=== PATIENT | male | born 1945 ===

== ENCOUNTER 2016-07-23 17:32 | Observation (INO) | payer MEDICARE, OTHER ==
[2016-07-23] MEDS ORDERED: NS 0.9% 1000 ML* 1,000 ML IV ONE (20:47)
[2016-07-23] MEDS ORDERED: Ondansetron INJ* 2 MG/ML VIAL IV ONE (20:51)
[2016-07-23] MEDS ORDERED: Morphine INJ* 4 MG/ML 1 ML CARPUJECT IV ONE (20:51)
--- NOTE | 2016-07-23 21:32 | RAD ---
Indication: Atraumatic left-sided groin pain x2 weeks Comparison: None. Technique: 4 views left hip and femur. Report: Degenerative changes of the left hip includes narrowing of the joint space, sclerotic change of the acetabular roof and mild marginal osteophyte formation laterally. The visualized bones are adequately corticated and well aligned. There is no acute fracture, dislocation or other focal abnormality. The soft tissues appear grossly normal. IMPRESSION: Degenerative changes as described above without radiographically apparent fracture or dislocation. If the patient's symptoms persist, follow-up imaging is recommended.
[2016-07-23 22:02] LABS: Hematocrit 40 % (42-52); Hemoglobin 12.7 g/dl (14.0-18.0); Mean Corpuscular HGB Conc 32 g/dl (31-36); Mean Corpuscular Hemoglobin 26 pg (27-31); Mean Corpuscular Volume 81 fL (80-94); Mean Platelet Volume 9 um3 (7.4-10.4); Red Blood Count 4.97 10^6/ul (4.0-5.4); Red Cell Distribution Width 14 % (10.5-15)
[2016-07-23 22:05] LABS: Add Diff/Slide Review? Slide Review Added; Comments Flag Yes
[2016-07-23] MEDS ORDERED: Piperac/Tazob 3.375 gm in NS* 3.375 GM/100 ML BAG IVPB ONE (22:11)
[2016-07-23 22:17] LABS: BUN/Creatinine Ratio 15.3 (8-20); C Reactive Protein 103.69 mg/L (< 5.00); Calcium 9.7 mg/dL (8.6-10.3); EGFR African American 74.3 (>60); EGFR Non-African American 57.8 (>60); Globulin 4.5 g/dL (2-4); Magnesium 1.9 mg/dL (1.9-2.7); Potassium 4.1 mmol/L (3.5-5.0); Total Bilirubin 1.3 mg/dL (0.2-1.0); Total Protein 8.5 g/dL (6.4-8.9)
[2016-07-23 22:19] LABS: Troponin I 0.03 ng/mL (<0.04)
[2016-07-23] MEDS ORDERED: Iodixanol* (CONTRAST) 320 MG/ML 100 ML SDV IV ONE ×2 (22:33→22:41)
--- NOTE | 2016-07-23 22:57 | RAD ---
HISTORY: Left thigh pain TECHNIQUE: Multiple transverse and longitudinal ultrasound images were obtained of the veins of the left lower extremity using grayscale, color Doppler, and spectral Doppler imaging with and without compression and with augmentation. FINDINGS: VEINS: The common femoral vein, deep femoral vein, femoral vein and popliteal vein are compressible throughout their course, with normal flow on color Doppler imaging and normal response to augmentation on spectral Doppler imaging. SOFT TISSUES: Grossly normal. No large popliteal fossa cyst was identified. IMPRESSION: No sonographic evidence of deep vein thrombosis.
[2016-07-23] MEDS ORDERED: NS 0.9% 1000 ML* 1,300 ML IV ONE (23:17)
--- NOTE | 2016-07-24 00:21 | ED ---
Ian Lane Claudia, scribed for Christelle Farr MD on 07/23/16 at 2045 . Abdominal Pain/Male - HPI Summary HPI Summary: 71 year old male presents to the ED with abd pain. Pt states that he has had a persistent cough for about 2 weeks and went to PCP on 07/22/16 for Sx. The nurse called him today and told him to come to the ED due to possible Pneumonia from his CXR. Pt admits to to left anterior thigh pain aggravated with left leg extension (for about 2 days). Pt notes the LLQ abd pain has been persistent for the past few days. - History of Current Complaint Chief Complaint: EDAbdPain Stated Complaint: GROIN PAIN Time Seen by Provider: 07/23/16 20:24 Hx Obtained From: Patient Onset/Duration: Lasting Days, Still Present Timing: Constant Pain Intensity: 6 Pain Scale Used: 0-10 Numeric Location: Discrete At: LLQ, Other - left anterior thigh Radiates: No Character: Sharp Aggravating Factor(s): Movement - extension of the left leg Associated Signs And Symptoms: Positive: Vomiting. Negative: Fever, Chest Pain - Allergies/Home Medications Allergies/Adverse Reactions: Allergies Allergy/AdvReac Type Severity Reaction Status Date / Time No Known Allergies Allergy Verified 07/23/16 17:48 PMH/Surg Hx/FS Hx/Imm Hx Previously Healthy: Yes Cardiovascular History: Reports: Hx Hypertension, Hx Myocardial Infarction Infectious Disease History: No Infectious Disease History: Denies: Traveled Outside the [place] in Last 30 Days - Family History Known Family History: Positive: Hypertension - Social History Occupation: Unemployed Lives: With Family Alcohol Use: None Hx Substance Use: No Hx Tobacco Use: No Review of Systems Negative: Fever Eyes: Negative ENT: Negative Cardiovascular: Negative Negative: Chest Pain Respiratory: Negative Positive: Abdominal Pain - LLQ , Vomiting Genitourinary: Negative Positive: Other - left anterior thigh pain aggreavated with leg extension Skin: Negative Neurological: Negative Psychological: Normal All Other Systems Reviewed And Are Negative: Yes Physical Exam Triage Information Reviewed: Yes Vital Signs On Initial Exam: Initial Vitals Temp Pulse Resp BP Pulse Ox 98.5 F 67 18 90/58 100 07/23/16 17:35 07/23/16 17:35 07/23/16 17:35 07/23/16 17:35 07/23/16 17:35 Vital Signs Reviewed: Yes Appearance: Positive: Well-Appearing, No Pain Distress Skin: Positive: Warm, Skin Color Reflects Adequate Perfusion, Dry Eyes: Positive: EOMI, BETINA Neck: Positive: Supple, Nontender Respiratory/Lung Sounds: Positive: Clear to Auscultation, Breath Sounds Present. Negative: Rales, Rhonchi, Wheezes Cardiovascular: Positive: RRR. Negative: Murmur, Rub Abdomen Description: Positive: Soft, Other: - LLQ tenderness. Negative: Distended, Guarding Bowel Sounds: Positive: Present Musculoskeletal: Positive: Strength/ROM Intact, Other - left anterior thigh tenderness with good ROM except difficulty extending the left leg without pain. Pulses nml, no swelling and no erythema. Neurological: Positive: Sensory/Motor Intact, Alert, Oriented to Person Place, Time, CN Intact II-III Psychiatric: Positive: Affect/Mood Appropriate Diagnostics - Vital Signs Vital Signs Temp Pulse Resp BP Pulse Ox 07/23/16 17:35 98.5 F 67 18 90/58 100 - Laboratory Lab Results: Lab Results 07/23/16 07/23/16 07/23/16 Range/Units 21:57 21:57 21:57 WBC 19.0 H (3.5-10.8) 10^3/ul RBC 4.97 (4.0-5.4) 10^6/ul Hgb 12.7 L (14.0-18.0) g/dl Hct 40 L (42-52) % MCV 81 (80-94) fL MCH 26 L (27-31) pg MCHC 32 (31-36) g/dl RDW 14 (10.5-15) % Plt Count 272 (150-450) 10^3/ul MPV 9 (7.4-10.4) um3 Neut % (Auto) 78.1 (38-83) % Lymph % (Auto) 11.4 L (25-47) % [place] % (Auto) 9.8 H (1-9) % Eos % (Auto) 0.1 (0-6) % Baso % (Auto) 0.6 (0-2) % Absolute Neuts (auto) 14.8 H (1.5-7.7) 10^3/ul Absolute Lymphs (auto) 2.2 (1.0-4.8) 10^3/ul Absolute Monos (auto) 1.9 H (0-0.8) 10^3/ul Absolute Eos (auto) 0 (0-0.6) 10^3/ul Absolute Basos (auto) 0.1 (0-0.2) 10^3/ul Absolute Nucleated RBC 0.01 10^3/ul Nucleated RBC % 0 INR (Anticoag Therapy) 1.40 H (0.89-1.11) Sodium 133 (133-145) mmol/L Potassium 4.1 (3.5-5.0) mmol/L Chloride 95 L (101-111) mmol/L Carbon Dioxide 30 (22-32) mmol/L Anion Gap 8 (2-11) mmol/L BUN 19 (6-24) mg/dL Creatinine 1.24 H (0.67-1.17) mg/dL Est GFR ( Amer) 74.3 (>60) Est GFR (Non-Af Amer) 57.8 (>60) BUN/Creatinine Ratio 15.3 (8-20) Glucose 202 H (70-100) mg/dL Lactic Acid (0.5-2.0) mmol/L Calcium 9.7 (8.6-10.3) mg/dL Magnesium 1.9 (1.9-2.7) mg/dL Total Bilirubin 1.30 H (0.2-1.0) mg/dL AST 23 (13-39) U/L ALT 15 (7-52) U/L Alkaline Phosphatase 60 (34-104) U/L Troponin I 0.03 (<0.04) ng/mL C-Reactive Protein 103.69 H (< 5.00) mg/L Total Protein 8.5 (6.4-8.9) g/dL Albumin 4.0 (3.2-5.2) g/dL Globulin 4.5 H (2-4) g/dL Albumin/Globulin Ratio 0.9 L (1-3) Lipase 13 (11.0-82.0) U/L 07/23/16 Range/Units 21:57 WBC (3.5-10.8) 10^3/ul RBC (4.0-5.4) 10^6/ul Hgb (14.0-18.0) g/dl Hct (42-52) % MCV (80-94) fL MCH (27-31) pg MCHC (31-36) g/dl RDW (10.5-15) % Plt Count (150-450) 10^3/ul MPV (7.4-10.4) um3 Neut % (Auto) (38-83) % Lymph % (Auto) (25-47) % [place] % (Auto) (1-9) % Eos % (Auto) (0-6) % Baso % (Auto) (0-2) % Absolute Neuts (auto) (1.5-7.7) 10^3/ul Absolute Lymphs (auto) (1.0-4.8) 10^3/ul Absolute Monos (auto) (0-0.8) 10^3/ul Absolute Eos (auto) (0-0.6) 10^3/ul Absolute Basos (auto) (0-0.2) 10^3/ul Absolute Nucleated RBC 10^3/ul Nucleated RBC % INR (Anticoag Therapy) (0.89-1.11) Sodium (133-145) mmol/L Potassium (3.5-5.0) mmol/L Chloride (101-111) mmol/L Carbon Dioxide (22-32) mmol/L Anion Gap (2-11) mmol/L BUN (6-24) mg/dL Creatinine (0.67-1.17) mg/dL Est GFR ( Amer) (>60) Est GFR (Non-Af Amer) (>60) BUN/Creatinine Ratio (8-20) Glucose (70-100) mg/dL Lactic Acid 2.1 H* (0.5-2.0) mmol/L Calcium (8.6-10.3) mg/dL Magnesium (1.9-2.7) mg/dL Total Bilirubin (0.2-1.0) mg/dL AST (13-39) U/L ALT (7-52) U/L Alkaline Phosphatase (34-104) U/L Troponin I (<0.04) ng/mL C-Reactive Protein (< 5.00) mg/L Total Protein (6.4-8.9) g/dL Albumin (3.2-5.2) g/dL Globulin (2-4) g/dL Albumin/Globulin Ratio (1-3) Lipase (11.0-82.0) U/L Result Diagrams: 07/23/16 21:57 07/23/16 21:57 Lab Statement: Any lab studies that have been ordered have been reviewed, and results considered in the medical decision making process. - Radiology FEMUR XRAY Xray Interpretation: No Acute Changes - DEGENERATIVE CHNAGES DESCRIBED ABOVE WITHOUT RADIOGRAPHICALLY APPARENT FRACTURE FOR DSLOCATION. IF THE PATIENTS SYMPTOMS PERSIST, FOLLOW-UP IMAGING IS RECOMMENDED. Radiology Interpretation Completed By: Radiologist - CT CHEST/ABD CT CT Interpretation: Positive (See Comments) - POSITIVE FOR AN ACUTE HEMATOMA INVOLVING THE LEFT ILIOPSOAS MUSCLE EXTENDNG FROM THE LEVEL OF THE LEFT RENAL MIDPOLE DOWN THE GROIN. THICKNESS OF THE LEFT PSOAS IS APPROXIMATELY 8.5CM OPPOSED TO THE LEFT PSOAS WHICH IS APPROXIMATELY 4.2CM. CT Interpretation Completed By: Radiologist - EKG 23:41 Cardiac Rate: Tachycardia - 111 beats/min EKG Rhythm: Atrial Fibrillation ST Segment: Non-Specific - non-specific T- wave changes - Additional Comments Diagnostic Additional Comments: Venous Doppler Study: No sonographic evidence of deep vein thrombosis Abdominal Pain Fem Course/Dx - Course Course Of Treatment: 71 yo male who last took eliquis at 7am on 07/23 for his afib comes in with a few days of llq and left groin pain (pain with hip extension) after having a cough x [address] abd shows a large psoas muscle hematoma. Labs are concerning for leukocytosis and sl elevated lactic with soft bp's and elevated hr. Before I had the CT back I did give the pt the sepsis protocol of 30cc/kg of NS and zosyn for presumed abd etiology for his sepsis. His hg is 12. I have contacted the pharmacy and if needed we would give this pt 25u/kg of kcentra to a max of 5000 units if he starts actively bleeding. Dr. Chang will be admitting the pt - Diagnoses Provider Diagnoses: Psoas hematoma, left, secondary to anticoagulant therapy, Leukocytosis - Provider Notifications Discussed Care Of Patient With: Dr. Chang is notified of the patient. Discharge - Discharge Plan Condition: Guarded Disposition: ADMITTED TO [facility] The documentation as recorded by the Ian alvarado Claudia accurately reflects the service I personally performed and the decisions made by me, Christelle Farr MD.
[2016-07-24] MEDS ORDERED: Ondansetron INJ* 2 MG/ML VIAL IV PRN (01:01)
[2016-07-24] MEDS ORDERED: Docusate CAP* 100 MG PO PRN (01:01)
[2016-07-24] MEDS ORDERED: Acetaminophen TAB* 325 MG PO PRN (01:01)
[2016-07-24] MEDS ORDERED: Senna TAB PO PRN (01:01)
[2016-07-24] MEDS ORDERED: Al Hydrox/Mg Hydrox/Simet LIQ* 30 ML UDC PO PRN (01:01)
[2016-07-24] MEDS ORDERED: GuaiFENesin DM* 5 ML UDC PO PRN (01:04)
[2016-07-24] MEDS ORDERED: oxyCODONE/Acetamin 5/325 MG* TAB ONE (01:27)
[2016-07-24] MEDS: oxyCODONE/Acetamin 5/325 MG* TAB PO PRN ×4 (01:29→21:11)
[2016-07-24 01:51] LABS: Hematocrit 31 % (42-52); Hemoglobin 9.8 g/dl (14.0-18.0); Mean Corpuscular HGB Conc 32 g/dl (31-36); Mean Corpuscular Hemoglobin 26 pg (27-31); Mean Corpuscular Volume 81 fL (80-94); Mean Platelet Volume 9 um3 (7.4-10.4); Red Blood Count 3.84 10^6/ul (4.0-5.4); Red Cell Distribution Width 14 % (10.5-15); White Blood Count 16.1 10^3/ul (3.5-10.8)
[2016-07-24 01:56] LABS: Comments Flag Yes
[2016-07-24 02:36] LABS: Add Diff/Slide Review? Slide Review Added
[2016-07-24] MEDS: Metoprolol Succinate XL TAB* 25 MG PO SCH ×2 (03:44→08:15)
--- NOTE | 2016-07-24 05:10 | PN ---
Progress Note - Progress Note Note: Repeat H&H showed significant drop in short time period. Patient asymptomatic. Will order 2 units of PRBCs with lasix 20 IV in between. May need more Lasix after second unit of blood.
[2016-07-24] MEDS ORDERED: Furosemide IV* 10 MG/ML 2 ML VIAL (20 MG) IV ONE (06:00)
[2016-07-24] MEDS ORDERED: Furosemide IV* 10 MG/ML 10 ML VIAL (100 MG) IV ONE (06:00)
[2016-07-24 08:35] LABS: Urine Bilirubin Negative (Negative); Urine Glucose 1+(50 mg/dL) (Negative); Urine Nitrite Negative (Negative)
--- NOTE | 2016-07-24 10:05 | RAD ---
INDICATION: Cough, thigh pain and left lower quadrant pain COMPARISON: None. TECHNIQUE: Multidetector CT images were obtained from the lung apices to the ischial tuberosities with 95 mL Visipaque 320IV and oral contrast. CHEST: There are bibasilar dependent hypoventilatory changes. Mild to moderate groundglass opacifications are seen. There is a small left lung base pleural effusion. There is no suspicious nodules, masses or other focal abnormality. There is moderate cardiomegaly. Coarse calcification is noted the aortic arch. There is no mediastinal or hilar lymphadenopathy. ABDOMEN \T\ PELVIS: There is a small hiatal hernia with reflux of oral contrast into the esophagus. The liver, spleen, pancreas and adrenal glands are grossly normal in appearance. The gallbladder is normal. The kidneys are normal in appearance without focal mass, calcification or signs of hydronephrosis. The oral contrast has progressed as far as the splenic flexure. The small and large bowel are not distended. There is no gross retroperitoneal or mesenteric lymphadenopathy. The left iliopsoas muscle is enlarged up to 6.9 x 7.4 cm in the axial plane. There is stranding and infiltration of the neighboring peritoneal fat. The pelvic viscera is normal in appearance. The moderately calcified abdominal aorta and iliac arteries are normal in course and diameter. There are no sinister bone lesions. IMPRESSION: 1. Left perimuscular iliopsoas retroperitoneal hematoma. 2. Groundglass opacification and cardiomegaly is consistent with congestive heart failure. 3. There are additional chronic and degenerative findings as described in the body of the report.
--- NOTE | 2016-07-24 12:54 | HP ---
HISTORY AND PHYSICAL: DATE OF ADMISSION: 07/24/16 TIME OF EVALUATION: 0100. CHIEF COMPLAINT: Left-sided abdominal and left groin pain. HISTORY OF PRESENT ILLNESS: This is a 71-year-old male with a past medical history of atrial fibrillation, on anticoagulation, who presents to the emergency room after having been found to have abnormal blood work from [place] , with left-sided pain. The patient states he has been coughing for about 3 weeks. No fever, no shortness of breath, no chest pain, and for the past 2 weeks he has had left-sided pain. Today he had 2 episodes of nausea and vomiting. The pain got significantly worse. Initially, he went to his primary where they prescribed him hydrocodone and a cough suppressant. On arrival here , the patient was found to have an iliopsoas hematoma on CAT scan imaging and recommendation by Hematology was observation. He has had no episodes of diarrhea. No falls, no trauma. Otherwise, as mentioned, remaining review of systems is negative. In the emergency room, the patient was given Zosyn, 2 L of normal saline, and morphine. PAST MEDICAL HISTORY: Atrial fibrillation, on anticoagulation; hypertension; hyperlipidemia, congestive heart failure. 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 At that point, the patient was referred to transplant center for further evaluation for cardiac transplant. It is unclear what has transpired since, but he is followed by Dr. Barr. MEDICATIONS: 1. Eliquis 5 mg p.o. daily. 2. Hydrocodone/Tylenol 1 tab 3 times a day as needed for pain. 3. Metoprolol 25 mg daily. 4. Atorvastatin 40 mg daily. 5. Lisinopril 5 mg daily. 6. Benzonatate 100 mg as needed for cough. 7. Lasix 20 mg in the morning. ALLERGIES: No known drug allergies. SOCIAL HISTORY: The patient lives at home with his , son, and daughter. No tobacco, alcohol, or illicit drug use. His healthcare proxy is his . FAMILY HISTORY: No history of bleeding or clotting disorder. REVIEW OF SYSTEMS: As mentioned in the HPI. PHYSICAL EXAMINATION GENERAL: No acute distress, resting comfortably. VITAL SIGNS: Temp 98.5, pulse rate is 106, respiratory rate is 27, oxygen saturation is 93%, blood pressure is 108/80. HEENT: Pupils are equal and reactive, anicteric. Head normocephalic. NECK: Supple. No lymphadenopathy. RESPIRATORY: Diminished breath sounds. No wheezing, rhonchi, or rales. CARDIAC: Irregularly irregular rate and rhythm, tachycardic, soft systolic murmur heard throughout. ABDOMEN: Soft. Some left lower quadrant tenderness. No rebound or guarding. He has tenderness in his left groin region and upper thigh. Normal bowel sounds. EXTREMITIES: No clubbing, cyanosis, or edema. +1 DPs. NEUROLOGICAL: Alert and oriented x3. No focal neurologic deficits. LABORATORY DATA: White count 19, hemoglobin 12.7, hematocrit 40, platelets 272. INR is 1.40. Sodium 133, potassium 4.1, chloride 95, bicarb 30, BUN 19, creatinine 1.24, glucose 202. Lactic acid 2.1. Mag 1.9. CRP 103. RADIOGRAPHIC DATA: Femur x-ray: Degenerative changes described, without radiographic appearing fracture or dislocation. Doppler study of the left lower extremity, no sonographic evidence of DVT. Chest, abdomen, and pelvis CT: Positive for acute hematoma involving the left iliopsoas muscle, extending from the level of the left renal midpole down to the groin; thickness of the left psoas is proximal 8.5 cm, as to the right psoas , which is approximately 4.2. No bowel obstruction, free air or free fluid. Negative for diverticulitis or colitis. Normal appendix. Normal kidneys, urinary tract, and urinary bladder. ASSESSMENT AND PLAN: This is a 71-year-old male with a past medical history of nonischemic cardiomyopathy, atrial fibrillation, on anticoagulation, who presents to the emergency room with left-sided abdominal pain and left groin pain, found to have a iliopsoas hematoma. I. Iliopsoas hematoma. Assessment: I suspect this is most likely from his persistent coughing and being on anticoagulation. His hemoglobin and hematocrit is low. I do not have an old one to compare it to. His vitals are stable and this has been going on for about 2 weeks. ER spoke with Hematology and pharmacy regarding Kcentra, it is not indicated as he is hemodynamically stable. Plan: I am going to admit him to telemetry, watch his hemoglobin and hematocrit closely. Darin was last taken on 07/23/16 at 7 a.m., so it should be out of the system in about 6 hours, and hold his Eliquis, as mentioned. CHRONIC MEDICAL PROBLEMS: 1. Nonischemic cardiomyopathy. It is unclear what has transpired since his transfer to [place] for cardiac transplantation evaluation. I suspect his ejection fraction may have improved as he has not undergone transplant, but it is unclear based on our records here. Plan: I am going to continue his metoprolol. We will hold his lisinopril in the setting of his bump in creatinine and repeat his labs in the morning. We will also hold his Lasix as well for tonight. We will monitor his fluid status closely. 2. Atrial fibrillation. Assessment and Plan: May consider getting Cardiology, involved now that he is off Eliquis, with his cardiac history. He will need to be followed closely. 3. Acute kidney injury. The patient with a bump in his creatinine from 2012. It is unclear if he has had creatinine in between there. We will hold lisinopril for now as mentioned and follow up his labs in the morning. We will also hold his Lasix. 4. FEN: Place him on heart healthy diet. 5. DVT prophylaxis. The patient is moderate risk. Place him on SCDs. 6. Code status. Full code. PATIENT TIME: Greater than 40 minutes were spent doing the history and physical , more than half the time was in direct patient contact. CC: [facility]* [id number]/CPS #: [id number] EAN
[2016-07-24 15:47] LABS: Hematocrit 38 % (42-52); Hemoglobin 12.2 g/dl (14.0-18.0); Mean Corpuscular HGB Conc 32 g/dl (31-36); Mean Corpuscular Hemoglobin 26 pg (27-31); Mean Corpuscular Volume 82 fL (80-94); Mean Platelet Volume 9 um3 (7.4-10.4); Red Blood Count 4.64 10^6/ul (4.0-5.4); Red Cell Distribution Width 14 % (10.5-15); White Blood Count 13.9 10^3/ul (3.5-10.8)
[2016-07-24 15:51] LABS: Comments Flag Yes
[2016-07-24 15:59] LABS: BUN/Creatinine Ratio 19.3 (8-20); Calcium 8.9 mg/dL (8.6-10.3); EGFR African American 118.1 (>60); EGFR Non-African American 91.9 (>60); Potassium 3.7 mmol/L (3.5-5.0)
[2016-07-24] MEDS ORDERED: Furosemide IV* 10 MG/ML VIAL (40 MG) IV ONE (17:00)
[2016-07-24] MEDS ORDERED: Atorvastatin* 40 MG TAB PO SCH (21:00)
[2016-07-25] MEDS: oxyCODONE/Acetamin 5/325 MG* TAB PO PRN ×3 (02:40→12:43)
[2016-07-25] MEDS: Metoprolol Succinate XL TAB* 25 MG PO SCH (08:00)
[2016-07-25 08:29] LABS: Hematocrit 40 % (42-52); Hemoglobin 12.8 g/dl (14.0-18.0); Mean Corpuscular HGB Conc 32 g/dl (31-36); Mean Corpuscular Hemoglobin 26 pg (27-31); Mean Corpuscular Volume 82 fL (80-94); Mean Platelet Volume 9 um3 (7.4-10.4); Red Blood Count 4.89 10^6/ul (4.0-5.4); Red Cell Distribution Width 14 % (10.5-15); White Blood Count 15.4 10^3/ul (3.5-10.8)
[2016-07-25 08:48] LABS: BUN/Creatinine Ratio 19.5 (8-20); Calcium 9.1 mg/dL (8.6-10.3); EGFR African American 128.8 (>60); EGFR Non-African American 100.2 (>60); Potassium 3.7 mmol/L (3.5-5.0)
[2016-07-25 11:09] VITALS: BP 123/77
--- NOTE | 2016-07-25 11:31 | PN ---
Hospitalist Progress Note . HOSPITALIST DISCHARGE NOTE: See dc instructions and summary by me. Patient stable for dc dc instructions reviewed with the patient at the bedside. DC patient home today.
--- NOTE | 2016-07-26 07:53 | DS ---
CC: Dr. Ethel Barr DISCHARGE SUMMARY: DATE OF ADMISSION: 07/24/16 DATE OF DISCHARGE: 07/25/16 STATUS DURING HOSPITALIZATION: Inpatient. OUTPATIENT ACADEMIC COMPUTING DIRECTOR: Dr. Ethel Barr, [facility] Cardiology. PRINCIPAL DISCHARGE DIAGNOSIS: Left psoas muscle hematoma suffered while coughing in the setting of anticoagulation with Eliquis. SECONDARY DIAGNOSES: 1. History of atrial fibrillation on anticoagulation. 2. Hypertension. 3. Hyperlipidemia. 4. Congestive heart failure with echocardiograph in 2007 showing biventricular failure and ejection fraction reportedly between 7-10% with history of referral to transplant center for cardiac transplant evaluation. DISCHARGE MEDICATIONS: 1. Hold Eliquis until otherwise instructed. 2. Hydrocodone/Tylenol ([place]) one tablet up to every four hours p.r.n. pain ( prescribed) 3. Metoprolol 25 mg by mouth daily. 4. Atorvastatin 40 mg by mouth daily. 5. Lisinopril 5 mg by mouth daily. 6. Benzonatate 100 mg as needed for cough. 7. Lasix 20 mg in the morning. HISTORY OF PRESENT ILLNESS/HOSPITAL COURSE: Please see the H and P by Dr. Tri Chang on 07/24/16. In brief, Mr. Leonard is a 71-year-old gentleman with the medical history listed above who has been coughing for about three weeks. The patient denies any fever, no shortness of breath, but was having some left- sided chest pain. The patient had two episodes of nausea and vomiting, andsought medical evaluation and was prescribed a "pain killer" and a cough suppressant. The patient had an iliopsoas hematoma on CT scan, and was recommended for observation. No falls, no trauma reported. The only factor was his coughing. The patient was resuscitated in the emergency room; and, based on his hemoglobin declining from 12 down to 9, received two units of red blood cells and his hemoglobin appropriately bumped back up to 12. The patient' s pain is being treated with oral opiates, and he is doing well with this. He can ambulate independently and he is being discharged home in stable condition. The patient was considered for Kcentra, but this was not indicated as the patient was hemodynamically stable at presentation. The patient remained hemodynamically stable throughout the hosptialization; and , given his decreasing pain over time and his being off anticoagulation and the appropriate bump in his hemoglobin following transfusion, the patient is being discharged home in stable condition. Again, the patient last took Eliquis on at 7 a.m., and so the patient should be free of the effect of Eliquis by July 25, the day of discharge. In terms of his other chronic medical problems, these seem stable. The patient got Lasix in between his packed red blood cell transfusions and he seems to be tolerating the extra volume appropriately. Presumably, the blood loss caused some degree of hypovolemia which was presumably corrected given his hemoglobin is now back to where his baseline usually stands. He should follow up with Dr. Barr as well as [facility] in the next week. [facility] is currently closed and I will ask the hospitalist coordinator to make followup appointments for the patient tomorrow, 07/26/16. This could be communicated back to the patient directly. Regarding his Eliquis , he does have a high risk for stroke with his atrial fibrillation and re- anticoagulation should be considered when the patient is stable, and this will be a question for the outpatient cardiology and primary care team. For now, the risk of rebleeding is too high to initiate anticoagulation and they will be withheld until further instruction. TIME SPENT: Total time taken to discharge Ms. Leonard was 45 minutes, greater than half that time spent going over discharge instructions. He was told to come back to the hospital if he has any worsening symptoms most notably worsening pain or lightheadedness to signify worsening blood loss, and he said he will comply with this instruction. [id number]/[facility] #: [id number] [facility]ric
== END 2016-07-25 13:00 | disposition home or self-care (01) ==
LOC: ED 17:32 → MEDTELE 07-24 01:01
PROVIDERS: ADMIT Pediatrics; ATTEND Internal Medicine
DX: S30.1XXA Contusion of abdominal wall, initial encounter (principal); X58.XXXA Exposure to other specified factors, initial encounter; Y92.9 Unspecified place or not applicable; R05 Cough; D64.9 Anemia, unspecified; D72.829 Elevated white blood cell count, unspecified; I48.91 Unspecified atrial fibrillation; Z79.01 Long term (current) use of anticoagulants; I11.0 Hypertensive heart disease with heart failure; I50.9 Heart failure, unspecified; Z79.899 Other long term (current) drug therapy; E78.5 Hyperlipidemia, unspecified; I25.5 Ischemic cardiomyopathy; I25.2 Old myocardial infarction; M79.652 Pain in left thigh
CPT/HCPCS: 36415; 71260; 74177; 80048; 80053; 81003; 83605; 83690; 83735; 83880; 84484; 85025; 85027; 85610; 86140; 86850; 86900; 86901; 86922; 87040; 93005; 96361; 96365; 96375; 96376; 99285; A9270-GY; G0378; J1940; J2270; J2405; J2543; P9016; P9040; Q9967

== ENCOUNTER 2016-08-20 23:03 | Emergency (ER) | payer MEDICARE, OTHER ==
--- NOTE | 2016-08-21 00:18 | ED ---
Pop Lane Janilya, scribed for Weston Trimble MD on 08/21/16 at 0012 . Abdominal Pain/Male - HPI Summary HPI Summary: A 71 y/o male came in to [facility] presenting w/ a gradual onset of constant diffuse abd pain starting tonight at 2000. He states he had vomited one time at 2100. In addition, pt has mild diarrhea, no fever. Pt did not take medication for his condition. 2 weeks ago, pt had similar Sx. Pt did not see any medical professional for this issue. - History of Current Complaint Chief Complaint: EDAbdPain Stated Complaint: ABD PAIN/VOMITING Time Seen by Provider: 08/21/16 00:05 Hx Obtained From: Patient Onset/Duration: Gradual Onset Timing: Constant Severity Initially: Moderate Severity Currently: Moderate Pain Intensity: 7 Pain Scale Used: 0-10 Numeric Location: Diffuse Radiates: No Character: Dull Aggravating Factor(s): Nothing Alleviating Factor(s): Nothing - Allergies/Home Medications Allergies/Adverse Reactions: Allergies Allergy/AdvReac Type Severity Reaction Status Date / Time No Known Allergies Allergy Verified 07/23/16 17:48 PMH/Surg Hx/FS Hx/Imm Hx Endocrine/Hematology History: Denies: Hx Diabetes Cardiovascular History: Reports: Hx Congestive Heart Failure, Hx Hypercholesterolemia, Hx Hypertension, Hx Myocardial Infarction History: Denies: Hx Dialysis, Hx Renal Disease - Surgical History Surgery Procedure, Year, and Place: RT GROIN CATHETERIZATION/CARDIAC WORKUP Infectious Disease History: No Infectious Disease History: Denies: Traveled Outside the [place] in Last 30 Days - Family History Known Family History: Positive: Hypertension Negative: Cardiac Disease, Diabetes - Social History Lives: With Family Alcohol Use: None Hx Substance Use: No Substance Use Type: Reports: None Hx Tobacco Use: No Smoking Status (MU): Never Smoked Tobacco Review of Systems Negative: Fever Positive: Abdominal Pain, Vomiting, Diarrhea, Nausea All Other Systems Reviewed And Are Negative: Yes Physical Exam Triage Information Reviewed: Yes Vital Signs On Initial Exam: Initial Vitals Temp Pulse Resp BP Pulse Ox 97.3 F 104 16 164/92 99 08/20/16 23:19 08/20/16 23:19 08/20/16 23:19 08/20/16 23:19 08/20/16 23:19 Vital Signs Reviewed: Yes Appearance: Positive: Well-Appearing, No Pain Distress Skin: Positive: Warm Head/Face: Positive: Normal Head/Face Inspection Eyes: Positive: BETINA ENT: Positive: Hearing grossly normal Neck: Positive: Supple Respiratory/Lung Sounds: Positive: Clear to Auscultation, Breath Sounds Present Cardiovascular: Positive: Normal Abdomen Description: Positive: Nontender, No Organomegaly, Soft Bowel Sounds: Positive: Present Neurological: Positive: Sensory/Motor Intact, Normal Gait Psychiatric: Positive: Affect/Mood Appropriate Diagnostics - Vital Signs Vital Signs Temp Pulse Resp BP Pulse Ox 08/20/16 23:19 97.3 F 104 16 164/92 99 - Laboratory Result Diagrams: 08/21/16 00:30 08/21/16 00:30 Lab Statement: Any lab studies that have been ordered have been reviewed, and results considered in the medical decision making process. Re-Evaluation - Re-Evaluation First Eval Change: Improved Abdominal Pain Fem Course/Dx - Diagnoses Provider Diagnoses: Gastroenteritis Discharge - Discharge Plan Condition: Improved Disposition: HOME Patient Education Materials: Gastroenteritis (ED) Referrals: [facility] [Outside] Additional Instructions: Follow up with a primary care provider. The documentation as recorded by the Pop alvarado Janilya accurately reflects the service I personally performed and the decisions made by , Weston Trimble MD.
[2016-08-21 00:48] LABS: Hematocrit 43 % (42-52); Hemoglobin 13.6 g/dl (14.0-18.0); Mean Corpuscular HGB Conc 32 g/dl (31-36); Mean Corpuscular Hemoglobin 26 pg (27-31); Mean Corpuscular Volume 82 fL (80-94); Mean Platelet Volume 10 um3 (7.4-10.4); Red Blood Count 5.18 10^6/ul (4.0-5.4); Red Cell Distribution Width 15 % (10.5-15)
[2016-08-21 00:59] LABS: Albumin 3.9 g/dL (3.2-5.2); BUN/Creatinine Ratio 15.6 (8-20); C Reactive Protein 4.5 mg/L (< 5.00); Calcium 9.7 mg/dL (8.6-10.3); EGFR African American 128.8 (>60); EGFR Non-African American 100.2 (>60); Globulin 3.8 g/dL (2-4); Magnesium 1.9 mg/dL (1.9-2.7); Potassium 3.5 mmol/L (3.5-5.0); Total Bilirubin 2.1 mg/dL (0.2-1.0); Total Protein 7.7 g/dL (6.4-8.9)
[2016-08-21] MEDS: Ondansetron INJ* 2 MG/ML VIAL IV ONE ×2 (01:46→02:12)
[2016-08-21] MEDS: NS 0.9% 1000 ML* 1,000 ML IV ONE ×2 (01:46→02:13)
[2016-08-21] MEDS ORDERED: Ondansetron ODT TAB* 4 MG PO ONE (01:49)
[2016-08-21] MEDS ORDERED: Ondansetron ODT TAB* 4 MG ONE (01:49)
[2016-08-21 03:07] VITALS: BP 147/100
== END 2016-08-21 02:58 | disposition home or self-care (01) ==
LOC: ED 23:03
DX: K52.9 Noninfective gastroenteritis and colitis, unspecified (principal); R10.9 Unspecified abdominal pain; R11.2 Nausea with vomiting, unspecified; R19.7 Diarrhea, unspecified
CPT/HCPCS: 36415; 80053; 83605; 83690; 83735; 85025; 86140; 96374; 99282; A9270-GY; J2405

== ENCOUNTER 2016-08-22 09:10 | Emergency (ER) | payer MEDICARE, OTHER ==
[2016-08-22 09:58] VITALS: BP 198/122
[2016-08-22] MEDS ORDERED: Aspirin Low Dose CHEW TAB* 81 MG PO ONE (10:48)
[2016-08-22] MEDS ORDERED: Morphine INJ* 2 MG/ML 1 ML CARPUJECT IV ONE (10:50)
--- NOTE | 2016-08-22 12:05 | UC ---
kevin Lane Timothy, scribed for Peyton Wills DO on 08/22/16 at 1037 . 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 His pain and vomiting began on 08/20, and he appeared to the ED, where he was diagnosed with gastroenteritis. Upon returning home he continued to vomit and feel his pain increase. He denies any diarrhea or blood in the vomit. He denies any other Sx. His Hx includes NJ, HTN, hypercholesterolemia. - History of Current Complaint Stated Complaint: ABD PAIN VOMITING Time Seen by Provider: 08/22/16 10:31 Hx Obtained From: Patient Onset/Duration: Gradual Onset, Lasting Days, Still Present Timing: Constant Onset Severity: Moderate Current Severity: Moderate Pain Intensity: 10 - /10 Pain Location at: diffuse abdomen Associated Signs & Symptoms: Positive: Abdominal Pain, Diaphoresis, Nausea, Vomiting. Negative: Cough, Chest Pain, Diarrhea, Fever, SOB - Allergy/Home Medications Allergies/Adverse Reactions: Allergies Allergy/AdvReac Type Severity Reaction Status Date / Time No Known Allergies Allergy Verified 07/23/16 17:48 PMH/Surg Hx/FS Hx/Imm Hx Endocrine History Of: Denies: Diabetes Cardiovascular History Of: Reports: Cardiac Disorders - NJ, Hypertension, Myocardial Infarction, Congestive Heart Failure GI/ History Of: Denies: Renal Disease - Surgical History Surgical History: Yes Surgery Procedure, Year, and Place: RT GROIN CATHETERIZATION/CARDIAC WORKUP - Family History Known Family History: Positive: Hypertension Negative: Cardiac Disease, Diabetes - Social History Lives: With Family Alcohol Use: None Substance Use Type: None Smoking Status (MU): Never Smoked Tobacco Review of Systems Constitutional: Other - diaphoresis Skin: Negative Eyes: Negative ENT: Negative Respiratory: Negative Cardiovascular: Negative Gastrointestinal: Abdominal Pain, Vomiting Genitourinary: Negative Motor: Negative Neurovascular: Negative Musculoskeletal: Negative Neurological: Negative Psychological: Negative All Other Systems Reviewed And Are Negative: Yes Physical Exam Triage Information Reviewed: Yes Appearance: Well-Appearing, Well-Nourished, Pain Distress - severe Vital Signs: Initial Vital Signs Temp 96.0 F 08/22/16 09:53 Pulse 95 08/22/16 09:53 Resp 28 08/22/16 09:53 BP 198/122 08/22/16 09:53 Pulse Ox 100 08/22/16 09:53 Vital Signs Reviewed: Yes Eyes: Positive: Other: - possible icterous ENT: Positive: Hearing grossly normal. Negative: Muffled/hoarse voice Neck: Positive: Supple, Nontender Respiratory: Positive: Lungs clear, Normal breath sounds, No respiratory distress, No accessory muscle use Cardiovascular: Positive: No Murmur, Tachycardia. Negative: RRR - irregular heartbeat Abdomen Description: Positive: Soft, Guarding. Negative: Nontender - diffuse Bowel Sounds: Positive: Present Musculoskeletal Exam: Normal Neurological: Positive: Alert, Muscle Tone Normal Psychological Exam: Normal Psychological: Positive: Age Appropriate Behavior Skin Exam: Normal Diagnostics - EKG Cardiac Rate: Tachycardia - 104 BPM, Afib Re-Evaluation - Re-Evaluation First Eval Re-Evaluation Time: 10:43 Change: Unchanged Comment: Discussed possible Tx options Second Eval Re-Evaluation Time: 10:51 Change: Unchanged Comment: Pt was informed of decision to transfer care to [facility] Third Eval Re-Evaluation Time: 11:01 Change: Unchanged Comment: After further examination, Pt has slightly icteric sclera, although Pt' s daughter says that is his normal color. 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 After examination and review of his EKG, which showed Afib, he will be transferred by ambulance for further care to [facility]. - Differential Dx - Multi-Symptom Differential Diagnoses: Other - htn crisis, NJ, pancreatitis, ischemic bowel, afib, dehydration, hepatitis Provider Diagnoses: afib, abd pain unknown rojelio Discharge - Discharge Plan Condition: Stable Disposition: TRANS HIGHER LVL OF CARE FAC Discharge Disposition Comment: [facility] by ambulance Referrals: No Primary Care Phys,NOPCP [Medical Doctor] - The documentation as recorded by the kevin alvarado Timothy accurately reflects the service I personally performed and the decisions made by me, Peyton Wills DO.
== END 2016-08-22 11:22 | disposition short-term general hospital (02) ==
LOC: UCEAST 09:10
DX: R10.84 Generalized abdominal pain (principal); I48.91 Unspecified atrial fibrillation; R11.2 Nausea with vomiting, unspecified
CPT/HCPCS: 93005; 99213; G0463

== ENCOUNTER 2016-08-22 11:46 | Inpatient (IN) | payer MEDICARE, OTHER ==
[2016-08-22] MEDS ORDERED: Pantoprazole IV* 40 MG IV ONE (13:08)
[2016-08-22] MEDS ORDERED: Ondansetron INJ* 2 MG/ML VIAL IV ONE (13:08)
[2016-08-22] MEDS ORDERED: NS 0.9% 1000 ML* 1,000 ML IV ONE ×2 (13:08→15:42)
[2016-08-22 13:22] LABS: Hematocrit 49 % (42-52); Hemoglobin 15.8 g/dl (14.0-18.0); Mean Corpuscular HGB Conc 32 g/dl (31-36); Mean Corpuscular Hemoglobin 27 pg (27-31); Mean Corpuscular Volume 82 fL (80-94); Mean Platelet Volume 10 um3 (7.4-10.4); Red Blood Count 5.96 10^6/ul (4.0-5.4); Red Cell Distribution Width 15 % (10.5-15); White Blood Count 14.2 10^3/ul (3.5-10.8)
[2016-08-22 13:34] LABS: ALT 394 U/L (7-52); Albumin 4.2 g/dL (3.2-5.2); Alkaline Phosphatase 155 U/L (34-104); BUN/Creatinine Ratio 13.4 (8-20); Blood Urea Nitrogen 13 mg/dL (6-24); C Reactive Protein 13.11 mg/L (< 5.00); CO2 Carbon Dioxide 26 mmol/L (22-32); Calcium 10.4 mg/dL (8.6-10.3); Chloride 100 mmol/L (101-111); EGFR African American 98.7 (>60); EGFR Non-African American 76.7 (>60); Globulin 4.2 g/dL (2-4); Glucose 177 mg/dL (70-100); Lipase 14 U/L (11.0-82.0); Sodium 136 mmol/L (133-145); Total Protein 8.4 g/dL (6.4-8.9)
--- NOTE | 2016-08-22 14:56 | RAD ---
INDICATION: Right upper quadrant pain COMPARISON: CT July 23, 2016 TECHNIQUE: Longitudinal and transverse scans of the right upper quadrant were obtained. Doppler interrogation of the hepatic and portal venous system was performed. FINDINGS: Liver: The liver is normal in size and echogenicity. There are no focal masses. The liver measures 11.5 cm in cephalocaudal dimension. Vessels: There is normal hepatic and portal venous flow. Bile ducts: There is no evidence of intrahepatic or extrahepatic ductal dilatation. The common duct measures 0.5 cm. Gallbladder: There is gallbladder sludge.. There is no evidence of cholelithiasis, thickening of the gallbladder wall, or pericholecystic fluid. Pancreas: The visualized pancreas appears normal Right kidney: The right kidney is normal in size and echogenicity. There are no masses or calculi. There is no evidence of hydronephrosis. The right kidney measures 10.0 x 5.2 x 4.3 cm. IVC and aorta: The aorta and superior vena cava appear normal. Fluid: There is no ascites. Other: None. IMPRESSION: GALLBLADDER SLUDGE, OTHERWISE NEGATIVE.
[2016-08-22] MEDS ORDERED: Piperac/Tazob 3.375 gm in NS* 3.375 GM/100 ML BAG IVPB ONE (16:08)
[2016-08-22] MEDS ORDERED: Morphine INJ* 2 MG/ML 1 ML CARPUJECT IV PRN (17:02)
[2016-08-22] MEDS ORDERED: Labetalol IV* 5 MG/ML 20 ML VIAL IV PUSH ONE (17:02)
[2016-08-22] MEDS ORDERED: Iohexol 300* (CONTRAST) 10 ML SDV IV ONE (17:23)
[2016-08-22 18:14] LABS: Troponin I 0.04 ng/mL (<0.04)
--- NOTE | 2016-08-22 18:16 | RAD ---
INDICATION: Epigastric abdominal pain. COMPARISON: Comparison is made with a prior CT of the abdomen and pelvis from July 23, 2016. Correlation is also made with a prior right upper quadrant ultrasound from August 22, 2016. TECHNIQUE: A CT scan of the abdomen and pelvis was performed with intravenous and oral contrast following intravenous injection of 100 ml of Omnipaque 300 nonionic contrast. Contiguous axial sections were obtained from the lung bases through the symphysis pubis. Images were reconstructed in the coronal and sagittal planes. FINDINGS: There is mild dependent bilateral lower lobe subsegmental atelectasis. No pleural effusion is present. The heart appears enlarged and unchanged and is only partially visualized on this study. The liver and spleen are within normal limits in size without significant focal abnormality. The gallbladder is distended. No calcified gallstones are seen. The pancreas appears to be within normal limits in size. The kidneys and adrenal glands are normal in size. No hydronephrosis is seen. No significant focal renal abnormality is seen. The aorta is normal in caliber with mild calcific plaque present. No significant enlarged retroperitoneal lymph nodes are seen. There is enlargement of the left psoas muscle with a heterogeneous mass with mixed increased and decreased density present within the muscle. This measures 7.5 x 3.8 x 4.9 cm and previously measured 13.0 x 6.2 x 7.2 cm. This is most consistent with a resolving hematoma as previously noted. The stomach, small and large bowel appear nondistended. The appendix is within normal limits. There is no evidence for diverticulitis or colitis. No free intraperitoneal air or fluid is seen. No significant focal osseous abnormality is seen. IMPRESSION: 1. DISTENDED GALLBLADDER WITHOUT WALL THICKENING OR INFLAMMATORY CHANGE. 2. HEMATOMA IN THE LEFT PSOAS MUSCLE DECREASED IN SIZE FROM THE PRIOR EXAM.
[2016-08-22] MEDS ORDERED: Labetalol IV* 5 MG/ML 20 ML VIAL IV PUSH PRN (18:17)
--- NOTE | 2016-08-22 19:19 | ED ---
Ministerio Lane Adam, scribed for Ruy Mahmood MD on 08/22/16 at 1256 . Abdominal Pain/Male - HPI Summary HPI Summary: Pt is a 71 year old male presenting with abdominal pain and vomiting. He began having symptoms 2 nights ago and was diagnosed with gastroenteritis. He was feeling better yesterday so he began eating solid food again. He had no symptoms at all yesterday. This morning the pt woke up with the same abdominal pain again and he has vomited 3x today. He denies any diarrhea. No Hx of abdominal surgeries. Hx of heart surgery. - History of Current Complaint Chief Complaint: EDAbdPain Stated Complaint: ABD PAIN Time Seen by Provider: 08/22/16 12:48 Hx Obtained From: Patient Onset/Duration: Gradual Onset, Lasting Days, Still Present Timing: Intermittent Severity Initially: Moderate Severity Currently: Moderate Pain Intensity: 10 Pain Scale Used: 0-10 Numeric Location: Epigastric Radiates: No Aggravating Factor(s): Food - Possibly Alleviating Factor(s): Nothing Associated Signs And Symptoms: Positive: Vomiting. Negative: Diarrhea - Allergies/Home Medications Allergies/Adverse Reactions: Allergies Allergy/AdvReac Type Severity Reaction Status Date / Time No Known Allergies Allergy Verified 07/23/16 17:48 Home Medications: Home Medications Apixaban* [Eliquis*] 5 mg PO BID 08/22/16 [History Confirmed 08/22/16] Furosemide TAB* [Lasix TAB*] 20 mg PO DAILY 08/22/16 [History Confirmed 08/22/16 ] Lisinopril TAB* [Prinivil TAB*] 5 mg PO DAILY 08/22/16 [History Confirmed ] PMH/Surg Hx/FS Hx/Imm Hx Endocrine/Hematology History: Denies: Hx Diabetes Cardiovascular History: Reports: Hx Congestive Heart Failure, Hx Hypercholesterolemia, Hx Hypertension, Hx Myocardial Infarction History: Denies: Hx Dialysis, Hx Renal Disease - Surgical History Surgery Procedure, Year, and Place: RT GROIN CATHETERIZATION/CARDIAC WORKUP - Immunization History Date of Tetanus Vaccine: unk Date of Influenza Vaccine: fall 2015 Infectious Disease History: Denies: Traveled Outside the [place] in Last 30 Days - Family History Known Family History: Positive: Hypertension Negative: Cardiac Disease, Diabetes - Social History Occupation: Retired Lives: With Family - Son Alcohol Use: None Hx Substance Use: No Substance Use Type: Reports: None Hx Tobacco Use: No Smoking Status (MU): Never Smoked Tobacco Review of Systems Constitutional: Negative Negative: Fever Positive: Abdominal Pain, Vomiting. Negative: Diarrhea Positive: Other - Ecchymosis on the left forearm All Other Systems Reviewed And Are Negative: Yes Physical Exam Triage Information Reviewed: Yes Vital Signs On Initial Exam: Initial Vitals Temp Pulse Resp BP Pulse Ox 97.2 F 103 15 189/134 99 08/22/16 12:16 08/22/16 12:16 08/22/16 12:16 08/22/16 12:16 08/22/16 12:16 Vital Signs Reviewed: Yes Appearance: Positive: Well-Appearing, No Pain Distress Skin: Positive: Warm, Skin Color Reflects Adequate Perfusion, Dry, Other - Ecchymosis in the anterior left forearm proximally. Head/Face: Positive: Normal Head/Face Inspection Eyes: Positive: Normal ENT: Positive: Normal ENT inspection Neck: Positive: Supple, Nontender Respiratory/Lung Sounds: Positive: Clear to Auscultation, Breath Sounds Present Cardiovascular: Positive: RRR, Pulses are Symmetrical in both Upper and Lower Extremities Abdomen Description: Positive: Soft, Other: - Tenderness in the epigastrium Bowel Sounds: Positive: Present Musculoskeletal: Positive: Normal Neurological: Positive: Normal Psychiatric: Positive: Normal, Affect/Mood Appropriate Diagnostics - Vital Signs Vital Signs Temp Pulse Resp BP Pulse Ox 08/22/16 12:16 97.2 F 103 15 189/134 99 - Laboratory Lab Results: Lab Results 08/22/16 08/22/16 08/22/16 Range/Units 12:11 12:11 12:11 WBC 14.2 H (3.5-10.8) 10^3/ul RBC 5.96 H (4.0-5.4) 10^6/ul Hgb 15.8 (14.0-18.0) g/dl Hct 49 (42-52) % MCV 82 (80-94) fL MCH 27 (27-31) pg MCHC 32 (31-36) g/dl RDW 15 (10.5-15) % Plt Count 193 (150-450) 10^3/ul MPV 10 (7.4-10.4) um3 Neut % (Auto) 87.2 H (38-83) % Lymph % (Auto) 6.8 L (25-47) % [place] % (Auto) 5.1 (1-9) % Eos % (Auto) 0.4 (0-6) % Baso % (Auto) 0.5 (0-2) % Absolute Neuts (auto) 12.4 H (1.5-7.7) 10^3/ul Absolute Lymphs (auto) 1.0 (1.0-4.8) 10^3/ul Absolute Monos (auto) 0.7 (0-0.8) 10^3/ul Absolute Eos (auto) 0 (0-0.6) 10^3/ul Absolute Basos (auto) 0.1 (0-0.2) 10^3/ul Absolute Nucleated RBC 0.01 10^3/ul Nucleated RBC % 0.1 INR (Anticoag Therapy) 1.18 H (0.89-1.11) Sodium 136 (133-145) mmol/L Potassium TNP Chloride 100 L (101-111) mmol/L Carbon Dioxide 26 (22-32) mmol/L Anion Gap TNP BUN 13 (6-24) mg/dL Creatinine 0.97 (0.67-1.17) mg/dL Est GFR ( Amer) 98.7 (>60) Est GFR (Non-Af Amer) 76.7 (>60) BUN/Creatinine Ratio 13.4 (8-20) Glucose 177 H (70-100) mg/dL Lactic Acid (0.5-2.0) mmol/L Calcium 10.4 H (8.6-10.3) mg/dL Total Bilirubin 8.40 H D (0.2-1.0) mg/dL AST TNP ALT 394 H (7-52) U/L Alkaline Phosphatase 155 H (34-104) U/L Troponin I (<0.04) ng/mL C-Reactive Protein 13.11 H (< 5.00) mg/L Total Protein 8.4 (6.4-8.9) g/dL Albumin 4.2 (3.2-5.2) g/dL Globulin 4.2 H (2-4) g/dL Albumin/Globulin Ratio 1.0 (1-3) Lipase 14 (11.0-82.0) U/L 08/22/16 08/22/16 Range/Units 12:11 15:37 WBC (3.5-10.8) 10^3/ul RBC (4.0-5.4) 10^6/ul Hgb (14.0-18.0) g/dl Hct (42-52) % MCV (80-94) fL MCH (27-31) pg MCHC (31-36) g/dl RDW (10.5-15) % Plt Count (150-450) 10^3/ul MPV (7.4-10.4) um3 Neut % (Auto) (38-83) % Lymph % (Auto) (25-47) % [place] % (Auto) (1-9) % Eos % (Auto) (0-6) % Baso % (Auto) (0-2) % Absolute Neuts (auto) (1.5-7.7) 10^3/ul Absolute Lymphs (auto) (1.0-4.8) 10^3/ul Absolute Monos (auto) (0-0.8) 10^3/ul Absolute Eos (auto) (0-0.6) 10^3/ul Absolute Basos (auto) (0-0.2) 10^3/ul Absolute Nucleated RBC 10^3/ul Nucleated RBC % INR (Anticoag Therapy) (0.89-1.11) Sodium (133-145) mmol/L Potassium 4.6 Chloride (101-111) mmol/L Carbon Dioxide (22-32) mmol/L Anion Gap BUN (6-24) mg/dL Creatinine (0.67-1.17) mg/dL Est GFR ( Amer) (>60) Est GFR (Non-Af Amer) (>60) BUN/Creatinine Ratio (8-20) Glucose (70-100) mg/dL Lactic Acid 2.8 H* (0.5-2.0) mmol/L Calcium (8.6-10.3) mg/dL Total Bilirubin (0.2-1.0) mg/dL AST 214 H ALT (7-52) U/L Alkaline Phosphatase (34-104) U/L Troponin I 0.04 H* (<0.04) ng/mL C-Reactive Protein (< 5.00) mg/L Total Protein (6.4-8.9) g/dL Albumin (3.2-5.2) g/dL Globulin (2-4) g/dL Albumin/Globulin Ratio (1-3) Lipase (11.0-82.0) U/L Result Diagrams: 08/22/16 12:11 08/22/16 15:37 Lab Statement: Any lab studies that have been ordered have been reviewed, and results considered in the medical decision making process. - Additional Comments Diagnostic Additional Comments: Gallbladder Ultrasound - IMPRESSION: GALLBLADDER SLUDGE, OTHERWISE NEGATIVE. LACTIC ACID - 2.8 Abdominal Pain Fem Course/Dx - Course Course Of Treatment: Mr. Leonard presented C/O epigastric pain and vomiting. He had presented Monday night with the same symptoms which resolved. He remained symptom free on Monday and then it recurred this AM. He has only had a little soup last evening. His labs indicated a cholangitis although his U/S is negative. He has been treated symptomatically as well as receiving fluids and antibiotics. - Diagnoses Provider Diagnoses: Cholangitis Discharge - Discharge Plan Condition: Stable Disposition: ADMITTED TO [facility] The documentation as recorded by the Ministerio alvarado Adam accurately reflects the service I personally performed and the decisions made by me, Ruy Mahmood MD.
[2016-08-22 20:26] LABS: Urine Bacteria 1+ (Absent); Urine Bilirubin Negative (Negative); Urine Glucose Negative (Negative); Urine Nitrite Negative (Negative)
[2016-08-22 20:51] LABS: Iron 53 ug/dL (50-212); Total Iron Binding Capacity 326 mcg/dL (250-450); Transferrin 233 mg/dL (203-362)
[2016-08-22] MEDS ORDERED: Apixaban* 5 MG TAB PO SCH (21:00)
[2016-08-22] MEDS: Heparin VIAL(*) 5000 UNITS/ML VIAL (FIVE THOUSAND) SUBCUT SCH (22:01)
[2016-08-22] MEDS: Piperac/Tazob 3.375 gm in NS* 3.375 GM/100 ML BAG IVPB SCH (22:06)
[2016-08-22] MEDS: NS 0.9% 1000 ML* 1,000 ML IV SCH (22:06)
--- NOTE | 2016-08-23 00:36 | HP ---
HISTORY AND PHYSICAL: DATE OF ADMISSION: 08/22/16 PRIMARY CARE PHYSICIAN: Dr. Rudolph at [facility]. CHIEF COMPLAINT: Abdominal pain. HISTORY OF PRESENT ILLNESS: Mr. Leonard is a 71-year-old male with past medical history of hypertension, hyperlipidemia, CAD, status post SC, systolic congestive heart failure, with last reported ejection fraction of 7% to 10%, AFib on Eliquis, who was hospitalized recently for a left psoas hematoma, presents to the hospital with abdominal pain. The patient states that symptoms began 2 nights ago with a burning pain and he also experienced some nausea and vomiting x2. He presented to the emergency department, labs were notable at that time for a mild leukocytosis, which has been chronic and some mild LFT abnormalities. The patient was diagnosed with gastroenteritis and discharged home. He states initially he felt better; however, early this morning, he tried some rice soup when he developed this burning pain again. He states that it is present in the epigastric area and left lower quadrant. He went to [facility] where he had nausea and vomiting 3 times there, which he reports was mostly some food including the rice soup and was otherwise clear. No blood was noted. He also felt diaphoretic during the episodes of emesis. Due to his persistent symptoms, [facility] transferred the patient to the emergency department. He reports he has felt well otherwise over the past week since his discharge from the hospital on 07/25/16. He has been moving his bowels. Denies any constipation or diarrhea, has not been having any fever or chills. No shortness of breath or cough. He states he has never had a pain like this before. In the emergency department, he was noted to have worsening LFT abnormalities and hospitalist service was consulted for possible admission. PAST MEDICAL HISTORY: 1. AFib, on Eliquis. 2. Hypertension. 3. Hyperlipidemia. 4. CAD, status post SC. 5. CHF with last reported ejection fraction of 7% to 10% on a 2014 ROSA M. PAST SURGICAL HISTORY: Cardiac catheterization. MEDICATIONS: 1. Lisinopril 5 mg by mouth daily. 2. Eliquis 5 mg by mouth 2 times daily, which the patient was instructed to hold after his last hospitalization; however, he did not understand this. 3. Atorvastatin 40 mg by mouth daily, which the patient states he has not been taking. 4. Metoprolol succinate 25 mg by mouth daily. 5. Lasix 20 mg by mouth daily. 6. Senna one tablet by mouth daily. 7. Tessalon 100 mg by mouth 3 times daily as needed for cough. FAMILY HISTORY: Noncontributory. SOCIAL HISTORY: The patient denies any cigarette, alcohol, tobacco. No illicit drug use. The patient reports no known drug allergies. REVIEW OF SYSTEMS: A 12-point review of systems is negative except as noted above in HPI. PHYSICAL EXAMINATION GENERAL: The patient is a middle-aged man, lying in bed, in no apparent distress. VITAL SIGNS: On admission, temperature 97.2, heart rate of 103, respiratory rate of 15, O2 saturation 99% on room air, blood pressure 189/134. HEENT: Possibly some mild scleral icterus, moist mucous membranes. No cervical adenopathy. CARDIOVASCULAR: Tachycardic, irregularly irregular. No murmurs appreciated. ABDOMEN: Soft, nondistended. Bowel sounds positive, tender to palpation in the epigastric area and left lower quadrant. No right upper quadrant tenderness. No rebound or guarding. EXTREMITIES: No cyanosis, clubbing, or edema. LUNGS: Possibly some trace rales at the bases, otherwise clear. NEUROLOGIC: The patient is alert and oriented x3. No focal neurological deficits. No pain with left hip flexion. LABS AND DIAGNOSTICS: White blood cell count of 14.2, hematocrit of 49, platelets of 193, INR of 1.18. Sodium 136, potassium 4.6, chloride of 100, carbon dioxide 26, BUN of 13, creatinine of 0.97, glucose of 177, lactic acid of 2.8, calcium of 10.4, total bilirubin of 8.4, AST of 214, ALT of 394, alk phos of 155, CRP of 13, lipase of 14. Gallbladder ultrasound showed some gallbladder sludge. No ductal dilatation. No stones. CT of the abdomen and pelvis is pending. EKG personally reviewed shows AFib with rapid heart rate. ASSESSMENT AND PLAN: Hyperbilirubinemia and transaminitis in the setting of epigastric and left lower quadrant abdominal pain in a 71-year-old man with a past medical history of hypertension, hyperlipidemia, CAD, status post SC, AFib on Eliquis, and systolic CHF with a reported ejection fraction of 7% to 10% on last echo. 1. Abdominal pain, transaminitis, hyperbilirubinemia. The patient's ultrasound is relatively unremarkable aside from some sludge. As noted above, CT of the abdomen and pelvis is pending. The patient does have a mild leukocytosis; however, this has been present for the past month and has been relatively unchanged. Not convinced this is cholangitis as the patient has been afebrile; however, will continue the Zosyn for now that he received in the emergency department to cover in case this is the case. We will follow up with the patient's CT scan and likely contact GI to consult to see if they feel any intervention is needed. The patient's pain is not in an area that would indicate a right upper quadrant pathology. We will also check a hepatitis panel and iron, a TIBC, and a transferrin saturation, recheck the patient's lactic acid. She has received 1 L bolus in the emergency department. We will continue on the low maintenance fluids for now, so I am unsure how much p.o. intake the patient will have. 2. Atrial fibrillation. The patient is tachycardic currently and hypertensive. We will give him a dose of IV labetalol and continue his home metoprolol. The patient did not stop taking his Eliquis after the previous hospitalization as instructed; however, his hematocrit has remained stable. We will continue his home Eliquis for now. 3. Hypertension. As noted above, the patient is currently hypertensive. Ordered a one-time dose of labetalol. Continue his home lisinopril and metoprolol. 4. Hyperlipidemia. The patient reports he has not been taking his statin at home in the setting of his transaminitis. We will continue to hold this for now. 5. Chronic systolic CHF. Apparently, his ejection fraction is 7% to 10%, which was lasted noted on a 2014 ROSA M. We will try to obtain more recent records from the patient's almond blancher, Dr. Gerardo. For now, we will continue metoprolol, lisinopril. We will hold the patient's Lasix for now. Can reevaluate his fluid status in the morning. 6. DVT prophylaxis. Eliquis. 7. Code status. The patient is a full code. TIME SPENT: Total time spent on this admission 50 minutes, with over half the time spent with the patient in counseling and coordinating care. CC: Dr. Rudolph at [facility]* [id number]/[facility] #: [id number] EAN
[2016-08-23 04:51] LABS: Hematocrit 38 % (42-52); Hemoglobin 12.6 g/dl (14.0-18.0); Mean Corpuscular HGB Conc 33 g/dl (31-36); Mean Corpuscular Hemoglobin 27 pg (27-31); Mean Corpuscular Volume 82 fL (80-94); Mean Platelet Volume 9 um3 (7.4-10.4); Red Blood Count 4.68 10^6/ul (4.0-5.4); Red Cell Distribution Width 15 % (10.5-15)
[2016-08-23 05:02] LABS: BUN/Creatinine Ratio 11.2 (8-20); Calcium 8.9 mg/dL (8.6-10.3); EGFR Non-African American 84.8 (>60); Globulin 3.1 g/dL (2-4); Potassium 3.3 mmol/L (3.5-5.0); Total Bilirubin 7.6 mg/dL (0.2-1.0); Total Protein 6.1 g/dL (6.4-8.9)
[2016-08-23] MEDS: Heparin VIAL(*) 5000 UNITS/ML VIAL (FIVE THOUSAND) SUBCUT SCH (06:18)
[2016-08-23] MEDS: Piperac/Tazob 3.375 gm in NS* 3.375 GM/100 ML BAG IVPB SCH ×3 (06:18→21:45)
[2016-08-23] MEDS: Metoprolol Succinate XL TAB* 25 MG PO SCH (08:41)
[2016-08-23] MEDS: Senna TAB PO SCH (08:42)
[2016-08-23] MEDS: Lisinopril TAB* 5 MG PO SCH (08:42)
[2016-08-23] MEDS ORDERED: Furosemide TAB* 40 MG PO SCH (09:00)
--- NOTE | 2016-08-23 11:28 | RAD ---
Indication: Elevated liver enzymes, abdominal pain. Axial T2, coronal T2, MRCP and multiple maximum intensity projection images of the common duct was performed. The gallbladder is elongated and somewhat tortuous. There are multiple filling defects present consistent with cholelithiasis. There is suggestion of a filling defect in the most distal common bile duct measuring approximately 5 mm. The common duct measures up to 9 mm. No intrahepatic ductal dilatation is noted. Pancreatic duct is not dilated. IMPRESSION: Filling defect in the common duct may represent a common duct stone measuring 5 mm. A tortuous gallbladder is noted. There is likely sludge within the gallbladder.
--- NOTE | 2016-08-23 12:03 | PN ---
Hospitalist Progress Note Recent echocardiagram (01/2016) and recent cardiology [place] [facility] [place] now in the patient's chart. EF was 50-55%.
[2016-08-23] MEDS ORDERED: Indomethacin SUPP(NF) 50 MG SUP PR ONE (14:55)
[2016-08-23] MEDS ORDERED: Succinylcholine* 20 MG/ML 10 ML VIAL ONE (15:07)
[2016-08-23] MEDS ORDERED: fentaNYL* 50 MCG/ML 2 ML VIAL (100 MCG VIAL) ONE ×2 (15:07→15:44)
[2016-08-23] MEDS ORDERED: Midazolam* 1 MG/ML 2 ML VIAL (2 MG) ONE (15:07)
[2016-08-23] MEDS ORDERED: Lidocaine 2% MPF* 2 ML VIAL ONE (15:07)
[2016-08-23] MEDS ORDERED: Propofol* 10 MG/ML 20 ML BTL IV PUSH ONE (15:07)
--- NOTE | 2016-08-23 15:13 | PN ---
Subjective Date of Service: 08/23/16 Interval History: Patient seen this morning and again in the afternoon. He states that his pain has not returned since last night. Explained results of MRCP to the patient and he understands he will be going for procedure this afternoon. Family History: Unchanged from Admission Social History: Unchanged from Admission Past Medical History: Unchanged from Admission Objective Active Medications: Piperacillin Sod/Tazobactam Sod (Zosyn 3.375 Gm In Ns Premix*) 3.375 gm in 100 mls @ 25 mls/hr IVPB Q8H [facility] Last Admin: 08/23/16 13:37 Dose: 25 mls/hr Sodium Chloride (Ns 0.9% 1000 Ml*) 1,000 mls @ 75 mls/hr IV PER RATE [facility] Last Admin: 08/22/16 22:06 Dose: 75 mls/hr Labetalol HCl (Trandate Iv*) 10 mg IV PUSH Q6H PRN PRN Reason: BLOOD PRESSURE Lisinopril (Prinivil Tab*) 5 mg PO DAILY [facility] Last Admin: 08/23/16 08:42 Dose: 5 mg Metoprolol Succinate (Toprol Xl Tab*) 25 mg PO DAILY [facility] Last Admin: 08/23/16 08:41 Dose: 25 mg Morphine Sulfate (Morphine Inj (Syringe)*) 2 mg IV Q4H PRN PRN Reason: PAIN Last Admin: 08/22/16 22:01 Dose: 2 mg Pneumococcal Polyvalent Vaccine (Pneumococcal Vac Polyvalent*) 0.5 ml IM .ONCE ONE Stop: 08/24/16 09:01 Senna (Senokot Tab*) 1 tab PO DAILY [facility] Last Admin: 08/23/16 08:42 Dose: 1 tab Vital Signs 08/22/16 08/22/16 08/22/16 17:00 18:03 19:00 Temperature Pulse Rate 102 106 102 Respiratory 25 18 Rate Blood Pressure (mmHg) O2 Sat by Pulse 98 95 95 Oximetry 08/22/16 08/22/16 08/22/16 19:30 20:00 20:22 Temperature 98.4 F Pulse Rate 104 104 Respiratory 17 18 16 Rate Blood Pressure 153/107 152/92 (mmHg) O2 Sat by Pulse 97 97 Oximetry 08/23/16 08/23/16 08/23/16 00:20 04:03 07:35 Temperature 97.7 F 98.3 F 99.0 F Pulse Rate 92 80 87 Respiratory 20 20 16 Rate Blood Pressure 96/58 98/61 109/61 (mmHg) O2 Sat by Pulse 97 98 96 Oximetry 08/23/16 08/23/16 08:00 11:01 Temperature 99.1 F Pulse Rate 82 Respiratory 18 16 Rate Blood Pressure 121/68 (mmHg) O2 Sat by Pulse 97 Oximetry Oxygen Devices in Use Now: None Appearance: Elderly, belarusian M, laying in bed in NAD Eyes: - - Mild scleral icterus Ears/Nose/Mouth/Throat: Mucous Membranes Moist Neck: NL Appearance and Movements; NL JVP Respiratory: Symmetrical Chest Expansion and Respiratory Effort, Clear to Auscultation Cardiovascular: - - IRIR, no m/g/r Abdominal: - - Soft, mild distension, non-tender, BS+ Lymphatic: No Cervical Adenopathy Extremities: No Edema Skin: No Rash or Ulcers Neurological: Alert and Oriented x 3 Result Diagrams: 08/23/16 04:23 08/23/16 04:23 Microbiology and Other Data: Microbiology 08/22/16 19:59 Urine Culture - Final Urine No Growth (<1,000 CFU/mL) Assess/Plan/Problems-Billing Assessment: Choledocholithiasis, obstructive jaundice in a 71 yo M with hx of chronic systolic CHF (last EF 50-55%), Afib on eliquis, HTN, CAD - Patient Problems (1) Choledocholithiasis Current Visit: Yes Comment: obstructive jaundice. No evidence of cholecystitis. MRCP shows stone in CBD. Dr. Beltran to take patient for ERCP today. LFTs trending down (2) Atrial fibrillation Current Visit: Yes Comment: Rates better controlled. Continue metoprolol. Eliquis on hold for procedure (3) HTN (hypertension) Current Visit: Yes Comment: Continue home Lisinopril and Metoprolol (4) Chronic systolic (congestive) heart failure Current Visit: Yes Comment: Last EF 50-55% on January 2016 echo. Continue metoprolol and lisinopril. Holding Lasix for now. (5) DVT prophylaxis Current Visit: Yes Comment: Recevied heparin this AM, will continue tonight vs restarting Eliquis Status and Disposition: Potential d/c 08/24
[2016-08-23] MEDS ORDERED: Dexamethasone IV* 4 MG/ML 1 ML (4 MG) ONE (15:42)
[2016-08-23] MEDS ORDERED: EPHEDrine (Pressors)* 50 MG/ML VIAL ONE (16:02)
[2016-08-23] MEDS ORDERED: diPHENhydraMINE IV* 50 MG/ML 1 ml VIAL (BENADRYL) IV PRN (16:51)
[2016-08-23] MEDS ORDERED: fentaNYL* 50 MCG/ML 2 ML VIAL (100 MCG VIAL) IV PRN (16:51)
[2016-08-23] MEDS ORDERED: oxyCODONE TAB* 5 MG TAB PO PRN (16:51)
--- NOTE | 2016-08-23 18:14 | RAD ---
INDICATION: Common bile duct stone. COMPARISON: There are no prior studies available for comparison. TECHNIQUE: An ERCP exam was performed by Dr. Beltran. Multiple spot films of the right upper quadrant were obtained. Approximately 30 minutes of intermittent fluoroscopic guidance was provided during the exam. FINDINGS: There is opacification of the common bile and hepatic ducts as well as the cystic duct, gallbladder and multiple intrahepatic radicles. Subsequently there is passage of a balloon catheter over guidewire. There appears to be normal drainage of contrast on the last set of images. There appears to be a filling defect within the gallbladder suggestive of calculi. During the exam there is also faint visualization of the pancreatic duct which appear nondistended. IMPRESSION: ERCP CONTROL FILMS. CPT II Codes: 6045F
[2016-08-23] MEDS: NS 0.9% 1000 ML* 1,000 ML IV SCH (18:58)
--- NOTE | 2016-08-23 19:10 | CONS ---
GASTROENTEROLOGY CONSULT: DATE: CONSULTING PHYSICIANS: Kevin Morales, hospitalist; Monique Rudolph, primary. REASON FOR CONSULT: Rising liver function tests in a man with upper abdominal pain. HISTORY OF PRESENT ILLNESS: This 71-year-old man originally from [facility] developed abdominal pain on Monday. He was seen and his labs showed a mild abnormality in LFTs and he was felt to most likely have gastroenteritis and was sent home. Pain fluctuated and worsened, he came back to the emergency room and his bilirubin was found to be 8.4 and ALT 394. He was afebrile though his white count was 14 on admission, 08/22/16. He is therefore covered for cholangitis with Zosyn. Right upper quadrant ultrasound did not show any definite stones. CT scan likewise did not show any stones or pancreatitis though the gallbladder is felt to be somewhat distended. Since admission, his pain has resolved. He has remained afebrile. MRCP shows filling defect in the common duct. PAST MEDICAL HISTORY: 1. Cardiomyopathy - felt to be nonischemic and followed by Dr. Gerardo. He had a normal echocardiogram this past summer. 2. Atrial fibrillation - Eliquis. 3. Chronic anticoagulation - recent psoas hematoma, Eliquis will be on hold for unknown duration. 4. Hypertension. 5. History of hepatitis - the chronic hepatitis profile, 0/, is all negative though this was listed on his problem list as an outpatient. SOCIAL HISTORY: He is . He came from [facility] and adopted the name Pastor legally sometime while after arriving here. He has a daughter and [id number]. REVIEW OF SYSTEMS: No history of fever, syncope, hemoptysis, productive cough, weight loss, bowel changes. Colonoscopy status is unknown at this time. In the room assisting with the history was his , daughter, and [id number] , the daughter's spouse. He has never had any abdominal surgery. PHYSICAL EXAM: He is a comfortable male, lying flat, in no distress, smiling. Pulse 90, blood pressure 96/58, temp normal by palpation. HEENT exam shows icterus. He has no adenopathy. His lungs are clear. Heart sounds are __ ___. The abdomen is rounded, symmetric, quite soft, nontender, and he tolerates probing very well. There is no edema. DIAGNOSTIC STUDIES: Radiology review - MRCP shows a small 4- to 5-mm filling defect. CT from yesterday does not show that. There are no calcified stones in the biliary system. Pancreatic contours are regular with no stranding. Pancreatic duct is small. IMPRESSION: This 71-year-old man presents with abdominal pain, a rise in LFTs consistent with obstruction of common duct and with the pain being present and the abruptness of the symptoms, stone disease is most likely. While not detected on the ultrasound or CT, it appears to be confirmed by the MRCP and single small stone certainly could have evaded the earlier studies. Since his cardiac status seems to have been good in recent months and there is no sign of problems during this admission, ERCP will be planned. He is off Eliquis for the moment, will certainly need to be off anticoagulation for 3 days if he has a sphincterotomy. All of the above referenced with family members who were in the room as a detailed diagram about ERCP was reviewed and all questions answered. [id number]/[facility] #: [id number] EAN
[2016-08-23] MEDS ORDERED: Heparin VIAL(*) 5000 UNITS/ML VIAL (FIVE THOUSAND) SUBCUT SCH (22:00)
[2016-08-24] MEDS: Piperac/Tazob 3.375 gm in NS* 3.375 GM/100 ML BAG IVPB SCH ×2 (05:21→14:41)
[2016-08-24 06:30] LABS: Hematocrit 38 % (42-52); Hemoglobin 12.5 g/dl (14.0-18.0); Mean Corpuscular HGB Conc 33 g/dl (31-36); Mean Corpuscular Hemoglobin 27 pg (27-31); Mean Corpuscular Volume 82 fL (80-94); Mean Platelet Volume 10 um3 (7.4-10.4); Red Blood Count 4.69 10^6/ul (4.0-5.4); Red Cell Distribution Width 16 % (10.5-15); White Blood Count 10.9 10^3/ul (3.5-10.8)
[2016-08-24 06:41] LABS: Albumin 3.2 g/dL (3.2-5.2); BUN/Creatinine Ratio 15.1 (8-20); EGFR African American 103.6 (>60); EGFR Non-African American 80.6 (>60); Globulin 3.3 g/dL (2-4); Potassium 3.7 mmol/L (3.5-5.0); Total Bilirubin 6.8 mg/dL (0.2-1.0); Total Protein 6.5 g/dL (6.4-8.9)
--- NOTE | 2016-08-24 08:21 | PRO ---
DATE: 08/23/16 - ROOM #[id number] REFERRING PHYSICIANS: Monique Rudolph; Malcom Gerardo * PROCEDURE: ERCP with sphincterotomy and removal of common bile duct stone. INDICATIONS: This 71-year-old man presented with abdominal pain and a bilirubin of 2. Two days later, the bilirubin had gone to 8. He had not been febrile. Nonetheless, he showed some clinical signs of infection and was placed on Zosyn. Eliquis was stopped. Ultrasound had not shown definitive stones and CT scan had not either. MRCP, however, suggested a 5-mm distal common duct stone. There was some indistinctness to all the images of the lower one-third of the common duct. Informed consent was obtained from the patient and his and two daughters-in - law and his daughter. ENDOSCOPIST: Dr. Beltrna. ANESTHESIOLOGIST : Dr. Berg. FINDINGS: He is a short male, in no distress. He is now intubated and ventilated. ERCP: Esophagus - easily entered and traversed, and normal to 38 cm. Stomach - 70% views are normal, though, during the exit phase, there was some abrasion and bruising to the high gastric fundus from difficulty traversing the pylorus. Initial attempts to traverse the pylorus were unsuccessful in the traditional 20 % to 30% elevation position. The patient was then raised to 60% to 70% (of the vertical) and, in this position, the pylorus was traversed and the scope easily entered the descending duodenum. Duodenum - the bulb and second through fourth portions appeared normal. There were duodenal diverticula around the papilla of moderate size on the left and very small and shallow on the right, about one-fourth the size of the one on the left. Papilla - average size, disgorging bile and some granular debris upon entry. It then closed up. Initial cannulation attempts sweeping up to an 11 and noon position did not get a free cannulation. About the third attempt, entered a ductal structure and the guidewire went up and initially it was difficult to discern where it was going. A small flash of dye outlined a normal pancreatic duct. The cannula was withdrawn. Two to four further attempts to get a cannulation did not enter a duct. The guidewire was then extruded so low and, taking a deep and then bowed shallow approach to the papilla, the guidewire went straight up towards the liver and was clear it had cannulated the common duct. The sphincterotome followed. Injection showed filling material in the lower half of the bile duct. It was not clearly a stone, but there was a large amount. It was unclear whether this was sludge or potentially old clot. Sphincterotomy was done at a noon orientation, 12 to 13 mm; and, at about 5 mm, there was discharge of a copious flood of very dark bile and then granular debris that had somewhat of an army-green color. Sphincterotome cut was extended somewhat and there was more material that came through. No ehnri bleeding occurred. A 12-mm balloon was inserted in the common hepatic duct area and then swept down and did come through the sphincterotomy at 12 mm. A stone was then seen. It was mildly oval and black, and seemed a good fit to the MRCP finding. One more balloon sweep was made and the common duct had clearly drained. The procedure was terminated. IMPRESSION: 1. Duodenal diverticula. 2. Otherwise normal upper GI tract anatomy. 3. Status post sphincterotomy and balloon extraction of common bile duct black stone and sludge - the patient should remain on antibiotics one more day, and clearly n.p.o. until morning given the pancreatic duct opacification. [id number]/[facility] #: [id number] MTDD
[2016-08-24] MEDS ORDERED: Pneumococcal *Vac Polyvalent 0.5 ML VIAL IM ONE (09:00)
[2016-08-24] MEDS: Metoprolol Succinate XL TAB* 25 MG PO SCH (10:46)
[2016-08-24] MEDS: Senna TAB PO SCH (10:46)
[2016-08-24] MEDS: Lisinopril TAB* 5 MG PO SCH (10:46)
--- NOTE | 2016-08-24 14:19 | DCNOTE ---
Patient seen this afternoon. Reports feeling well. No pain. Tolerated diet. On exam, IRIR, no m/g/r, abd soft, NTND, BS+ S/P ERCP. Plan to discharge home as patient tolerating diet. LFTs improving. F/ U with GI as outpatient.
[2016-08-24 15:24] VITALS: BP 92/58
--- NOTE | 2016-08-25 09:02 | DS ---
CC: Dr. Rudolph; Dr. Beltran, GI. DISCHARGE SUMMARY: DATE OF ADMISSION: 08/22/16. DATE OF DISCHARGE: 08/24/16. PCP: Dr. Rudolph. PRINCIPAL DISCHARGE DIAGNOSES: 1. Choledocholithiasis. 2. Obstructive jaundice. 3. Transaminitis. 4. Abdominal pain. SECONDARY DIAGNOSES: 1. Atrial fibrillation on Eliquis. 2. Hypertension. 3. Hyperlipidemia. 4. Coronary artery disease. 5. Status post myocardial infarction. 6. Congestive heart failure with last reported ejection fraction of 50-55% on the January 2016 echocar diogram. DISCHARGE MEDICATION REGIMEN: 1. Lisinopril 5 mg by mouth daily. 2. Eliquis 5 mg by mouth 2 times daily, to start again on 08/27/16. 3. Atorvastatin 40 mg by mouth daily. 4. Toprol XL 25 mg by mouth daily. 5. Lasix 20 mg by mouth daily. 6. Tessalon Perles 100 mg by mouth 3 times daily as needed for cough. 7. Senna one tablet by mouth daily. STUDIES DURING HOSPITALIZATION: 1. Gallbladder ultrasound. Impression: Gallbladder sludge otherwi se negative. 2. CT abdomen and pelvis with contrast. Impression: Distended gallbladder without wall thickening or inflammatory change. Hematoma in the left psoas muscle, decreased in size from the prior exam. 3. MRCP. Impression: Filling defect in the common duct may represent a common duct stone measurin g 5 mm of tortuous gallbladder as noted. There is likely sludge within the gallbladder. 4. ERCP. Impression: Status post sphincterotomy and balloon extraction of common bile duct stone and sludge. HISTORY OF PRESENT ILLNESS AND HOSPITAL SUMMARY: Please see the full history and physical done by ag arora on 08/22/16 for full details. Briefly, Mr. Leonard is a 71-year- old male with the past medical histo ry as above who was recently hospitalized for the left psoas hematoma who presented to the hospital with abdominal pain, nausea and vomiting. The patient initially presented to the ED, was discharged home with a diagnosis of possible gastroenteritis. He came back to the hospital after vomiting mul tiple times at [facility]. His labs showed an obstructive pattern with elevated bilirubin, reji vated AST, ALT and alk phos. Gallbladder ultrasound and CT were relatively unremarkable. Dr. Marisela garcia of Gastroenterology was consulted and recommended an MRCP which was done, which showed a 5 mm sto ne in the common bile duct. The patient was taken for an ERCP with sphincterotomy and successful re trieval of the stone with a significant amount of bile and sludge that was able to be drained. The patient remained pain free after the procedure, and his labs were improving daily. The patient was instructed to hold his Eliquis which can be restarted on 08/27/16. He will have a re peat CMP ordered as an outpatient. He will follow up as an outpatient with Dr. Rudolph and with Dr. Beltran. He will be discharged home on a low-fat diet. The remainder of his home medications w ere unchanged. TIME SPENT: Total time spent on this discharge is 45 minutes This is just a summary of hospitalization. Please see the full medical record for further details. [id number]/[facility] #: [id number]
== END 2016-08-24 16:30 | disposition home or self-care (01) | DRG 445 ==
LOC: ED 11:46 → MEDTELE 16:47
PROVIDERS: ADMIT Hospitalist; ATTEND Hospitalist
PROC: 0FC98ZZ Extirpation of Matter from Common Bile Duct, Via Natural or Artificial Opening Endoscopic (ICD-10-PCS; principal; 2016-08-23 15:00)
PROC: 3E0234Z Introduction of Serum, Toxoid and Vaccine into Muscle, Percutaneous Approach (ICD-10-PCS; 2016-08-24)
DX: K80.51 Calculus of bile duct without cholangitis or cholecystitis with obstruction (principal); I50.22 Chronic systolic (congestive) heart failure; I11.0 Hypertensive heart disease with heart failure; I48.91 Unspecified atrial fibrillation; I25.10 Atherosclerotic heart disease of native coronary artery without angina pectoris; E78.5 Hyperlipidemia, unspecified; I25.5 Ischemic cardiomyopathy; K57.10 Diverticulosis of small intestine without perforation or abscess without bleeding; R74.0 Nonspecific elevation of levels of transaminase and lactic acid dehydrogenase [LDH]; E78.00 Pure hypercholesterolemia, unspecified; I25.2 Old myocardial infarction; Z82.49 Family history of ischemic heart disease and other diseases of the circulatory system; Z23 Encounter for immunization; Z79.01 Long term (current) use of anticoagulants
CPT/HCPCS: 36415; 74177; 74181; 74328; 76376; 76705; 80053; 80074; 81003; 81015; 83540; 83550; 83605; 83690; 83735; 84466; 84484; 85025; 85610; 86140; 87086; 90732; 93005; A9270-GY; C1769; J0330; J1100; J1644; J2250; J2270; J2405; J2543; J2704; J3010; Q9967

== ENCOUNTER 2018-11-19 04:36 | Inpatient (IN) | payer MEDICARE, OTHER ==
[2018-11-19] MEDS ORDERED: NS 0.9% 1000 ML** 2,000 ML IV ONE (04:43)
[2018-11-19] MEDS ORDERED: fentaNYL* 50 MCG/ML 2 ML VIAL (100 MCG VIAL) IV ONE (04:43)
--- NOTE | 2018-11-19 04:44 | ED ---
Abdominal Pain/Male - HPI Summary HPI Summary: This patient is a 73 year old M brought in by ambulance to [facility] with a chief complaint of LLQ abd pain that began at 0100. The patient rates the pain 9/10 in severity. Symptoms aggravated by nothing. Symptoms alleviated by nothing. Patient denies vomiting and diarrhea. Review of the old record includes CT abdomen done in 2018, and at that time the aorta is normal in caliber. - History of Current Complaint Stated Complaint: ABD PAIN PER EMS Time Seen by Provider: 11/19/18 04:37 Hx Obtained From: Patient Onset/Duration: Sudden Onset, Lasting Hours, Still Present Timing: Constant Location: Discrete At: LLQ Aggravating Factor(s): Nothing Alleviating Factor(s): Nothing Associated Signs And Symptoms: Negative: Vomiting, Diarrhea - Allergies/Home Medications Allergies/Adverse Reactions: Allergies Allergy/AdvReac Type Severity Reaction Status Date / Time No Known Allergies Allergy Verified 11/19/18 04:44 Home Medications: Home Medications Omeprazole 1 tab PO DAILY 11/19/18 [History Confirmed 11/19/18] PMH/Surg Hx/FS Hx/Imm Hx Previously Healthy: No Endocrine/Hematology History: Denies: Hx Diabetes Cardiovascular History: Reports: Hx Congestive Heart Failure, Hx Hypercholesterolemia, Hx Hypertension, Hx Myocardial Infarction Denies: Hx Pacemaker/ICD History: Denies: Hx Dialysis, Hx Renal Disease Sensory History: Denies: Hx Hearing Aid Psychiatric History: Denies: Hx Panic Disorder - Surgical History Surgery Procedure, Year, and Place: RT GROIN CATHETERIZATION/CARDIAC WORKUP - Immunization History Date of Tetanus Vaccine: unk Date of Influenza Vaccine: fall 2015 - Family History Known Family History: Positive: Hypertension Negative: Cardiac Disease, Diabetes - Social History Occupation: Retired Lives: With Family Alcohol Use: None Hx Substance Use: No Substance Use Type: Reports: None Hx Tobacco Use: No Smoking Status (MU): Never Smoked Tobacco Review of Systems Negative: Blurred Vision Positive: Abdominal Pain. Negative: Vomiting, Diarrhea All Other Systems Reviewed And Are Negative: Yes Physical Exam - Summary Physical Exam Summary: Appearance: Well-appearing, Well-nourished, appears to be in pain Skin: Warm, dry, no obvious rash Eyes: sclera anicteric, no conjunctival pallor ENT: mucous membranes moist, pharynx appears normal Neck: Supple, nontender Respiratory: Clear to auscultation, no signs of respiratory distress Cardiovascular: Normal S1, S2. No murmurs. Normal distal pulses in tibial and radial bilaterally. Abdomen: Soft, Somewhat diffuse tenderness with some guarding, worse on the left. Normal active bowel sounds present Musculoskeletal: Normal, Strength/ROM Intact Neurological: A&Ox3, awake and alert, mentation is normal, speech is fluent and appropriate Psychiatric: affect is normal, does not appear anxious or depressed Triage Information Reviewed: Yes Vital Signs Reviewed: Yes Diagnostics - Laboratory Result Diagrams: 11/19/18 05:02 11/19/18 05:02 Lab Statement: Any lab studies that have been ordered have been reviewed, and results considered in the medical decision making process. - EKG 0446 Cardiac Rate: Tachycardia EKG Rhythm: Atrial Fibrillation - 103 BPM Summary of EKG Findings: An EKG taken at 0446 reveals Afib at 103 BPM with RVR otherwise unremarkable. Abdominal Pain Male Course/Dx - Course Course Of Treatment: This patient is a 73 year old M brought in by ambulance to [facility] with a chief complaint of LLQ abd pain that began at 0100. Physical Exam Findings: Appears to be in pain. Somewhat diffuse tenderness with some guarding , worse on the left. An EKG taken at 0446 reveals Afib at 103 BPM with RVR otherwise unremarkable. Bloodwork obtained. In the ED course the patient was given diltiazem, fentanyl, contrast, and fluids. Patient will be signed out to Dr. Christopher upon shift change pending CT results and disposition. The patient is agreeable with this plan. - Diagnoses Provider Diagnoses: Sepsis, Acute respiratory failure, Fluid overload, Cholangitis Discharge - Sign-Out/Discharge Documenting (check all that apply): Sign-Out Patient Signing out patient TO: Ifeanyi Christopher - Upon shift change pending CT results and disposition Patient Received Moderate/Deep Sedation with Procedure: No - Discharge Plan Condition: Guarded Disposition: ADMITTED TO [facility] - Billing Disposition and Condition Condition: GUARDED Disposition: Admitted to [facility] - Attestation Statements Document Initiated by Scribe: Yes Documenting Scribe: Ronda Ruth Provider For Whom Scribe is Documenting (Include Credential): Dr. Ruy Pimentel MD Scribe Attestation: IRonda, scribed for Dr. Ruy Pimentel MD on 11/20/18 at 0058. Scribe Documentation Reviewed: Yes Provider Attestation: The documentation as recorded by the scribe, Ronda Ruth accurately reflects the service I personally performed and the decisions made by me, Dr. Ruy Pimentel MD Status of Scribe Document: Viewed
[2018-11-19 05:25] LABS: ABS Basophils 0 10^3/ul (0-0.2); ABS Eosinophils 0.2 10^3/ul (0-0.6); ABS Lymphocytes 1.4 10^3/ul (1.0-4.8); ABS Neutrophils 14.8 10^3/ul (1.5-7.7); ABS Nucleated RBC 0 10^3/ul; Eosinophil % 0.9 %; Hematocrit 45 % (36-46); Mean Corpuscular HGB Conc 31 g/dL (31-36); Mean Corpuscular Hemoglobin 25 pg (27-31); Mean Corpuscular Volume 81 fL (80-94); Mean Platelet Volume 9.6 fL (7.4-10.4); Nucleated Red Blood Cells % 0.1; Platelet Count 213 10^3/uL (150-450); Red Blood Count 5.54 10^6 /uL (4.18-5.48); Red Cell Distribution Width 15 % (10.5-15); White Blood Count 17.4 10^3/uL (3.5-10.8)
[2018-11-19 05:30] LABS: Albumin 4.4 g/dL (3.2-5.2); Calcium 10.1 mg/dL (8.6-10.3); Potassium 4.6 mmol/L (3.5-5.0); Total Bilirubin 2.1 mg/dL (0.2-1.0)
[2018-11-19 05:37] LABS: Albumin/Globulin Ratio 1.1 (1-3); C Reactive Protein 7.96 mg/L (<8.01); EGFR African American 89.1 (>60); EGFR Non-African American 73.7 (>60); Total Protein 8.4 g/dL (6.4-8.9)
[2018-11-19] MEDS ORDERED: Iohexol 350* (CONTRAST) 500 ML MDV IV ONE (05:43)
[2018-11-19] MEDS ORDERED: Diltiazem IV push/loading dose 5 MG/ML 5 ML vial (25 mg) IV SLOW PU ONE ×2 (06:39→08:36)
[2018-11-19] MEDS ORDERED: Acetaminophen TAB* 325 MG ONE (07:24)
--- NOTE | 2018-11-19 07:26 | ED ---
Progress - Progress Note Progress Note: The pt is a signout from Dr. Pimentel pending CTA abdomen results. - Results/Orders Results/Orders: Abd/pelv CTA No evidence of arterial stenosis or occlusion. No evidence of bowel wall thickening or pneumatosis. ED physician has reviewed this report. Gallbladder US 1. FATTY INFILTRATION OF THE LIVER. 2. POSITIVE SONOGRAPHIC MAYS SIGN WITH GALLBLADDER WALL THICKENING, WITHOUT PERICHOLECYSTIC FLUID OR APPRECIABLE STONE. THOUGH THE IMAGING FEATURES ARE INDETERMINATE FOR ACUTE CHOLECYSTITIS, THE PRESENCE OF A SONOGRAPHIC MAYS SIGN IS CONCERNING FOR ACALCULOUS CHOLECYSTITIS. 3. THE COMMON DUCT IS DILATED UP TO 1 CM. THERE IS NO APPRECIABLE INTRAHEPATIC BILIARY DILATATION. ED physician has reviewed this report. CXR Cardiomegaly with pulmonary interstitial edema. ED physician has reviewed this report. Re-Evaluation - Re-Evaluation 1st re-eval Re-Evaluation Time: 07:20 Change: Unchanged Comment: Pt's temperature was up and the pt had an SaO2 in the 80s on room air. CXR and Tylenol ordered. 2nd re-eval Re-Evaluation Time: 07:45 Change: Unchanged Comment: Pt's pain is presently exacerbated. 3rd re-eval Re-Evaluation Time: 08:30 Change: Unchanged Comment: Pt is back in rapid AFib and he is wheezing. CXR appears nml. 4th re-eval Re-Evaluation Time: 08:51 Change: Unchanged Comment: Pt now has rales and wheezes upon exam. Respiratory at bedside. Course/Dx - Course Course Of Treatment: Pt is a signout from Dr. Pimentel pending CTA results. As of 07, the pt states his discomfort is back. It was noted that his temperature was up and his SaO2 was low on room air, so Tylenol, US of the gallbladder, and a CXR was ordered. On exam, the pt's abd was distended and it was mildly tender in the upper abd. Abd/pelv CTA shows: No evidence of arterial stenosis or occlusion. No evidence of bowel wall thickening or pneumatosis. As of 0830, the pt is wheezing and back in rapid AFib. Upon exam, there are no rales in his lungs. I spoke with hospitalist Dr. Castillo at 0845 about the pt's current condition, and we discussed hospitalist vs. rn family practice management for the pt. As of 0850, the pt has wheezes and rales on exam. He states he uses a nebulizer and Albuterol at home, however medical records cannot confirm this. The pt has no hx of COPD. There is a language barrier with the pt, so there may be some limit to hx provided. I suspect the present illness is most likely fluid overload from sepsis treatment. CXR shows cardiomegaly with pulmonary interstitial edema. Gallbladder US shows: 1. FATTY INFILTRATION OF THE LIVER. 2. POSITIVE SONOGRAPHIC MAYS SIGN WITH GALLBLADDER WALL THICKENING, WITHOUT PERICHOLECYSTIC FLUID OR APPRECIABLE STONE. THOUGH THE IMAGING FEATURES ARE INDETERMINATE FOR ACUTE CHOLECYSTITIS, THE PRESENCE OF A SONOGRAPHIC MAYS SIGN IS CONCERNING FOR ACALCULOUS CHOLECYSTITIS. 3. THE COMMON DUCT IS DILATED UP TO 1 CM. THERE IS NO APPRECIABLE INTRAHEPATIC BILIARY DILATATION. I paged surgery at [address] Castillo speak with Dr. Leon as I was in a room with a patient. They will be accepting the pt to [facility]. - Diagnoses Provider Diagnoses: Sepsis, Acute respiratory failure, Fluid overload, Cholangitis - Critical Care Time Critical Care Time: 30-74 min - 60min Discharge - Sign-Out/Discharge Documenting (check all that apply): Patient Departure, Receiving Sign-Out Receiving patient FROM: Ruy Pimentel - Discharge Plan Disposition: ADMITTED TO [facility] - Attestation Statements Document Initiated by Scribe: Yes Documenting Scribe: Tri Flaherty Provider For Whom Scribe is Documenting (Include Credential): Ifeanyi Christopher MD. Scribe Attestation: Tri Lane, scribed for Ifeanyi Christopher MD. on 11/19/18 at 1013. Status of Scribe Document: Ready Consult Consult: [id number] - I spoke with Dr. Castillo to discuss hospitalist vs. rn family practice management for the pt.
[2018-11-19] MEDS ORDERED: Piperacillin/Tazobac ADVAN(*) 3.375 GM in NS 0.9% 100 ML* 100 ML IVPB ONE ×2 (07:27→09:33)
[2018-11-19] MEDS ORDERED: NS 0.9% 500 ML* 500 ML IV ONE (07:27)
[2018-11-19] MEDS ORDERED: Morphine 4 MG/ML VIAL (1 ml) 4 MG/ML VIAL IV ONE (07:28)
[2018-11-19] MEDS ORDERED: Acetaminophen TAB* 325 MG PO ONE (07:28)
[2018-11-19] MEDS ORDERED: Ondansetron INJ* 2 MG/ML VIAL IV ONE (07:28)
[2018-11-19 08:03] LABS: Urine Appearance Clear; Urine Bacteria Absent (Absent); Urine Bilirubin Negative (Negative); Urine Blood Negative (Negative); Urine Color Yellow; Urine Glucose 2+(150 mg/dL) (Negative); Urine Ketones Trace (Negative); Urine Nitrite Negative (Negative); Urine Protein 2+(100 mg/dL) (Negative); Urine Red Blood Cell Trace(0-2/hpf) (Absent); Urine Specific Gravity 1.039 (1.010-1.030); Urine Squamous Epithelial Cell Present (Absent); Urine Urobilinogen Negative (Negative); Urine White Blood Cell Trace(0-5/hpf) (Absent)
[2018-11-19] MEDS ORDERED: methylPREDNISolone 125 MG* 2 ML VIAL IV ONE (08:36)
[2018-11-19] MEDS ORDERED: Diltiazem IV VIAL* 125 MG in NS 0.9% 100 ML* 100 ML IVPB ONE (08:37)
[2018-11-19] MEDS ORDERED: Furosemide IV* 10 MG/ML VIAL (40 MG) IV SLOW PU ONE (08:51)
[2018-11-19] MEDS ORDERED: Nitroglycerin TAB 0.4 MG* 0.4 MG TAB SL ONE (08:51)
[2018-11-19] MEDS ORDERED: Nitro 2% OINT* (Nitroglycerin) 1 INCH/PAK PAK TOPICAL ONE (08:56)
[2018-11-19] MEDS ORDERED: Ketorolac INJ* 30 MG/ML 1 ML VIAL IV PUSH ONE (09:11)
[2018-11-19] MEDS ORDERED: Ondansetron INJ* 2 MG/ML VIAL IV PRN (09:33)
[2018-11-19] MEDS ORDERED: Dextrose 50% Syringe 50 ML* 25 GM/50 ML SYRINGE IV PUSH PRN (09:39)
[2018-11-19] MEDS ORDERED: Zosyn per Pharmacy* NOTE FOLLOW UP SCH (10:00)
[2018-11-19] MEDS ORDERED: Diltiazem IV VIAL* 125 MG in NS 0.9% 100 ML* 100 ML IV SCH (10:00)
[2018-11-19] MEDS ORDERED: Norepinephrine 16MCG/ML IVPRE* 4,000 MCG/250 ML BAG IV SCH (11:00)
[2018-11-19 11:10] LABS: Troponin I 0.03 ng/mL (<0.04)
[2018-11-19] MEDS: Pantoprazole IV* 40 MG IV SCH (11:16)
[2018-11-19] MEDS: Morphine 4 MG/ML VIAL (1 ml) 4 MG/ML VIAL IV SCH ×4 (11:16→22:07)
[2018-11-19 11:46] LABS: INR 1.2 (0.82-1.09)
[2018-11-19] MEDS: Insulin LISPRO* 1 UNITS UNIT SUBCUT SCH ×2 (11:51→18:41)
--- NOTE | 2018-11-19 11:51 | HP ---
CC: Dr. Rudolph; Dr. Gerardo * HISTORY AND PHYSICAL: DATE OF ADMISSION: 11/19/18 PRIMARY CARE PROVIDER: Dr. Rudolph. INSTRUMENT AND CONTROL SERVICE PERSON: Dr. Gerardo. CHIEF COMPLAINT: Abdominal pain. HISTORY OF PRESENT ILLNESS: I am going to process this by stating that the patient's mental status currently is to the point where he is unable to provide any reliable history. According to the ER providers' note, the patient presented to the ER with complaints of left lower quadrant abdominal pain that began approximately 0100 on the day of presentation. He reported the pain to be 9/10 in severity. He told the ER provider that the pain was not made worse or better by anything. He had not been vomiting or having diarrhea. The patient now states that he is feeling somewhat better. He received morphine in the ER, however, the patient also decompensated in the ER developing fever up to 105, rapid atrial fibrillation, requiring a diltiazem drip, acute respiratory distress secondary to fluid overload, and is now on BiPAP. The patient is being admitted to the intensive care unit. PAST MEDICAL HISTORY: 1. Severe nonischemic cardiomyopathy with a last EF in July 2018 at 50 to 55 % on maximum medical therapy. 2. Atrial fibrillation. 3. Hypertension. 4. Hyperlipidemia. 5. Coronary artery disease. PAST SURGICAL HISTORY: According to old records, cardiac catheterization and ERCP. MEDICATIONS: 1. Metformin 1000 mg p.o. daily. 2. Metoprolol XL 25 mg p.o. daily. 3. Lasix 20 mg p.o. daily. 4. Lisinopril 5 mg p.o. daily. 5. Lipitor 40 mg p.o. daily. 6. Omeprazole 20 mg p.o. daily. ALLERGIES: No known drug allergies. FAMILY HISTORY: Unobtainable from the patient. SOCIAL HISTORY: According to old records, the patient does not smoke or drink alcohol. I am unable to obtain any further information. PHYSICAL EXAMINATION VITAL SIGNS: Blood pressure 175/86, pulse 87, respirations 34, temp 104.5, O2 saturation 100% on 100% FiO2 via BiPAP. HEENT: Pupils are approximately 2 mm round. Extraocular muscles are intact. Oropharynx is obscured by the BiPAP mask. I do not appreciate any submandibular , cervical, or supraclavicular adenopathy. Thyroid is not enlarged. No thyroid nodules noted. PULMONARY: The patient has coarse breath sounds in all lung gibson anteriorly and laterally. CARDIAC: Normal S1, S2. Heart rate is irregularly irregular and controlled rate. There is no lower extremity edema. ABDOMEN: Bowel sounds are present. Abdomen is moderately distended. It is somewhat firm. The patient does not appear to be guarding. MUSCULOSKELETAL: The patient does not actively move any of his limbs. During my evaluation, there is no obvious deformity. SKIN: Hot, it is dry. There are no rashes. There are reported linear streaks noted on the patient's arms and torso, however, these appear to have resolved. NEUROLOGIC: The patient's mental status is somewhat poor at this point. He is not able to carryon on conservation. Neuro exam is deferred for now. PSYCHIATRIC: The patient is lethargic and neuro status is as above. DIAGNOSTIC STUDIES/LAB DATA: WBC 17.4, hemoglobin 14.0, hematocrit 45, platelets 213. Sodium 136, potassium 4.6, chloride 104, CO2 of 22, BUN 12, creatinine 1.0, glucose 198, lactic acid 3.2, calcium 10.1, bilirubin 2.1, AST 110, ALT 76, alk phos 176, CRP 7.96, albumin 4.4, lipase 15, ABG; 7.38/38/282 on BiPAP 12/6 with 100% FiO2. Urinalysis reveals a specific gravity of 1.039, 2 + protein, trace ketones, absent bacteria, present hyaline casts. EKG is pending. CTA of abdomen and pelvis, there is scarring noted at the bilateral lung bases. There are regions of mosaic attenuation noted. No evidence of arterial stenosis or occlusion. No evidence of bowel wall thickening or pneumatosis. Gallbladder ultrasound, there is fatty infiltration of the liver. Positive sonographic Peraza sign with gallbladder wall thickening without pericholecystic fluid or appreciable stone. Though the imaging features are indeterminate for acute cholecystitis, the presence of a sonographic [place] sign is concerning for acalculous cholecystitis. The common duct is dilated up to 1 cm. There is no appreciable intrahepatic biliary dilation. Chest x-ray, there is cardiomegaly with pulmonary interstitial edema. ASSESSMENT AND PLAN: Mr. Leonard is a 73-year-old male with a history of nonischemic cardiomyopathy with most recent EF in July 2018 at 50 to 55%, type 2 diabetes, atrial fibrillation, coronary artery disease, hypertension, and hyperlipidemia, who presents to the emergency room with complaints of abdominal pain and decompensated while in the ER developing severe sepsis secondary to possible cholangitis. 1. Severe sepsis secondary to possible cholangitis. At this point, the patient by definition is severely septic. He is markedly febrile, just as I am dictating admission history and physical. Vital signs obtained within the last 15 minutes indicate the patient is now in septic shock with 2 consecutive MAPs less than 65. He has elevated lactic acid of 3.2 and elevated bilirubin. He has been tachycardic and tachypneic. The patient is being admitted to the intensive care unit. I have spoken with Dr. Higeura, who is the narrative writer today. The patient will be taken off the diltiazem drip due to now hypotension. He will be receiving Zosyn for presumed biliary/intraabdominal source of infection. His mental status and vital signs will be monitored closely. I am concerned he may require intubation due to the respiratory distress secondary to the fluid overload that occurred following the 30 mL/kg bolus. Dr. Leon and Dr. Tristan had been contacted for consultation on this patient due to concerns for cholangitis and possible acalculous cholecystitis. 2. Acute respiratory distress verging on acute respiratory failure. It appears that this occurred after the patient received 30 mL/kg bolus for his severe sepsis. The patient is requiring BiPAP at high level support. He is still breathing quite rapidly. I am suspicious he may need intubation. This has been relayed to Dr. Higuera, who will be taking over the care of this patient. 3. Nonischemic cardiomyopathy. The patient's last ejection fraction in July 2018 was acceptable at 50 to 55%. Given how acutely decompensated he became with the 30 mL/kg bolus, I have reordered a transthoracic echocardiogram to be done this morning. 4. Atrial fibrillation. The patient was in rapid atrial fibrillation initially in the ER. He required diltiazem drip. Now as he is hypotensive, this will be discontinued. His heart rate will need to be monitored closely. 5. Hypertension. The patient's blood pressure has suddenly dropped. This will need to be monitored closely. He may require vasopressors. 6. Hyperlipidemia. I am going to hold the patient's statin for now. 7. Gastroesophageal reflux disease. I will start IV Protonix. 8. Type 2 diabetes. The patient's metformin will be held. He will be placed on fingersticks q.6 hours with lispro coverage. 9. DVT prophylaxis. According to the Adult Thrombosis Prophylaxis Risk Factor Assessment Guide, the patient has a total risk factor score of 3, making him high risk. Heparin 5000 units subcutaneous q.8 hours will be advised as his DVT prophylaxis. 10. Code status is full. TIME SPENT: Seventy minutes of critical care time was spent on this admission. [id number]/[facility] #: [id number] EAN
[2018-11-19] MEDS: ZOSYN 3.375 GM Q8H per EXTENDED INFUSION IVPB SCH ×4 (13:08→22:07)
[2018-11-19] MEDS: Heparin VIAL(*) 5000 UNITS/ML VIAL (FIVE THOUSAND) SUBCUT SCH ×2 (14:14→22:07)
--- NOTE | 2018-11-19 14:52 | CONS ---
CC: [facility]; Dr. Rudolph's Office at the [facility] in [place] * CONSULTATION REPORT: DATE OF CONSULT: 11/19/18 REFERRING PROVIDER: Dr. Alicia Castillo, hospitalist. REASON FOR CONSULTATION: Abdominal pain and fever. HISTORY OF PRESENT ILLNESS: Mr. Pastor Leonard is a 73-year-old gentleman, who presented to the emergency room early this morning with a rather sudden onset of abdominal pain. The patient apparently had some poor mental status and presented to the emergency room alone and it was difficult to obtain history and the following history is obtained from the emergency room physician, Dr. Christopher, as well as Dr. Castillo, the hospitalist. According to the providers' note, the patient presented with some left lower abdominal discomfort that started at about 0100 and increased in severity. He has been having no vomiting or having diarrhea. He received some morphine in the emergency room and developed a fever to 105 in the emergency room; rapid atrial fibrillation, requiring diltiazem drip; and relative hypotension. He also required to be placed on BiPAP for his respiratory status. The patient is presently now being admitted to the intensive care unit. In the emergency room, he was noted to have a white blood cell count of 17,000 with a hemoglobin of 14. His INR was 1.2. Electrolytes, BUN and creatinine were all within normal limits. He did have a lactic acid of 3.2, which subsequently had been reduced to 2.2 with resuscitation. Also, noted was a total bilirubin of 2.1 with an AST and ALT of 110 and 76 with an alkaline phosphatase of 176, lipase was normal. He underwent a CT scan of the abdomen and pelvis. I did review these images. These show no significant acute findings. The gallbladder appeared to be unremarkable without pericholecystic fluid or gallstones. There is no wall thickening noted. This was not particularly distended. Viscera and solid organs appeared to be unremarkable. There was no free air, free fluid or abscess noted. This was also done with arterial contrast and there was no evidence of arterial stenosis or occlusion. This was just ischemia. An ultrasound was obtained, which showed mildly thickened gallbladder wall, but was not particularly distended. There was no pericholecystic fluid. Common bile duct measured about 1 cm. His history is remarkable for having undergone an ERCP in [address] Beltran. This was done after an MRCP and it showed a distal common bile duct stone. Dr. Beltran did proceed with a stone retrieval and sphincterotomy and per the records, the patient was discharged home. I see no further follow up with Surgery or Surgical consultation as an inpatient to consider cholecystectomy at that time. PAST MEDICAL HISTORY: 1. Severe nonischemic cardiomyopathy with an ejection fraction of 50 to 55% in 2019. 2. Atrial fibrillation. 3. Hypertension. 4. Hyperlipidemia. 5. Coronary artery disease. PAST SURGICAL HISTORY: Cardiac catheterization and ERCP. As far as we can tell , there is no prior surgical intervention. MEDICATIONS: Include: 1. Metformin. 2. Metoprolol. 3. Lasix. 4. Lisinopril. 5. Lipitor. 6. Omeprazole. ALLERGIES: He has no known drug allergies. FAMILY HISTORY: Unable to be obtained from the patient. SOCIAL HISTORY: Apparently, according to old records, he does not smoke or drink alcohol. There is no family members with him and unable to obtain further social information. REVIEW OF SYSTEMS: Also unable to be completely reviewed as per above. PHYSICAL EXAM: Temperature now at 103.1, pulse 87, blood pressure 86/52. General: He is an elderly male, does not appear to be in any acute distress, on BiPAP machine. He does answer questions with simple answers, but he is difficult to understand, I am not certain of his comfort level with speaking Mongolian. His sclerae anicteric. His lungs were clear to auscultation with diminished breath sounds at the bases without rhonchi or wheezing. His heart was regular rate and rhythm without murmur, rubs or gallops. Abdomen is soft, but distended. There are no prior surgical incisions; however, there appeared to be some smaller 1 cm incisions in the upper abdomen along the left rib cage as well as some along the right rib cage. I am not certain if these may have been laparoscopic or intraabdominal surgical procedures. There are no hernias noted. He has no evidence of peritonitis, rebound or guarding. There is no localized tenderness in the right upper quadrant. Extremities showed no cyanosis or edema. IMPRESSION AND RECOMMENDATIONS: Sudden onset of abdominal discomfort with an impressively high fever and mild elevation of his total bilirubin, liver transaminases. CT scan as per above. Does not show otherwise of acute findings. His physical exam shows no peritonitis or findings consistent with an acute surgical abdomen. At this point, plan is to be admitted to the intensive care unit. His blood cultures have been obtained. He has been started on broad-spectrum IV antibiotics. Gastroenterology is to be consulted, which I agree with. Typically , acute cholecystitis does not cause rapid onset of sepsis which appears to be quite severe by his parameters here today. More likely this would be possible cholangitis in early stage and his LFTs may not have been elevated. Interestingly, he has got a sphincterotomy in the past, and no obvious stones in the common duct were noted on the CT scan. I believe that he most likely will warrant an MRCP if he is stable for transportation after further resuscitation and treatment. At this point, I have no plans for urgent laparoscopy and/or laparotomy, but we will follow him closely with you. I discussed all of the above with Dr. Castillo and I believe that she may involve the roll filler service as well. [id number]/[facility] #: [id number] MTDD
--- NOTE | 2018-11-19 18:01 | PN ---
Date of Service: 11/19/18 Critical Care Services: Critical Care Consultation Vital Signs: Temp Pulse Resp BP SpO2 FiO2 97.9 F 79 20 106/71 100 30 11/19/18 17:00 11/19/18 17:00 11/19/18 17:00 11/19/18 16:45 11/19/18 17:00 11/19 16:00 Physical Exam: Gen: Alert, NAD HEENT: Atraumatic, normocephalic Lungs: clear apices, diminished bases, crackles bilaterally Cardiac: normal S1S2, irregular/afib on tele, no murmurs or rubs Abdomen: mildly distended, diffusely tender Extremities: warm, perfused, no clubbing, no edema, brisk cap refill Neuro: A&Ox4, no focal deficits Fluid Balance (Past 24 Hours): I= O= Net Intake & Output 11/17/18 11/18/18 11/19/18 11/20/18 06:59 06:59 06:59 06:59 Intake Total 2550 Output Total 930 Balance 1620 Weight 170 lb 169 lb 12.095 oz Intake: IV Fluids 2550 Output: [place] 930 Labs: Laboratory Results - last 24 hr 11/19/18 11/19/18 11/19/18 05:02 05:02 05:02 WBC 17.4 H RBC 5.54 H Hgb 14.0 Hct 45 MCV 81 MCH 25 L MCHC 31 RDW 15 Plt Count 213 MPV 9.6 Neut % (Auto) 85.2 Lymph % (Auto) 8.0 Jerome % (Auto) 5.7 Eos % (Auto) 0.9 Baso % (Auto) 0.2 Absolute Neuts (auto) 14.8 H Absolute Lymphs (auto) 1.4 Absolute Monos (auto) 1.0 H Absolute Eos (auto) 0.2 Absolute Basos (auto) 0 Absolute Nucleated RBC 0 Nucleated RBC % 0.1 INR (Anticoag Therapy) Patient Temperature ABG pH ABG pH (Temp Correct) ABG pCO2 ABG pCO2 (Temp Corrct ABG pO2 ABG pO2 (Temp Correct ABG HCO3 ABG O2 Saturation ABG Base Excess Respiration Rate O2 Delivery Device Ventilator Type Vent Mode FiO2 Inspiratory Time PEEP Pressure Support Pressure Control EPAP IPAP BiPAP Sodium 136 Potassium 4.6 Chloride 104 Carbon Dioxide 22 Anion Gap 10 BUN 12 Creatinine 1.00 Est GFR ( Amer) 89.1 Est GFR (Non-Af Amer) 73.7 BUN/Creatinine Ratio 12.0 Glucose 198 H POC Glucose (mg/dL) Lactic Acid 3.2 H* Calcium 10.1 Total Bilirubin 2.10 H AST 110 H ALT 76 H Alkaline Phosphatase 176 H Troponin I 0.03 C-Reactive Protein 7.96 Total Protein 8.4 Albumin 4.4 Globulin 4.0 Albumin/Globulin Ratio 1.1 Lipase 15 Urine Color Urine Appearance Urine pH Ur Specific [place] Urine Protein Urine Ketones Urine Blood Urine Nitrate Urine Bilirubin Urine Urobilinogen Ur Leukocyte Esterase Urine WBC (Auto) Urine RBC (Auto) Ur Squamous Epith Cells Urine Bacteria Hyaline Casts Urine Glucose Blood Type Antibody Screen 11/19/18 11/19/18 11/19/18 07:40 09:25 09:45 WBC RBC Hgb Hct MCV MCH MCHC RDW Plt Count MPV Neut % (Auto) Lymph % (Auto) Jerome % (Auto) Eos % (Auto) Baso % (Auto) Absolute Neuts (auto) Absolute Lymphs (auto) Absolute Monos (auto) Absolute Eos (auto) Absolute Basos (auto) Absolute Nucleated RBC Nucleated RBC % INR (Anticoag Therapy) Patient Temperature Not Reportable ABG pH 7.38 ABG pH (Temp Correct) Not Reportable ABG pCO2 38 ABG pCO2 (Temp Corrct Not Reportable ABG pO2 282 H ABG pO2 (Temp Correct Not Reportable ABG HCO3 23.1 ABG O2 Saturation 100.0 H ABG Base Excess -2.3 L Respiration Rate Not Reportable O2 Delivery Device Bipap Ventilator Type Not Reportable Vent Mode Not Reportable FiO2 100 Inspiratory Time Not Reportable PEEP Not Reportable Pressure Support Not Reportable Pressure Control Not Reportable EPAP 6 IPAP 12 BiPAP Not Reportable Sodium Potassium Chloride Carbon Dioxide Anion Gap BUN Creatinine Est GFR ( Amer) Est GFR (Non-Af Amer) BUN/Creatinine Ratio Glucose POC Glucose (mg/dL) Lactic Acid 2.2 H* Calcium Total Bilirubin AST ALT Alkaline Phosphatase Troponin I C-Reactive Protein Total Protein Albumin Globulin Albumin/Globulin Ratio Lipase Urine Color Yellow Urine Appearance Clear Urine pH 6.0 Ur Specific [place] 1.039 H Urine Protein 2+(100 mg/dl) A Urine Ketones Trace A Urine Blood Negative Urine Nitrate Negative Urine Bilirubin Negative Urine Urobilinogen Negative Ur Leukocyte Esterase Negative Urine WBC (Auto) Trace(0-5/hpf) Urine RBC (Auto) Trace(0-2/hpf) Ur Squamous Epith Cells Present A Urine Bacteria Absent Hyaline Casts Present A Urine Glucose 2+(150 mg/dl) A Blood Type Antibody Screen 11/19/18 11/19/18 11/19/18 11:24 11:24 11:27 WBC RBC Hgb Hct MCV MCH MCHC RDW Plt Count MPV Neut % (Auto) Lymph % (Auto) Jerome % (Auto) Eos % (Auto) Baso % (Auto) Absolute Neuts (auto) Absolute Lymphs (auto) Absolute Monos (auto) Absolute Eos (auto) Absolute Basos (auto) Absolute Nucleated RBC Nucleated RBC % INR (Anticoag Therapy) 1.20 H Patient Temperature ABG pH ABG pH (Temp Correct) ABG pCO2 ABG pCO2 (Temp Corrct ABG pO2 ABG pO2 (Temp Correct ABG HCO3 ABG O2 Saturation ABG Base Excess Respiration Rate O2 Delivery Device Ventilator Type Vent Mode FiO2 Inspiratory Time PEEP Pressure Support Pressure Control EPAP IPAP BiPAP Sodium Potassium Chloride Carbon Dioxide Anion Gap BUN Creatinine Est GFR ( Amer) Est GFR (Non-Af Amer) BUN/Creatinine Ratio Glucose POC Glucose (mg/dL) 244 H Lactic Acid Calcium Total Bilirubin AST ALT Alkaline Phosphatase Troponin I C-Reactive Protein Total Protein Albumin Globulin Albumin/Globulin Ratio Lipase Urine Color Urine Appearance Urine pH Ur Specific [place] Urine Protein Urine Ketones Urine Blood Urine Nitrate Urine Bilirubin Urine Urobilinogen Ur Leukocyte Esterase Urine WBC (Auto) Urine RBC (Auto) Ur Squamous Epith Cells Urine Bacteria Hyaline Casts Urine Glucose Blood Type O Positive Antibody Screen Negative Studies: Patient Name: VENESSA MADRIGAL Medical Record#: [id number] Ordering Physician: Ruy Pimentel MD Acct.#: [id number] : 1945 Age: 73 Sex: M Location: EMERGENCY DEPARTMENT Exam Date: 11/19/18454 ADM Status: REG ER Order Information: CTA ABD/PEL Accession Number: [id number] CPT: 09948 ADDENDUM Lungs: There is scarring noted at the bilateral lung bases. There are regions of mosaic attenuation noted. To contact [facility] with a general question: [facility] - [phone] For direct physician to physician contact: Physician Hotline - [phone] [facility] (ad Facility ID #[id number]) <Electronically signed by José Miguel Muir MD in OV>11/19/18727 Dictated by: José Miguel Muir MD Dictated Date/Time:11/19/18727 Transcribed Date/Time: Copy to: Ifeanyi Christopher MD; No Primary Care Phys,NOPCP ; Ruy Pimentel MD EXAM: CT Angiography Abdomen and Pelvis With Contrast EXAM DATE/TIME: 11/19/2018 6:18 AM CLINICAL HISTORY: 73 years old, male; Abdominal pain; Acute; Additional info: Abrupt abd pain, suspect mesenteric ischemia TECHNIQUE: Imaging protocol: Axial computed tomographic angiography images of the abdomen and pelvis with intravenous contrast material, including non-contrast images if performed. Coronal and sagittal reformatted images were created and reviewed. 3D rendering: MIP reconstructed images were created and reviewed. Radiation optimization: All CT scans at this facility use at least one of these dose optimization techniques: automated exposure control; mA and/or kV adjustment per patient size (includes targeted exams where dose is matched to clinical indication); or iterative reconstruction. Contrast material: OMNI 350; Contrast volume: 99 ml; Contrast route: IV; COMPARISON: A/P W CT ABD/PEL W 08/22/2016 5:52 PM FINDINGS: Lungs: There is scarring noted at the bilateral lung bases. There are regions of present attenuation could VASCULATURE: Aorta: No aortic aneurysm. No aortic dissection. There is scattered atherosclerotic disease. Celiac trunk and mesenteric arteries: No occlusion or significant stenosis. Renal arteries: No occlusion or significant stenosis. Right iliac arteries: No occlusion or significant stenosis. Left iliac arteries: No occlusion or significant stenosis. ABDOMEN: Liver: No mass. Gallbladder and bile ducts: Unremarkable. No calcified stones. No ductal dilation. Pancreas: Unremarkable. No mass. No ductal dilation. Spleen: Unremarkable. No splenomegaly. Adrenals: Unremarkable. No mass. Kidneys and ureters: Unremarkable. No solid mass. No hydronephrosis. Stomach and bowel: Unremarkable. No obstruction. No mucosal thickening. Appendix: The appendix is visualized and is unremarkable. PELVIS: Bladder: Unremarkable. No mass. Reproductive: Unremarkable as visualized. ABDOMEN and PELVIS: Intraperitoneal space: Unremarkable. No free air. No significant fluid collection. Bones/joints: No acute fracture. No dislocation. Soft tissues: Unremarkable. Lymph nodes: Unremarkable. No enlarged lymph nodes. IMPRESSION: No evidence of arterial stenosis or occlusion. No evidence of bowel wall thickening or pneumatosis. Patient Name: VENESSA MADRIGAL Medical Record#: [id number] Ordering Physician: Suzie Germain NP Acct.#: [id number] : 1945 Age: 73 Sex: M Location: INTENSIVE CARE UNIT Exam Date: 11/19/18 1302 ADM Status: ADM IN Order Information: CHEST AP OR PORT Accession Number: [id number] CPT: 98309 Indication: Confirm PICC placement. Comparison: November 19, 2018 Technique: Upright AP 1327 hours Report: Tip of LEFT upper extremity PICC at the level of the RIGHT atrium. Negative for pneumothorax. Superimposed extrinsic material limits image quality. Grossly clear lungs and pleural spaces. Unchanged cardiomegaly. Unremarkable central pulmonary vasculature. IMPRESSION: #. Tip of LEFT upper extremity PICC at the level of the RIGHT atrium. Negative for pneumothorax. Patient Name: VENESSA MADRIGAL Medical Record#: [id number] Ordering Physician: Ruy Pimentel MD Acct.#: [id number] : 1945 Age: 73 Sex: M Location: EMERGENCY DEPARTMENT Exam Date: 11/19/18 0626 ADM Status: REG ER Order Information: US GALL BLADDER Accession Number: [id number] CPT: 40864 HISTORY: l sided abd pain,elev lfts,prior gallstone COMPARISONS: CT dated November 19, 2018 TECHNIQUE: Multiple transverse and longitudinal ultrasound images were obtained of the right upper quadrant of the abdomen using grayscale and color Doppler imaging. FINDINGS: LIVER: The liver is diffusely echogenic and coarse in echotexture, with decreased acoustic transmission. The liver is otherwise normal in shape, size, and contour. There is normal hepatopedal flow of the portal vein on Doppler imaging. BILIARY TREE: There is no intrahepatic biliary dilatation. The common duct measures 1 cm. GALLBLADDER: There is a positive sonographic Peraza sign. There is no appreciable cholelithiasis. There is gallbladder wall thickening. There is no pericholecystic fluid. PANCREAS: The head of the pancreas is unremarkable. The tail of the pancreas is not well visualized secondary to overlying bowel gas. RIGHT KIDNEY: The right kidney is normal in shape, size, contour, and echogenicity. There is no hydronephrosis or nephrolithiasis. The right kidney measures 10.6 x 6 x 4.8 cm. AORTA AND IVC: The aorta and IVC are unremarkable. FLUID: There are no pleural effusions. There is no free fluid within the hepatorenal recess. OTHER FINDINGS: None. IMPRESSION: 1. FATTY INFILTRATION OF THE LIVER. 2. POSITIVE SONOGRAPHIC PERAZA SIGN WITH GALLBLADDER WALL THICKENING, WITHOUT PERICHOLECYSTIC FLUID OR APPRECIABLE STONE. THOUGH THE IMAGING FEATURES ARE INDETERMINATE FOR ACUTE CHOLECYSTITIS, THE PRESENCE OF A SONOGRAPHIC PERAZA SIGN IS CONCERNING FOR ACALCULOUS CHOLECYSTITIS. 3. THE COMMON DUCT IS DILATED UP TO 1 CM. THERE IS NO APPRECIABLE INTRAHEPATIC BILIARY DILATATION. Impression: This is a 73 year old male with history of sever cardiomyoapthy, CAD, HT, HLP, DM and afib that presented to the ED with complaints of fever, abdominal pain and respiratory distress requiring Bipap and cooling. Plan: Diagnoses: 1. Abdominal Pain 2/2 cholangitis 2. Fever 2/2 sepsis 3. Hx of afib 4. Severe Cardiomyopathy with recent EF of 50-55% 5. DM 6. HLP Plan/Recommendations: Neuro - Mentating appropriately CV - chronic afib with RVR at admission, now controlled, cardizem drip DCd - Hypotensive at admission 2/2 sepsis, low dose levophed started (2mcg), now off, BP stable - Flash pulmonary edema after IVF requiring Bipap - Continue metoprolol succ 25mg daily Pulm - Bipap initially for resp distress, titrated down and tolerating - ABG 7.38/38/28.2/23.1 - Weaned off Bipap onto NC and tolerating GI/ - NPO - Protonix IV daily, zofran PRN - GI and surgery consulted - Plan for MRCP today with Dr. Parnell and possible surgery tomorrow Musculoskeletal - OOB to chair ID - Continue empiric zosyn - s/p sepsis bundle bolus in ED - Tylenol for fevers - Cooling device PRN - IVF at maintenance - LA trending down 3.2/2.2 now off pressors DVT prophylaxis: Heparin SQ Code Status: Full code Critical Care Time: 30 minutes critical care consultation
--- NOTE | 2018-11-19 18:02 | CONS ---
CC: Dr. Rudolph; Dr. Gerardo * CONSULTATION REPORT: DATE OF CONSULT: 11/19/18 LOCATION: The patient was seen in ICU bed 10. NARRATIVE: Mr. Leonard is a pleasant 73-year-old gentleman who is [place] and his [place]olan is somewhat limited and he is on BiPAP right now, so it is somewhat difficult to understand him. Some of the information was obtained from the chart and from interview with the patient. The patient was brought to the emergency room late last night around 1 a.m. this morning with complaints of pain. The pain was severe. He denied vomiting or diarrhea to the ED provider. The patient did have a fever and was found to be in rapid AFib and was put on BiPAP and was admitted to the hospital with a presumed diagnosis of sepsis secondary to possible cholangitis. In interviewing the patient, he states that the pain has been present for may be 1 day, it is better now than it was before. He denies any injury or trauma. He denies eating any strange foods. He states that this pain is similar to a pain he had a few years ago when he had to have an ERCP. He denied any chills to me yesterday or today. No new medications. He states that he is feeling a little bit better. His pain is now down to a 4 whereas before it was at 9 to 10. PAST MEDICAL HISTORY: Significant for cardiomyopathy, atrial fibrillation, hypertension, hyperlipidemia, coronary artery disease, history of cholelithiasis. PAST SURGICAL HISTORY: Includes cardiac cath, ERCP in 2017 at which time a sphincterotomy and stone extraction occurred. MEDICATIONS: Upon admission include: 1. Omeprazole. 2. Lipitor. 3. Lisinopril. 4. Lasix. 5. Metoprolol. 6. Metformin. ALLERGIES: None. FAMILY HISTORY: He denies any GI cancers in the family. SOCIAL HISTORY: No tobacco or alcohol. PHYSICAL EXAM: Temperature is currently 97.7, blood pressure is 96/63, O2 sat is 100%, respiratory rate of 12, T-max was 104.7. General: male, lying flat in bed, somewhat conversant, alert. HEENT: Mucous membranes are dry as visualized through his BiPAP mask. Sclerae are icteric. Heart: Irregular rate and rhythm. Lungs: Coarse breath sounds bilaterally. Abdomen: Positive bowel sounds, distended. Mild tenderness throughout. No rebound, no guarding. Skin is warm and dry. DIAGNOSTIC STUDIES/LAB DATA: Labs of note, he has got a white count of 17.4, hemoglobin of 14, platelets of 213. INR is 1.20. Lactic acid is 2.2, bilirubin is 2.1. AST is 110, ALT is 76, alk phos is 176. He had a gallbladder ultrasound from 6 o'clock this morning, which revealed fatty infiltration of the liver. Positive sonographic Peraza's sign with gall- bladder wall thickening without pericholecystic fluid or appreciable stone, though the imaging features are indeterminate for acute cholecystitis. The presence of a sonographic Peraza's sign is concerning for acalculous cholecystitis. Common bile duct is dilated to 1 cm. There is no appreciable intrahepatic biliary dilatation. He also has a CT abdomen and pelvis from a few hours earlier, which revealed no arterial stenosis or occlusion, no evidence of bowel wall thickening or pneumatosis. ASSESSMENT AND PLAN: Mr. Leonard is a pleasant 73-year-old gentleman with a history of biliary stones in the past. He presents now with fever, pain, increased LFTs, all consistent with cholangitis. He has been started on broad- spectrum antibiotics already. His ultrasound does show approximately 1 cm common bile duct. He did have a sphincterotomy and stone extraction in the past. I think at this point we should pursue another MRCP as he had in the past to evaluate for any recurrent stones. We will make arrangements for that today. He will remain on antibiotics, fluids and very close monitoring and depending on the MRCP, he may need ERCP in the next day or 2. We will continue to follow along. [id number]/[facility] #: [id number] EAN
[2018-11-20] MEDS: Insulin LISPRO* 1 UNITS UNIT SUBCUT SCH ×4 (00:26→18:03)
[2018-11-20] MEDS: Morphine 4 MG/ML VIAL (1 ml) 4 MG/ML VIAL IV SCH ×6 (02:50→21:56)
[2018-11-20] MEDS ORDERED: Vancomycin(*) 1,000 MG in NS 0.9% 250 ML* 250 ML IVPB ONE (03:30)
[2018-11-20] MEDS: Heparin VIAL(*) 5000 UNITS/ML VIAL (FIVE THOUSAND) SUBCUT SCH (06:34)
[2018-11-20] MEDS: ZOSYN 3.375 GM Q8H per EXTENDED INFUSION IVPB SCH ×6 (06:34→21:56)
[2018-11-20 06:52] LABS: Hematocrit 36 % (36-46); Hemoglobin 11.4 g/dL (14.0-18.0); Mean Corpuscular HGB Conc 32 g/dL (31-36); Mean Corpuscular Hemoglobin 25 pg (27-31); Mean Corpuscular Volume 80 fL (80-94); Mean Platelet Volume 9.7 fL (7.4-10.4); Platelet Count 166 10^3/uL (150-450); Red Blood Count 4.51 10^6 /uL (4.18-5.48); Red Cell Distribution Width 15 % (10.5-15); White Blood Count 31.6 10^3/uL (3.5-10.8)
[2018-11-20 07:05] LABS: INR 1.26 (0.82-1.09)
[2018-11-20 07:11] LABS: Albumin 3.4 g/dL (3.2-5.2); Calcium 8.9 mg/dL (8.6-10.3); Potassium 4.2 mmol/L (3.5-5.0); Total Bilirubin 3.8 mg/dL (0.2-1.0)
[2018-11-20 07:17] LABS: Albumin/Globulin Ratio 1.1 (1-3); EGFR African American 64.1 (>60); Total Protein 6.4 g/dL (6.4-8.9)
[2018-11-20 07:23] LABS: ABS Basophils 0 10^3/ul (0-0.2); ABS Eosinophils 0 10^3/ul (0-0.6); ABS Lymphocytes 1.1 10^3/ul (1.0-4.8); ABS Monocytes 1.1 10^3/ul (0-0.8); ABS Neutrophils 29.3 10^3/ul (1.5-7.7); ABS Nucleated RBC 0 10^3/ul; Eosinophil % 0 %; Lymphocyte % 3.5 %; Nucleated Red Blood Cells % 0
--- NOTE | 2018-11-20 08:03 | PN ---
Date of Service: 11/20/18 - HD 2 Critical Care Services: 73 yo M with PMH including Afib, HTN, CHF presented to the hospital on 11/19 with LLQ abdominal pain. On exam noted to have diffuse tenderness with guarding worse on left. WBC elevated at 17.4. CT unremarkable. US of gallbladder with fatty infiltration of liver, positive sonography Peraza's sign , gall bladder wall thickening and dilated CBD. EKG shows Afib with RVR. Started on IVF, diltiazem. Developed some wheezing throught to be due to volume resuscitation. Admitted to medical service, surgery consulted. 11/20: No overnight events. Vital Signs: Temp Pulse Resp BP SpO2 FiO2 97.7 F 94 18 110/75 100 30 11/20/18 06:01 11/20/18 06:01 11/20/18 07:26 11/20/18 06:00 11/20/18 06:01 11/19 16:00 Physical Exam: Gen: alert, conversant HEENT: moist mucus membranes Lungs: CTAB Cardiac: RRR Abdomen: soft. Minimally TTP in RUQ Extremities: warm, dry Neuro: alert and oriented Fluid Balance (Past 24 Hours): I= O= Net Intake & Output 11/18/18 11/19/18 11/20/18 11/21/18 06:59 06:59 06:59 06:59 Intake Total 2730 Output Total 1122 Balance 1608 Weight 170 lb 169 lb 12.095 oz Intake: IV Fluids 2650 ABX - ZOSYN 100 Oral 0 [place] Amount 80 Output: [place] 1122 Labs: Laboratory Results - last 24 hr 11/19/18 11/19/18 11/19/18 05:02 07:40 09:25 WBC RBC Hgb Hct MCV MCH MCHC RDW Plt Count MPV Neut % (Auto) Lymph % (Auto) [place] % (Auto) Eos % (Auto) Baso % (Auto) Absolute Neuts (auto) Absolute Lymphs (auto) Absolute Monos (auto) Absolute Eos (auto) Absolute Basos (auto) Absolute Nucleated RBC Nucleated RBC % INR (Anticoag Therapy) Patient Temperature Not Reportable ABG pH 7.38 ABG pH (Temp Correct) Not Reportable ABG pCO2 38 ABG pCO2 (Temp Corrct Not Reportable ABG pO2 282 H ABG pO2 (Temp Correct Not Reportable ABG HCO3 23.1 ABG O2 Saturation 100.0 H ABG Base Excess -2.3 L Respiration Rate Not Reportable O2 Delivery Device Bipap Ventilator Type Not Reportable Vent Mode Not Reportable FiO2 100 Inspiratory Time Not Reportable PEEP Not Reportable Pressure Support Not Reportable Pressure Control Not Reportable EPAP 6 IPAP 12 BiPAP Not Reportable Sodium 136 Potassium 4.6 Chloride 104 Carbon Dioxide 22 Anion Gap 10 BUN 12 Creatinine 1.00 Est GFR ( Amer) 89.1 Est GFR (Non-Af Amer) 73.7 BUN/Creatinine Ratio 12.0 Glucose 198 H POC Glucose (mg/dL) Lactic Acid Calcium 10.1 Total Bilirubin 2.10 H AST 110 H ALT 76 H Alkaline Phosphatase 176 H Troponin I 0.03 C-Reactive Protein 7.96 Total Protein 8.4 Albumin 4.4 Globulin 4.0 Albumin/Globulin Ratio 1.1 Lipase 15 Urine Color Yellow Urine Appearance Clear Urine pH 6.0 Ur Specific [place] 1.039 H Urine Protein 2+(100 mg/dl) A Urine Ketones Trace A Urine Blood Negative Urine Nitrate Negative Urine Bilirubin Negative Urine Urobilinogen Negative Ur Leukocyte Esterase Negative Urine WBC (Auto) Trace(0-5/hpf) Urine RBC (Auto) Trace(0-2/hpf) Ur Squamous Epith Cells Present A Urine Bacteria Absent Hyaline Casts Present A Urine Glucose 2+(150 mg/dl) A Blood Type Antibody Screen 11/19/18 11/19/18 11/19/18 09:45 11:24 11:24 WBC RBC Hgb Hct MCV MCH MCHC RDW Plt Count MPV Neut % (Auto) Lymph % (Auto) [place] % (Auto) Eos % (Auto) Baso % (Auto) Absolute Neuts (auto) Absolute Lymphs (auto) Absolute Monos (auto) Absolute Eos (auto) Absolute Basos (auto) Absolute Nucleated RBC Nucleated RBC % INR (Anticoag Therapy) 1.20 H Patient Temperature ABG pH ABG pH (Temp Correct) ABG pCO2 ABG pCO2 (Temp Corrct ABG pO2 ABG pO2 (Temp Correct ABG HCO3 ABG O2 Saturation ABG Base Excess Respiration Rate O2 Delivery Device Ventilator Type Vent Mode FiO2 Inspiratory Time PEEP Pressure Support Pressure Control EPAP IPAP BiPAP Sodium Potassium Chloride Carbon Dioxide Anion Gap BUN Creatinine Est GFR ( Amer) Est GFR (Non-Af Amer) BUN/Creatinine Ratio Glucose POC Glucose (mg/dL) Lactic Acid 2.2 H* Calcium Total Bilirubin AST ALT Alkaline Phosphatase Troponin I C-Reactive Protein Total Protein Albumin Globulin Albumin/Globulin Ratio Lipase Urine Color Urine Appearance Urine pH Ur Specific [place] Urine Protein Urine Ketones Urine Blood Urine Nitrate Urine Bilirubin Urine Urobilinogen Ur Leukocyte Esterase Urine WBC (Auto) Urine RBC (Auto) Ur Squamous Epith Cells Urine Bacteria Hyaline Casts Urine Glucose Blood Type O Positive Antibody Screen Negative 11/19/18 11/19/18 11/20/18 11:27 18:29 00:12 WBC RBC Hgb Hct MCV MCH MCHC RDW Plt Count MPV Neut % (Auto) Lymph % (Auto) [place] % (Auto) Eos % (Auto) Baso % (Auto) Absolute Neuts (auto) Absolute Lymphs (auto) Absolute Monos (auto) Absolute Eos (auto) Absolute Basos (auto) Absolute Nucleated RBC Nucleated RBC % INR (Anticoag Therapy) Patient Temperature ABG pH ABG pH (Temp Correct) ABG pCO2 ABG pCO2 (Temp Corrct ABG pO2 ABG pO2 (Temp Correct ABG HCO3 ABG O2 Saturation ABG Base Excess Respiration Rate O2 Delivery Device Ventilator Type Vent Mode FiO2 Inspiratory Time PEEP Pressure Support Pressure Control EPAP IPAP BiPAP Sodium Potassium Chloride Carbon Dioxide Anion Gap BUN Creatinine Est GFR ( Amer) Est GFR (Non-Af Amer) BUN/Creatinine Ratio Glucose POC Glucose (mg/dL) 244 H 346 H 276 H Lactic Acid Calcium Total Bilirubin AST ALT Alkaline Phosphatase Troponin I C-Reactive Protein Total Protein Albumin Globulin Albumin/Globulin Ratio Lipase Urine Color Urine Appearance Urine pH Ur Specific [place] Urine Protein Urine Ketones Urine Blood Urine Nitrate Urine Bilirubin Urine Urobilinogen Ur Leukocyte Esterase Urine WBC (Auto) Urine RBC (Auto) Ur Squamous Epith Cells Urine Bacteria Hyaline Casts Urine Glucose Blood Type Antibody Screen 11/20/18 11/20/18 11/20/18 06:04 06:30 06:30 WBC 31.6 H RBC 4.51 Hgb 11.4 L Hct 36 MCV 80 MCH 25 L MCHC 32 RDW 15 Plt Count 166 MPV 9.7 Neut % (Auto) 92.9 Lymph % (Auto) 3.5 [place] % (Auto) 3.6 Eos % (Auto) 0 Baso % (Auto) 0 Absolute Neuts (auto) 29.3 H Absolute Lymphs (auto) 1.1 Absolute Monos (auto) 1.1 H Absolute Eos (auto) 0 Absolute Basos (auto) 0 Absolute Nucleated RBC 0 Nucleated RBC % 0 INR (Anticoag Therapy) Patient Temperature ABG pH ABG pH (Temp Correct) ABG pCO2 ABG pCO2 (Temp Corrct ABG pO2 ABG pO2 (Temp Correct ABG HCO3 ABG O2 Saturation ABG Base Excess Respiration Rate O2 Delivery Device Ventilator Type Vent Mode FiO2 Inspiratory Time PEEP Pressure Support Pressure Control EPAP IPAP BiPAP Sodium 141 Potassium 4.2 Chloride 107 Carbon Dioxide 26 Anion Gap 8 BUN 24 Creatinine 1.33 H Est GFR ( Amer) 64.1 Est GFR (Non-Af Amer) 53.0 BUN/Creatinine Ratio 18.0 Glucose 195 H POC Glucose (mg/dL) 205 H Lactic Acid Calcium 8.9 Total Bilirubin 3.80 H D AST 174 H ALT 219 H Alkaline Phosphatase 154 H Troponin I C-Reactive Protein Total Protein 6.4 Albumin 3.4 Globulin 3.0 Albumin/Globulin Ratio 1.1 Lipase Urine Color Urine Appearance Urine pH Ur Specific [place] Urine Protein Urine Ketones Urine Blood Urine Nitrate Urine Bilirubin Urine Urobilinogen Ur Leukocyte Esterase Urine WBC (Auto) Urine RBC (Auto) Ur Squamous Epith Cells Urine Bacteria Hyaline Casts Urine Glucose Blood Type Antibody Screen 11/20/18 06:30 WBC RBC Hgb Hct MCV MCH MCHC RDW Plt Count MPV Neut % (Auto) Lymph % (Auto) [place] % (Auto) Eos % (Auto) Baso % (Auto) Absolute Neuts (auto) Absolute Lymphs (auto) Absolute Monos (auto) Absolute Eos (auto) Absolute Basos (auto) Absolute Nucleated RBC Nucleated RBC % INR (Anticoag Therapy) 1.26 H Patient Temperature ABG pH ABG pH (Temp Correct) ABG pCO2 ABG pCO2 (Temp Corrct ABG pO2 ABG pO2 (Temp Correct ABG HCO3 ABG O2 Saturation ABG Base Excess Respiration Rate O2 Delivery Device Ventilator Type Vent Mode FiO2 Inspiratory Time PEEP Pressure Support Pressure Control EPAP IPAP BiPAP Sodium Potassium Chloride Carbon Dioxide Anion Gap BUN Creatinine Est GFR ( Amer) Est GFR (Non-Af Amer) BUN/Creatinine Ratio Glucose POC Glucose (mg/dL) Lactic Acid Calcium Total Bilirubin AST ALT Alkaline Phosphatase Troponin I C-Reactive Protein Total Protein Albumin Globulin Albumin/Globulin Ratio Lipase Urine Color Urine Appearance Urine pH Ur Specific [place] Urine Protein Urine Ketones Urine Blood Urine Nitrate Urine Bilirubin Urine Urobilinogen Ur Leukocyte Esterase Urine WBC (Auto) Urine RBC (Auto) Ur Squamous Epith Cells Urine Bacteria Hyaline Casts Urine Glucose Blood Type Antibody Screen Studies: 11/19 MRCP - CBD terminiation inferior pancreatic head concerning for choledocholithasis vs CBD stenosis vs compressive lesion. 11/19 CXR - Grossly clear lungs and pleural spaces 11/19 US gallbladder - fatty infiltration of liver, positive sonographic Peraza' s sign, gallbladder wall thickening. Dilated CBD. 11/19 CT abdomen - no acute process Nutrition: NPO for procedure Impression: 73 yo M admitted with choledocholithiasis and acute cholecystitis. Plan: Cardiovascular: (1) Afib with RVR, resolved; (2) chronic atrial fibrillation; ( 3) Benign essential hypertension; (4) Chronic systolic CHF; (5) Dyslipidemia -- HR 73-101 -- SBP 66-200 -- Telemetry -- Atorvastatin -- Lasix, lisinopril, metoprolol Home meds: atorvastatin, metoprolol, lasix, lisinopril Pulmonary: No acute issues -- RR 11-45 -- sats 92-100 on RA Home meds: None Gastrointestinal: (1) Acute cholecystitis with choledocholithiasis -- LFTs Tbili 3.80 from 2.10 ALK 154 from 176 AST 174 from 110 ALT 219 from 76 -- Lipase 15 on 11/19 -- diet: NPO for possible procedure -- bowel regimen: none -- ulcer prophylaxis: Protonix -- PRN Zofran -- GI following; will clarify plans for ERCP -- General surgery following for possible lap freddy Home meds: Omeprazole Endocrine: (1) Type 2 diabetes mellitus -- monitor BGs -- SSI Home meds: metformin Renal: (1) Elevated creatinine -- UOP: 47 ml/hr -- Cr 1.33 from 1.00, hydrate, follow trend -- Lytes Na 141 K 4.2 Ca 8.9 -- Lasix Home meds: None Infectious disease: (1) Acute cholecystitis with choledocholithiasis; (2) Sepsis -- Tmax 104.9 -- WBC 31.6 from 17.4 -- Micro 11/19 MRSA screen negative blood gram negative bacilli, gram positive diplococci -- ABX Zosyn Home meds: None Neurologic: (1) Abdominal pain, improving -- PRN Morphine for pain control Home meds: None Hematological: (1) Dilutional anemia -- Hgb 11.4 from 14.0, secondary to hydration, follow trend -- Plt 166 from 213 -- Coags INR 1.26 -- DVT prophylaxis: SQ Heparin Home meds: None Metabolic: No acute issues Home meds: None Deep vein thrombosis prophylaxis: SQ Heparin Dietary: Protonix Condition: stable Prognosis: good Code status: Full Disposition: Transfer to floor Cumulative time spent in the care of this patient (excluding any procedure time) : at least 45 minutes. Patient care included clinical interview (with patient and/or family), bedside exam of the patient, review of labs, x-rays, and other ancillary data, coordination of (respiratory, nursing care, review of patient's records, discussion regarding patients management with involved consultants, primary physician, pharmacists, and other healthcare personnel (dietary, case management , physical/occupational therapy etc.)
[2018-11-20] MEDS: Atorvastatin* 40 MG TAB PO SCH (08:20)
[2018-11-20] MEDS: Metoprolol Succinate XL TAB* 25 MG PO SCH (08:21)
[2018-11-20] MEDS: Furosemide TAB* 20 MG PO SCH (08:21)
[2018-11-20] MEDS: Lisinopril TAB* 5 MG PO SCH (08:21)
--- NOTE | 2018-11-20 08:33 | ECHO ---
*[facility]* [place] [address] Fax #: [phone] Transthoracic Echocardiogram (Report amended [id number]) Patient: Horacio, Height: 66 in / 167.6 Pastor cm : 1945 Weight: 169.6 lb / Study Date: 11/19/2018 77.1 kg Age: 73 BP: 91 / 53 Gender: M BMI/BSA: 27.4 kg/m^2 / HR: 75 bpm 1.87 m^2 *Emissions Testing And Repair Technician: * Stacy Erazo RD RN *Referring Physician: * Alicia Castillo *Reading Physician: * Justin Mckoy MD Indications: Congestive Heart Failure. History: Atrial fibrillation. Coronary artery disease. Congestive heart failure. PMH: Cardiomyopathy. Risk factors: Hypertension. Dyslipidemia. Conclusions Summary: 1. Left ventricle: The estimated ejection fraction is 50-55%. Wall motion is normal; there are no regional wall motion abnormalities. 2. Mitral valve: There is mild to moderate regurgitation. 3. Aortic valve: There is no evidence of stenosis. 4. Tricuspid valve: There is moderate regurgitation. 5. Pulmonary arteries: Systolic pressure is moderately increased, estimated to be 52 mm Hg. 6. Compared to study of 08/17/18, the left ventricle function and mitral regurgitation are the same. The elevated PASP is new. Study data: Transthoracic echocardiogram. Procedure: Transthoracic echocardiography was performed. Image quality was fair. Complete 2D, spectral Doppler, and color flow Doppler. Patient status: Inpatient. Patient room number: ICU 10. Rhythm: Atrial fibrillation. Findings Left ventricle: The cavity size is normal. Wall thickness is mildly increased. The estimated ejection fraction is 50-55%. Wall motion is normal; there are no regional wall motion abnormalities. Doppler parameters are consistent with abnormal left ventricular relaxation (grade 1 diastolic dysfunction). Right ventricle: The cavity size is normal. Systolic function is low normal. Left atrium: The atrium is severely dilated. Right atrium: The atrium is severely dilated. Mitral valve: The leaflets are mildly thickened. There is no evidence of stenosis. There is mild to moderate regurgitation. The peak diastolic gradient is 4.0 mm Hg. Aortic valve: The valve is trileaflet. The leaflets are mildly thickened. There is no evidence of stenosis. There is no significant regurgitation. The LVOT to aortic valve VTI ratio is 0.57. The ratio of LVOT to aortic valve peak velocity is 0.67. The ratio of LVOT to aortic valve mean velocity is 0.61. The mean systolic gradient is 3.0 mm Hg. The peak systolic gradient is 5.0 mm Hg. Tricuspid valve: The leaflets are normal thickness. There is no evidence of stenosis. There is moderate regurgitation. Pulmonic valve: The leaflets are normal thickness. There is no evidence of stenosis. There is trivial regurgitation. Aorta: Ascending aorta: The ascending aorta is appears normal. Aortic arch: The aortic arch is not visualized. The aortic root is not dilated. Pericardium: There is no pericardial effusion. Pulmonary arteries: The main pulmonary artery is normal-sized. Systolic pressure is moderately increased, estimated to be 52 mm Hg. Systemic veins: Inferior vena cava: The vessel is normal in size. The respirophasic diameter changes are blunted (< 50%). Measurements Left ventricle Value Ref Right atrium Value Ref MATIAS, LAX 4.4 cm 4.2 - 5.8 SI dim, ES (H) 6.3 cm 3.4 - ESD, LAX 3.3 cm 2.5 - 4.0 5.3 PW, ED, LAX (H) 1.2 cm 0.6 - 1.0 ML dim, ES, A4C (H) 4.9 cm 2.6 - FS 25 % 25 - 43 4.4 E', lat marley, TDI (L) 9.0 cm/sec >=10.0 SI dim, ES, A4C (H) 6.3 cm 3 .4 - E/e', lat marley, 11 5.3 TDI E', med marley, TDI 9.8 cm/sec >=7.0 Aortic valve Value R ef E/e', med marley, 10 Marley diam, ED 2.0 cm ---- ---- TDI Peak v, S 1.12 m/sec -------- E', avg, TDI 9.4 cm/sec Mean v, S 0.82 m/sec ---- ---- E/e', avg, TDI 11 <=14 VTI, S 22.7 cm - ------- Mean grad, S 3.0 mm Hg -------- LVOT Value Ref Peak grad, S 5.0 mm Hg -------- Peak kayley, S 0.75 m/sec Mean kayley, S 0.5 m/sec Mitral valve Value Ref VTI, S 12.9 cm Peak E 1 m/sec -------- Mean grad, S 1 mm Hg Decel time 180 ms -------- Peak grad, D 4.0 mm Hg -------- Ventricular septum Value Ref IVS, ED, LAX (H) 1.3 cm 0.6 - 1.0 Tricuspid valve Value Ref TR peak v (H) 3.3 m/sec <=2.8 Right ventricle Value Ref Peak RV-RA grad, 44 mm Hg -------- MATIAS, LAX 3.6 cm S MATIAS minor ax, 3.3 cm 1.9 - 3.5 A4C mid Aortic root Value Ref Root diam 3.2 cm <4.0 Left atrium Value Ref AP dim, ES (H) 4.60 cm 3.00 - Ascending aorta Value Ref 4.00 AAo AP diam, S 2.9 cm -------- ML dim, A4C 5.1 cm Vol/bsa, ES, 1-p (H) 55 ml/m^2 12 - 37 Inferior vena cava Value Ref A4C Diam 2.1 cm -------- Vol/bsa, ES, 1-p (H) 49 ml/m^2 11 - 43 A2C Vol/bsa, ES, A/L (H) 57 ml/m^2 16 - 34 Legend: (L) and (H) miguel values outside specified reference range. Amended Justin Mckoy MD 11/20/2018 08:32
[2018-11-20] MEDS ORDERED: metFORMIN* 500 MG TAB PO SCH (09:00)
[2018-11-20] MEDS ORDERED: Omeprazole CAP (NF) 20 MG CAP.DR PO SCH (09:00)
[2018-11-20] MEDS: Pantoprazole IV* 40 MG IV SCH (10:24)
--- NOTE | 2018-11-20 11:32 | PN ---
Progress Note - Progress Note Date of Service: 11/20/18 SOAP: Subjective: He feels much better No abdominal pain Objective: Temp Pulse Resp BP Pulse Ox 98.4 F 71 17 127/67 97 11/20/18 10:00 11/20/18 10:00 11/20/18 10:00 11/20/18 10:00 11/20/18 10:00 PEX: Abd is soft and non-distended. No tenderness Laboratory Results - last 24 hr 11/19/18 11/19/18 11/19/18 11:24 11:24 11:27 WBC RBC Hgb Hct MCV MCH MCHC RDW Plt Count MPV Neut % (Auto) Lymph % (Auto) [place] % (Auto) Eos % (Auto) Baso % (Auto) Absolute Neuts (auto) Absolute Lymphs (auto) Absolute Monos (auto) Absolute Eos (auto) Absolute Basos (auto) Absolute Nucleated RBC Nucleated RBC % INR (Anticoag Therapy) 1.20 H Sodium Potassium Chloride Carbon Dioxide Anion Gap BUN Creatinine Est GFR ( Amer) Est GFR (Non-Af Amer) BUN/Creatinine Ratio Glucose POC Glucose (mg/dL) 244 H Calcium Total Bilirubin AST ALT Alkaline Phosphatase Total Protein Albumin Globulin Albumin/Globulin Ratio Blood Type O Positive Antibody Screen Negative 11/19/18 11/20/18 11/20/18 18:29 00:12 06:04 WBC RBC Hgb Hct MCV MCH MCHC RDW Plt Count MPV Neut % (Auto) Lymph % (Auto) [place] % (Auto) Eos % (Auto) Baso % (Auto) Absolute Neuts (auto) Absolute Lymphs (auto) Absolute Monos (auto) Absolute Eos (auto) Absolute Basos (auto) Absolute Nucleated RBC Nucleated RBC % INR (Anticoag Therapy) Sodium Potassium Chloride Carbon Dioxide Anion Gap BUN Creatinine Est GFR ( Amer) Est GFR (Non-Af Amer) BUN/Creatinine Ratio Glucose POC Glucose (mg/dL) 346 H 276 H 205 H Calcium Total Bilirubin AST ALT Alkaline Phosphatase Total Protein Albumin Globulin Albumin/Globulin Ratio Blood Type Antibody Screen 11/20/18 11/20/18 11/20/18 06:30 06:30 06:30 WBC 31.6 H RBC 4.51 Hgb 11.4 L Hct 36 MCV 80 MCH 25 L MCHC 32 RDW 15 Plt Count 166 MPV 9.7 Neut % (Auto) 92.9 Lymph % (Auto) 3.5 [place] % (Auto) 3.6 Eos % (Auto) 0 Baso % (Auto) 0 Absolute Neuts (auto) 29.3 H Absolute Lymphs (auto) 1.1 Absolute Monos (auto) 1.1 H Absolute Eos (auto) 0 Absolute Basos (auto) 0 Absolute Nucleated RBC 0 Nucleated RBC % 0 INR (Anticoag Therapy) 1.26 H Sodium 141 Potassium 4.2 Chloride 107 Carbon Dioxide 26 Anion Gap 8 BUN 24 Creatinine 1.33 H Est GFR ( Amer) 64.1 Est GFR (Non-Af Amer) 53.0 BUN/Creatinine Ratio 18.0 Glucose 195 H POC Glucose (mg/dL) Calcium 8.9 Total Bilirubin 3.80 H D AST 174 H ALT 219 H Alkaline Phosphatase 154 H Total Protein 6.4 Albumin 3.4 Globulin 3.0 Albumin/Globulin Ratio 1.1 Blood Type Antibody Screen MRCP noted-distal CBD narrowing/obstruction Assessment: Cholangitis Plan: IV abx ERCP today with Dr. Beltran
[2018-11-20] MEDS ORDERED: KETAMINE HCL* 50 MG/ML 10 ML VIAL ONE (15:18)
[2018-11-20] MEDS ORDERED: fentaNYL* 50 MCG/ML 2 ML VIAL (100 MCG VIAL) ONE ×2 (15:18→17:49)
[2018-11-20] MEDS ORDERED: Midazolam* 1 MG/ML 2 ML VIAL (2 MG) ONE (15:18)
[2018-11-20] MEDS ORDERED: Atracurium* 10 MG/ML 10 ML VIAL ONE (16:42)
[2018-11-20] MEDS ORDERED: Phenylephrine 10 MG/ML VIAL* 1 ML VIAL ONE (17:14)
[2018-11-20] MEDS ORDERED: Dexamethasone IV* 4 MG/ML 1 ML (4 MG) ONE (17:14)
[2018-11-20] MEDS ORDERED: Norepinephrine VIAL* 1 MG/ML 4 ML VIAL ONE (17:14)
[2018-11-20] MEDS ORDERED: Lidocaine 2% PF * 5 ML VIAL ONE (17:14)
[2018-11-20] MEDS ORDERED: Glycopyrrolate IV* 0.2 MG/ML 1 ML VIAL ONE (17:14)
[2018-11-20] MEDS ORDERED: Propofol* 10 MG/ML 20 ML BTL ONE (17:14)
[2018-11-20] MEDS ORDERED: Ondansetron INJ* 2 MG/ML VIAL ONE (17:14)
[2018-11-20] MEDS ORDERED: Neostigmine Methylsulfate* 1 MG/ML 10 ML VIAL (1 mg/ml) ONE (17:14)
[2018-11-20] MEDS ORDERED: Morphine 4 MG/ML VIAL (1 ml) 4 MG/ML VIAL IV PRN (17:38)
[2018-11-20] MEDS ORDERED: PROCHLORPERAZINE INJ 5 MG/ML 2 ML VIAL IV PRN (17:38)
[2018-11-20] MEDS ORDERED: Naloxone* 0.4 MG/ML 1 ML VIAL IV PRN (17:38)
[2018-11-20] MEDS ORDERED: DiMENhydriNATE IV* 50 MG/ML VIAL IV PUSH PRN (17:38)
[2018-11-20] MEDS: fentaNYL* 50 MCG/ML 2 ML VIAL (100 MCG VIAL) IV PRN ×2 (17:51→17:56)
[2018-11-20] MEDS ORDERED: Insulin LISPRO* 1 UNITS UNIT SUBCUT ONE (18:01)
--- NOTE | 2018-11-20 23:24 | PRO ---
DATE: 11/20/18 - ROOM #[id number] REFERRING PHYSICIAN: Dr. Edwin Rashid; Wing Leon MD * PROCEDURE: ERCP and balloon extraction, bile-duct gravel. INDICATION: This 73-year-old [place] male who had common bile duct stones extracted in July 2016, was admitted febrile with abnormal LFTs. Today, he actually feels better with much less pain and afebrile, although his bilirubin was slightly up and white count 31,000. Blood cultures have been positive and he is on Zosyn. Informed consent was obtained during discussion in the patient's room. The patient asked many questions. ENDOSCOPIST: Dr. Beltran. ANESTHESIA: [place]. FINDINGS: He was brought to the operating room. His last dose of heparin had been at 6 a.m. He was positioned in the semi-prone, slightly elevated position. Areas were padded. He was kept warm. ERCP: Esophagus - 20% views were normal. Stomach - 50% views were normal including good views in retroflexion of the cardia and EG junction. Duodenum - normal contours. 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 The area of the prior sphincterotomy was friable. Gentle probing did cannulate a structure at a 1 o'clock orientation. The guidewire was placed high up in the liver with bile flow. Dye injection did not show any filling defect and an approximately 9 to 10 mm duct. Sphincterotome was passed up high with flexing or elevation of the wire resulting in free bile flow. An exchange was made for a balloon. The balloon was passed up high and swept through at 10 mm. Some gravel came through, but no sizeable stone. Bile appeared dark and was not purulent. The cystic duct was not opacified. Dye drained readily. A second balloon cannulation and withdrawal was done. The air was going freely up into the duct and being stripped down by the balloon. Procedure was terminated. IMPRESSION: 1. Duodenal diverticulum. 2. Status post removal with sphincterotomy - free access to the duct and the air enters and exits. 3. Cholangitis - common duct has been cleared and there is no obstruction. Surgery is consulted and when stable cholecystectomy would appear indicated. [id number]/[facility] #: [id number] [facility]
[2018-11-21] MEDS: Insulin LISPRO* 1 UNITS UNIT SUBCUT SCH ×4 (00:28→18:31)
[2018-11-21] MEDS: Morphine 4 MG/ML VIAL (1 ml) 4 MG/ML VIAL IV SCH ×3 (02:10→11:12)
[2018-11-21] MEDS: ZOSYN 3.375 GM Q8H per EXTENDED INFUSION IVPB SCH ×6 (05:25→20:31)
[2018-11-21 06:46] LABS: Hematocrit 36 % (36-46); Hemoglobin 11.4 g/dL (14.0-18.0); Mean Corpuscular HGB Conc 32 g/dL (31-36); Mean Corpuscular Hemoglobin 25 pg (27-31); Mean Corpuscular Volume 79 fL (80-94); Mean Platelet Volume 9.7 fL (7.4-10.4); Platelet Count 173 10^3/uL (150-450); Red Blood Count 4.57 10^6 /uL (4.18-5.48); Red Cell Distribution Width 15 % (10.5-15)
[2018-11-21 07:02] LABS: Albumin 3.2 g/dL (3.2-5.2); Calcium 8.4 mg/dL (8.6-10.3); EGFR African American 81.6 (>60); EGFR Non-African American 67.4 (>60); Globulin 3.3 g/dL (2-4); Potassium 3.8 mmol/L (3.5-5.0); Total Bilirubin 1.7 mg/dL (0.2-1.0); Total Protein 6.5 g/dL (6.4-8.9)
[2018-11-21] MEDS: Pantoprazole IV* 40 MG IV SCH (09:33)
[2018-11-21] MEDS: Furosemide TAB* 20 MG PO SCH (09:34)
[2018-11-21] MEDS: Metoprolol Succinate XL TAB* 25 MG PO SCH (09:34)
[2018-11-21] MEDS: Atorvastatin* 40 MG TAB PO SCH (09:34)
[2018-11-21] MEDS: Lisinopril TAB* 5 MG PO SCH (09:34)
--- NOTE | 2018-11-21 11:10 | PN ---
Progress Note - Progress Note Date of Service: 11/21/18 SOAP: Subjective: Continues to feel much better Tolerating liquids and wants more No abdominal pain Objective: Temp Pulse Resp BP Pulse Ox 97.8 F 84 16 123/70 97 11/21/18 07:36 11/21/18 07:36 11/21/18 08:00 11/21/18 07:36 11/21/18 07:36 PEX: Comfortable Abd is soft and non-distended. No tenderness, no guarding Laboratory Results - last 24 hr 11/20/18 11/20/18 11/20/18 11:57 15:05 17:41 WBC RBC Hgb Hct MCV MCH MCHC RDW Plt Count MPV Sodium Potassium Chloride Carbon Dioxide Anion Gap BUN Creatinine Est GFR ( Amer) Est GFR (Non-Af Amer) BUN/Creatinine Ratio Glucose POC Glucose (mg/dL) 194 H 172 H 185 H Calcium Total Bilirubin AST ALT Alkaline Phosphatase Total Protein Albumin Globulin Albumin/Globulin Ratio 11/21/18 11/21/18 11/21/18 00:16 05:48 06:20 WBC 24.0 H RBC 4.57 Hgb 11.4 L Hct 36 MCV 79 L MCH 25 L MCHC 32 RDW 15 Plt Count 173 MPV 9.7 Sodium Potassium Chloride Carbon Dioxide Anion Gap BUN Creatinine Est GFR ( Amer) Est GFR (Non-Af Amer) BUN/Creatinine Ratio Glucose POC Glucose (mg/dL) 329 H 297 H Calcium Total Bilirubin AST ALT Alkaline Phosphatase Total Protein Albumin Globulin Albumin/Globulin Ratio 11/21/18 06:20 WBC RBC Hgb Hct MCV MCH MCHC RDW Plt Count MPV Sodium 143 Potassium 3.8 Chloride 106 Carbon Dioxide 24 Anion Gap 13 H BUN 27 H Creatinine 1.08 Est GFR ( Amer) 81.6 Est GFR (Non-Af Amer) 67.4 BUN/Creatinine Ratio 25.0 H Glucose 279 H POC Glucose (mg/dL) Calcium 8.4 L Total Bilirubin 1.70 H D AST 82 H ALT 161 H Alkaline Phosphatase 129 H Total Protein 6.5 Albumin 3.2 Globulin 3.3 Albumin/Globulin Ratio 1.0 Blood cultures reviewed-on appropriate antibiotics ERCP results reviewed-"gravel" removed and duct cleared. Care discussed with Dr. Beltran Assessment: Cholangitis with choledocholithiasis. ERCP yesterday-duct is clear. LFT's improving, sepsis resolved. This is second episode of cholangitis and despite US and MRCP that do not show cholelithiasis, recommend cholecystectomy to hopefully prevent recurrence. Plan: IV abx Clear liquids po Lap choly tomorrow Discussed with Dr. Beltran and Nighat Awad, hospitalist.
--- NOTE | 2018-11-21 12:43 | PN ---
Subjective Date of Service: 11/21/18 Interval History: VS: afebrile; VS WNL Labs: leukocytosis, LFTs all trending down; hgb low, but stable; elevated glucose, despite CL diet Pt states that he is feeling better, but does report some discomfort in LUQ. He is tolerating PO clear liquids, and states that he is hungry. He denies n/ v. He states he has not had a BM today. Objective Active Medications: Atorvastatin Calcium (Lipitor*) 40 mg PO DAILY [facility] Dextrose (D50w Syringe 50 Ml*) 12.5 gm IV PUSH .FOR FS < 60 - SS PRN Furosemide (Lasix Tab*) 20 mg PO DAILY [facility] Heparin Sodium (Porcine) (Heparin Flush Picc/Ml/Cvc(*)) 1 - 3 ml FLUSH 0600, 1800 [facility]; Protocol Piperacillin Sod/Tazobactam (Sod 3.375 gm/ Sodium Chloride) 100 mls @ 25 mls/ hr IVPB Q8H [facility] Norepinephrine Bitartrate (Levophed 16 Mcg/Ml Premix Bag*) 4,000 mcg in 250 mls @ 0 mls/hr IV .INITIAL RATE [facility]; Protocol Insulin Human Lispro (Humalog*) 0 units SUBCUT Q6HR [facility]; Protocol Lisinopril (Prinivil Tab*) 5 mg PO DAILY [facility] Metoprolol Succinate (Toprol Xl Tab*) 25 mg PO DAILY [facility] Morphine Sulfate (Morphine 4 Mg/Ml Vial (1 Ml)) 4 mg IV Q4HR [facility] Ondansetron HCl (Zofran Inj*) 4 mg IV Q6H PRN Pantoprazole Sodium (Protonix Iv*) 40 mg IV Q24H [facility] Pharmacy Consult (Zosyn Per Pharmacy*) 1 note FOLLOW UP .ZOSYN PER PHARMACY [facility] Vital Signs: Temp Pulse Resp BP Pulse Ox 98.1 F 81 18 124/70 97 11/21/18 15:19 11/21/18 15:19 11/21/18 15:11/21/18 15:11/21/18 16:00 Oxygen Devices in Use Now: None Appearance: Pt is sitting up in bed with HOB elevated. He appears well and in no acute distress. Eyes: PERRLA, - - Scleral icterus Ears/Nose/Mouth/Throat: NL Teeth, Lips, Gums, Clear Oropharnyx, - - Mucous membranes slightly dry Neck: NL Appearance and Movements; NL JVP, Trachea Midline Respiratory: Symmetrical Chest Expansion and Respiratory Effort, Clear to Auscultation Cardiovascular: NL Sounds; No Murmurs; No JVD, No Edema - Irregular rhythm, rate controlled. Tele: AF with rate control Abdominal: - - BS hypoactive in all quadrants; TTP at RUQ; negative callaway's sign. Without HSM. Extremities: No Edema, No Clubbing, Cyanosis Neurological: Alert and Oriented x 3 Result Diagrams: 11/22/18 05:33 11/22/18 05:33 Microbiology and Other Data: Microbiology 11/19/18 09:45 Aerobic Blood Culture - Final Blood Venous Enterococ Casseliflavus(Grp D) Esbl Escherichia Coli Anaerobic Blood Culture - Final Esbl Escherichia Coli Enterococ Casseliflavus(Grp D) 11/19/18 09:45 Aerobic Blood Culture - Final Blood Venous Esbl Escherichia Coli Anaerobic Blood Culture - Final Esbl Escherichia Coli 11/19/18 07:40 Urine Culture - Final Urine No Growth (<1,000 CFU/mL) 11/19/18 11:53 Nasal Screen MRSA (PCR) - Final Nasal Mrsa Not Detected Assess/Plan/Problems-Billing Assessment: Pt is a 73 yom with PMHx cardiomyopathy, AF, HTN, HLD, CAD, DMII who presents with cholangitis. ERCP 11/20, cholecystectomy planned for 11/22. - Patient Problems (1) Choledocholithiasis Comment: -Tolerating PO intake, decreased abd pain, LFTs trending down -ERCP yesterday with plan for cholecystectomy tomorrow (2) Diabetes mellitus Comment: -BS uncontrolled, despite NPO or CL diet and Lispro cc -Metformin on hold currently -Will continue Lispro; due to light diet, will not start Lantus at this time. Will consider metformin restart post-op (3) Atrial fibrillation Comment: -Rate controlled on metoprolol -Does not appear to be on anticoagulation at home -CHADS-VASc: 4, HAS-BLED: 2 (4) HTN (hypertension) Comment: -Adequately controlled -Continue home Lisinopril, Metoprolol, furosemide (5) Hyperlipidemia Comment: -Continue atorvastatin (6) Chronic systolic (congestive) heart failure Comment: -TTE 11/19/2018 EF 50-55% -Continue metoprolo, lisinopril, furosemide (7) DVT prophylaxis Comment: -Surgery planned for morning -SCDs in place (8) Full code status Status and Disposition: Inpatient. Surgery co-managing. Plan for freddy 11/22. Discharge when stable.
[2018-11-22] MEDS: Insulin LISPRO* 1 UNITS UNIT SUBCUT SCH ×5 (01:17→23:35)
[2018-11-22] MEDS: ZOSYN 3.375 GM Q8H per EXTENDED INFUSION IVPB SCH ×8 (05:40→20:56)
[2018-11-22 05:43] LABS: Hematocrit 37 % (42-52); Hemoglobin 12.3 g/dL (14.0-18.0); Mean Corpuscular HGB Conc 33 g/dL (31-36); Mean Corpuscular Hemoglobin 26 pg (27-31); Mean Corpuscular Volume 78 fL (80-94); Mean Platelet Volume 8.9 fL (7.4-10.4); Platelet Count 166 10^3/uL (150-450); Red Blood Count 4.76 10^6 /uL (4.18-5.48); Red Cell Distribution Width 14 % (10.5-15); White Blood Count 20.5 10^3/uL (3.5-10.8)
[2018-11-22 06:07] LABS: Albumin 3.3 g/dL (3.2-5.2); Albumin/Globulin Ratio 1.1 (1-3); BUN/Creatinine Ratio 21.2 (8-20); Calcium 8.9 mg/dL (8.6-10.3); EGFR African American 77.4 (>60); Globulin 3.1 g/dL (2-4); Potassium 3.5 mmol/L (3.5-5.0); Total Bilirubin 1.3 mg/dL (0.2-1.0); Total Protein 6.4 g/dL (6.4-8.9)
[2018-11-22] MEDS: Metoprolol Succinate XL TAB* 25 MG PO SCH (09:07)
[2018-11-22] MEDS: Atorvastatin* 40 MG TAB PO SCH (09:09)
[2018-11-22] MEDS: Lisinopril TAB* 5 MG PO SCH ×2 (09:10→17:42)
[2018-11-22] MEDS: Furosemide TAB* 20 MG PO SCH ×2 (09:10→18:17)
[2018-11-22] MEDS: Pantoprazole IV* 40 MG IV SCH (10:07)
--- NOTE | 2018-11-22 12:20 | PN ---
Subjective Date of Service: 11/22/18 Interval History: VS: WNL Labs: leukocytosis and LFT trending down, except Alk phos slightly up. H/H trending up. Pt states LUQ still painful, but RUQ pain is better. He is anxious for surgery. He has no other complaints. He denies CP, SOB, fever, chills, cough. He is urinating regularly and has regular BM. Pt follows with Dr. Rudolph, PCP, Dr. Gerardo, cardiology. Pt was taken off Elaquis 08/2017 duet to iliopsoas hematoma and decision for continued anticoagulation was deferred to Dr. Rudolph. Will continue to defer to pt's PCP regarding future management of AF anticoagulation. Objective Active Medications: Atorvastatin Calcium (Lipitor*) 40 mg PO DAILY [facility] Dextrose (D50w Syringe 50 Ml*) 12.5 gm IV PUSH .FOR FS < 60 - SS PRN Furosemide (Lasix Tab*) 20 mg PO DAILY [facility] Heparin Sodium (Porcine) (Heparin Flush Picc/Ml/Cvc(*)) 1 - 3 ml FLUSH 0600, 1800 [facility]; Protocol Piperacillin Sod/Tazobactam (Sod 3.375 gm/ Sodium Chloride) 100 mls @ 25 mls/ hr IVPB Q8H [facility] Norepinephrine Bitartrate (Levophed 16 Mcg/Ml Premix Bag*) 4,000 mcg in 250 mls @ 0 mls/hr IV .INITIAL RATE [facility]; Protocol Insulin Human Lispro (Humalog*) 0 units SUBCUT Q6HR [facility]; Protocol Lisinopril (Prinivil Tab*) 5 mg PO DAILY [facility] Metoprolol Succinate (Toprol Xl Tab*) 25 mg PO DAILY [facility] Morphine Sulfate (Morphine Inj (Syringe))*) 2 mg IV Q4HR PRN Ondansetron HCl (Zofran Inj*) 4 mg IV Q6H PRN Pantoprazole Sodium (Protonix Iv*) 40 mg IV Q24H [facility] Pharmacy Consult (Zosyn Per Pharmacy*) 1 note FOLLOW UP .ZOSYN PER PHARMACY [facility] Vital Signs: Temp Pulse Resp BP Pulse Ox 98.1 F 82 18 141/79 97 11/22/18 11:32 11/22/18 11:32 11/22/18 11:32 11/22/18 11:32 11/22/18 11:32 Oxygen Devices in Use Now: None Appearance: Pt is sitting up in bed with HOB elevated. He appears well and is curious about surgery. There is a bit of a language barrier, but pt follows instructions, responds appropriately, and seems to understand discussion. Eyes: PERRLA, - - Icterus Ears/Nose/Mouth/Throat: Clear Oropharnyx, Mucous Membranes Moist Neck: NL Appearance and Movements; NL JVP, Trachea Midline Respiratory: Symmetrical Chest Expansion and Respiratory Effort, Clear to Auscultation Cardiovascular: NL Sounds; No Murmurs; No JVD, No Edema - Irregular rhythm, rate controlled Abdominal: No Hepatosplenomegaly, - - BS hypoactive. TTP in LUQ; slight tenderness RUQ; no distention Extremities: No Edema, No Clubbing, Cyanosis Neurological: Alert and Oriented x 3 Result Diagrams: 11/22/18 05:33 11/22/18 05:33 Microbiology and Other Data: Microbiology 11/19/18 09:45 Aerobic Blood Culture - Final Blood Venous Enterococ Casseliflavus(Grp D) Esbl Escherichia Coli Anaerobic Blood Culture - Final Esbl Escherichia Coli Enterococ Casseliflavus(Grp D) 11/19/18 09:45 Aerobic Blood Culture - Final Blood Venous Esbl Escherichia Coli Anaerobic Blood Culture - Final Esbl Escherichia Coli 11/19/18 07:40 Urine Culture - Final Urine No Growth (<1,000 CFU/mL) 11/19/18 11:53 Nasal Screen MRSA (PCR) - Final Nasal Mrsa Not Detected Assess/Plan/Problems-Billing Assessment: Pt is a 73 yom with PMHx cardiomyopathy, AF, HTN, HLD, CAD, DMII who presents with cholangitis. ERCP 11/20, cholecystectomy planned for 11/22. - Patient Problems (1) Choledocholithiasis Comment: -Tolerating PO intake, decreased abd pain, LFTs trending down with slight increase in Alk Phos today -Recent ERCP with plan for cholecystectomy today (2) Diabetes mellitus Comment: -BS trending down -Metformin on hold currently -Will continue Lispro. Will consider Metformin restart post-operatively (3) Atrial fibrillation Comment: -Rate controlled on metoprolol -Was on Eliquis in past, d/c 08/2017 due to iliopsoas hematoma. Cardiology deferred future anticoagulation decisions to PCP. Will continue to defer to PCP. -CHADS-VASc: 4, HAS-BLED: 2 (4) HTN (hypertension) Comment: -Adequately controlled -Continue home Lisinopril, Metoprolol, furosemide (5) Hyperlipidemia Comment: -Continue atorvastatin (6) Chronic systolic (congestive) heart failure Comment: -TTE 11/19/2018 EF 50-55% -Continue metoprolol, lisinopril, furosemide (7) DVT prophylaxis Comment: -Surgery planned for morning -SCDs in place (8) Full code status Status and Disposition: Inpatient. Surgery co-managing. Plan for freddy 11/22. Discharge when stable.
[2018-11-22] MEDS ORDERED: Buffered Lidocaine 1% SYRIN* 1 ML/SYRINGE INTRADERM ONE (14:02)
[2018-11-22] MEDS ORDERED: DiMENhydriNATE IV* 50 MG/ML VIAL IV PUSH PRN (14:03)
[2018-11-22] MEDS ORDERED: Ondansetron INJ* 2 MG/ML VIAL IV PRN (14:03)
[2018-11-22] MEDS ORDERED: diPHENhydraMINE IV* 50 MG/ML 1 ml VIAL (BENADRYL) IV PRN (14:03)
[2018-11-22] MEDS ORDERED: Levalbuterol 0.63MG/3ML NEB* UNIT OF USE INH PRN (14:03)
[2018-11-22] MEDS ORDERED: Naloxone* 0.4 MG/ML 1 ML VIAL IV PRN (14:03)
[2018-11-22] MEDS ORDERED: fentaNYL* 50 MCG/ML 2 ML VIAL (100 MCG VIAL) ONE ×3 (14:33→19:03)
[2018-11-22] MEDS ORDERED: Midazolam* 1 MG/ML 2 ML VIAL (2 MG) ONE (14:34)
[2018-11-22] MEDS ORDERED: Lactated Ringers 1000 ML Bag* 1,000 ML IV SCH (15:00)
[2018-11-22] MEDS ORDERED: Famotidine IV* 10 MG/ML 2 ML (20 mg) ONE (15:19)
[2018-11-22] MEDS ORDERED: Rocuronium* 10 MG/ML VIAL ONE (15:40)
[2018-11-22] MEDS ORDERED: Dexamethasone IV* 4 MG/ML 1 ML (4 MG) ONE (15:53)
[2018-11-22] MEDS ORDERED: Propofol* 10 MG/ML 20 ML BTL ONE (15:53)
[2018-11-22] MEDS ORDERED: Bupivacaine 0.25% EPI 200,000* 30 ML SDV ONE (16:00)
[2018-11-22] MEDS ORDERED: Metoprolol Tartrate IV* 1 MG/ML 5 ML VIAL ONE ×2 (16:24→17:52)
[2018-11-22] MEDS: fentaNYL* 50 MCG/ML 2 ML VIAL (100 MCG VIAL) IV PRN ×5 (17:29→19:04)
[2018-11-22] MEDS ORDERED: hydrALAZINE IV* 20 MG/ML VIAL IV SLOW PU PRN (18:24)
[2018-11-22] MEDS ORDERED: hydrALAZINE IV* 20 MG/ML VIAL ONE (18:31)
[2018-11-22] MEDS ORDERED: Ondansetron INJ* 2 MG/ML VIAL ONE (19:03)
[2018-11-22] MEDS ORDERED: oxyCODONE/Acetamin 5/325 MG* TAB PO PRN (20:46)
[2018-11-22] MEDS ORDERED: Acetaminophen TAB* 325 MG PO PRN (20:48)
[2018-11-22] MEDS: Morphine INJ* 2 MG/ML 1 ML SYRINGE (TWO MG - NEW SYRINGE VERSION) IV PRN (23:35)
[2018-11-23] MEDS: Lactated Ringers 1000 ML Bag* 1,000 ML IV SCH (02:39)
--- NOTE | 2018-11-23 03:27 | OP ---
CC: Dr. Rudolph * DATE OF OPERATION: 11/22/18 - ROOM #411 DATE OF : 49 SURGEON: Weston Haynes MD SENIOR EXECUTIVE COMPENSATION ANALYST: Rosita Jaimes NP ANESTHESIOLOGIST: Dr. Elder ANESTHESIA: General anesthetic, local infiltration. PRE-OP DIAGNOSIS: Cholangitis. POST-OP DIAGNOSIS: Cholangitis. OPERATIVE PROCEDURE: Laparoscopic cholecystectomy. DESCRIPTION OF PROCEDURE: The patient was supine on the operating table. After adequate general anesthetic, compression stockings, Remy Hugger warmer, and intravenous antibiotics, the abdomen was clipped and prepped with antiseptic , draped in sterile fashion. Local infiltrative anesthesia was administered. A small umbilical incision was created. Blunt port cannula was placed. Insufflation was carried out with carbon dioxide. Additional cannulae, 12 mm subxiphoid and 5 mm right upper quadrant and right anterior axillary line were placed through small stab wounds under direct vision. The gallbladder had multiple adhesions over the surface and these were taken down bit by bit until the gallbladder was tented upward. Areolar tissue was taken down off the cystic duct and cystic artery. The cystic duct was kind of fibrotic. It was well exposed and it was taken right adjacent to the neck of the gallbladder using an endo-TIFFANIE stapler with 30 mm campbell cartridge. Cystic artery was clipped and divided. The gallbladder was taken off the liver bed using electrocautery. There was a small amount of bile spillage, but no stone spillage. The gallbladder was removed through the subxiphoid port without difficulty and was sent in formalin to pathologic evaluation. The operative field was irrigated with warm saline solution. Free fluid was suctioned out. Everything was again checked and hemostasis was good. The cannulae were removed. Pneumoperitoneum allowed to escape. Umbilical fascia and epigastric fascia were closed with 0 Vicryl and skin with 5-0 Vicryl in all cases followed by Steri-Strips. He tolerated the procedure well, was awakened, and brought to Recovery in good condition. COMPLICATIONS: No complications. DRAINS: No drains. SPECIMEN: Pathologic specimen was gallbladder. COUNTS: Sponge and instrument counts correct. ESTIMATED BLOOD LOSS: 30 to 50 mL. [id number]/[facility] #: [id number] [facility]
[2018-11-23] MEDS: ZOSYN 3.375 GM Q8H per EXTENDED INFUSION IVPB SCH ×6 (05:15→20:46)
[2018-11-23] MEDS: Insulin LISPRO* 1 UNITS UNIT SUBCUT SCH ×3 (05:22→17:53)
[2018-11-23 05:55] LABS: Hematocrit 39 % (42-52); Hemoglobin 12.3 g/dL (14.0-18.0); Mean Corpuscular HGB Conc 32 g/dL (31-36); Mean Corpuscular Hemoglobin 25 pg (27-31); Mean Corpuscular Volume 79 fL (80-94); Mean Platelet Volume 9.2 fL (7.4-10.4); Platelet Count 167 10^3/uL (150-450); Red Blood Count 4.95 10^6 /uL (4.18-5.48); Red Cell Distribution Width 15 % (10.5-15); White Blood Count 13.6 10^3/uL (3.5-10.8)
[2018-11-23 06:29] LABS: Albumin 3.2 g/dL (3.2-5.2); BUN/Creatinine Ratio 21.5 (8-20); Calcium 8.7 mg/dL (8.6-10.3); EGFR African American 82.4 (>60); EGFR Non-African American 68.1 (>60); Globulin 3.1 g/dL (2-4); Potassium 3.8 mmol/L (3.5-5.0); Total Bilirubin 1.2 mg/dL (0.2-1.0); Total Protein 6.3 g/dL (6.4-8.9)
[2018-11-23] MEDS: Morphine INJ* 2 MG/ML 1 ML SYRINGE (TWO MG - NEW SYRINGE VERSION) IV PRN (08:25)
[2018-11-23] MEDS: Lisinopril TAB* 5 MG PO SCH (08:30)
[2018-11-23] MEDS: Metoprolol Succinate XL TAB* 25 MG PO SCH (08:30)
[2018-11-23] MEDS: Furosemide TAB* 20 MG PO SCH (08:30)
[2018-11-23] MEDS: Atorvastatin* 40 MG TAB PO SCH (08:30)
[2018-11-23] MEDS: Pantoprazole IV* 40 MG IV SCH (08:30)
--- NOTE | 2018-11-23 12:55 | PN ---
Progress Note - Progress Note Date of Service: 11/23/18 Note: POD#1 s/p lap freddy Afeb, vs OK Voiding, khushbu po's Min pain Abd soft, non-tender Doing well s/p lap freddy Disch on oral abx whenever medically able F/U office 1 week.
--- NOTE | 2018-11-23 13:16 | PN ---
Subjective Date of Service: 11/23/18 Interval History: VS: WNL; BP elevated post-op yesterday, but now normotensive Labs: leukocytosis trending down, H/H low, but stabilizing; LFTs with slight increas, except bili, which has decreased Pt with small amount of abdominal pain, but states he is feeling OK. Tolerating PO intake; had BM today. Denies CP, SOB, n/v, pain in LE. Objective Active Medications: Acetaminophen (Tylenol Tab*) 650 mg PO Q4H PRN Atorvastatin Calcium (Lipitor*) 40 mg PO DAILY [facility] Dextrose (D50w Syringe 50 Ml*) 12.5 gm IV PUSH .FOR FS < 60 - SS PRN Furosemide (Lasix Tab*) 20 mg PO DAILY [facility] Heparin Sodium (Porcine) (Heparin Flush Picc/Ml/Cvc(*)) 1 - 3 ml FLUSH 0600, 1800 [facility]; Protocol Hydralazine HCl (Apresoline Iv*) 5 mg IV SLOW PU Q6H PRN Piperacillin Sod/Tazobactam (Sod 3.375 gm/ Sodium Chloride) 100 mls @ 25 mls/ hr IVPB Q8H [facility] Lactated Ringer's (Lactated Ringers 1000 Ml Bag*) 1,000 mls @ 33 mls/hr IV PER RATE [facility] Insulin Human Lispro (Humalog*) 0 units SUBCUT Q6HR [facility]; Protocol Lisinopril (Prinivil Tab*) 5 mg PO DAILY [facility] Metoprolol Succinate (Toprol Xl Tab*) 25 mg PO DAILY [facility] Morphine Sulfate (Morphine Inj (Syringe))*) 2 mg IV Q4HR PRN Ondansetron HCl (Zofran Inj*) 4 mg IV Q6H PRN Oxycodone/Acetaminophen (Percocet 5/325 Tab*) 1 tab PO Q4H PRN Pantoprazole Sodium (Protonix Iv*) 40 mg IV Q24H [facility] Pharmacy Consult (Zosyn Per Pharmacy*) 1 note FOLLOW UP .ZOSYN PER PHARMACY [facility] Vital Signs: Temp Pulse Resp BP Pulse Ox 97.9 F 59 18 156/88 99 11/23/18 11:18 11/23/18 11:18 11/23/18 11:18 11/23/18 11:18 11/23/18 11:18 Oxygen Devices in Use Now: None Appearance: Pt is laying flat in bed. He is pleasant and cooperative. He is in no acute disress. Eyes: No Scleral Icterus, PERRLA Ears/Nose/Mouth/Throat: NL Teeth, Lips, Gums, Clear Oropharnyx, Mucous Membranes Moist Neck: NL Appearance and Movements; NL JVP, Trachea Midline Respiratory: Symmetrical Chest Expansion and Respiratory Effort, Clear to Auscultation Cardiovascular: NL Sounds; No Murmurs; No JVD, No Edema - Irregular rhythm, rate controlled Abdominal: - - BS in all quadrants; slight distention; mild TTP; surgical site x4 with dried blood, no drainage or erythema Extremities: No Edema, No Clubbing, Cyanosis Neurological: Alert and Oriented x 3 Result Diagrams: 11/23/18 05:30 11/23/18 05:30 Microbiology and Other Data: Microbiology 11/19/18 09:45 Aerobic Blood Culture - Final Blood Venous Enterococ Casseliflavus(Grp D) Esbl Escherichia Coli Anaerobic Blood Culture - Final Esbl Escherichia Coli Enterococ Casseliflavus(Grp D) 11/19/18 09:45 Aerobic Blood Culture - Final Blood Venous Esbl Escherichia Coli Anaerobic Blood Culture - Final Esbl Escherichia Coli 11/19/18 07:40 Urine Culture - Final Urine No Growth (<1,000 CFU/mL) 11/19/18 11:53 Nasal Screen MRSA (PCR) - Final Nasal Mrsa Not Detected Assess/Plan/Problems-Billing Assessment: Pt is a 73 yom with PMHx cardiomyopathy, AF, HTN, HLD, CAD, DMII who presents with cholangitis. ERCP 11/20, cholecystectomy planned for 11/22. - Patient Problems (1) Choledocholithiasis Comment: -POD1 -Tolerating PO intake, decreased abd pain, LFT with slight elevation -Will monitor LFT tomorrow -Likely d/c in a.m. (2) Diabetes mellitus Comment: -BS trending down -Metformin on hold currently -Continue Lispro -Restart Metformin at discharge (3) Atrial fibrillation Comment: -Rate controlled on metoprolol -Was on Eliquis in past, d/c 08/2017 due to iliopsoas hematoma. Cardiology deferred future anticoagulation decisions to PCP. Will continue to defer to PCP. -CHADS-VASc: 4, HAS-BLED: 2 (4) HTN (hypertension) Comment: -Elevated post-operatively, now with adequate control -Continue home Lisinopril, Metoprolol, furosemide (5) Hyperlipidemia Comment: -Continue atorvastatin (6) Chronic systolic (congestive) heart failure Comment: -TTE 11/19/2018 EF 50-55% -Continue metoprolol, lisinopril, furosemide (7) DVT prophylaxis Comment: -Continue SCDs (8) Full code status Status and Disposition: Inpatient. Surgery co-managing. Plan for freddy 11/22. Discharge when stable.
[2018-11-24] MEDS: Insulin LISPRO* 1 UNITS UNIT SUBCUT SCH ×4 (00:03→18:18)
[2018-11-24] MEDS: ZOSYN 3.375 GM Q8H per EXTENDED INFUSION IVPB SCH ×6 (05:15→20:30)
[2018-11-24] MEDS: Lactated Ringers 1000 ML Bag* 1,000 ML IV SCH (05:23)
[2018-11-24 05:38] LABS: Hematocrit 36 % (42-52); Hemoglobin 11.6 g/dL (14.0-18.0); Mean Corpuscular HGB Conc 32 g/dL (31-36); Mean Corpuscular Hemoglobin 25 pg (27-31); Mean Corpuscular Volume 78 fL (80-94); Mean Platelet Volume 9.6 fL (7.4-10.4); Platelet Count 160 10^3/uL (150-450); Red Blood Count 4.63 10^6 /uL (4.18-5.48); Red Cell Distribution Width 14 % (10.5-15); White Blood Count 11.5 10^3/uL (3.5-10.8)
[2018-11-24 05:56] LABS: Albumin 3.1 g/dL (3.2-5.2); Albumin/Globulin Ratio 1.1 (1-3); BUN/Creatinine Ratio 17.3 (8-20); Calcium 8.6 mg/dL (8.6-10.3); EGFR African American 113.7 (>60); EGFR Non-African American 93.9 (>60); Globulin 2.9 g/dL (2-4); Potassium 3.4 mmol/L (3.5-5.0); Total Bilirubin 1.4 mg/dL (0.2-1.0)
--- NOTE | 2018-11-24 08:36 | PN ---
Progress Note - Progress Note Date of Service: 11/24/18 Note: Surgery Progress Note S: Patient has no complaints. No pain, tolerating diet, wants to go home. O: Vital Signs: Temp Pulse Resp BP Pulse Ox 98.0 F 62 19 168/91 98 11/24/18 03:28 11/24/18 03:28 11/24/18 03:28 11/24/18 03:28 11/24/18 03:28 Intake & Output 11/23/18 11/24/18 11/24/18 22:59 06:59 14:59 Intake Total 480 0 Balance 480 0 Intake: Oral 480 0 Other: Estimated Void Large # Bowel Movements 0 # Voids 1 Laboratory Results - last 24 hr 11/23/18 11/23/18 11/23/18 11:39 17:17 23:53 WBC RBC Hgb Hct MCV MCH MCHC RDW Plt Count MPV Sodium Potassium Chloride Carbon Dioxide Anion Gap BUN Creatinine Est GFR ( Amer) Est GFR (Non-Af Amer) BUN/Creatinine Ratio Glucose POC Glucose (mg/dL) 230 H 249 H 179 H Calcium Total Bilirubin AST ALT Alkaline Phosphatase Total Protein Albumin Globulin Albumin/Globulin Ratio 11/24/18 11/24/18 11/24/18 05:07 05:30 05:30 WBC 11.5 H RBC 4.63 Hgb 11.6 L Hct 36 L MCV 78 L MCH 25 L MCHC 32 RDW 14 Plt Count 160 MPV 9.6 Sodium 138 Potassium 3.4 L Chloride 104 Carbon Dioxide 30 Anion Gap 4 BUN 14 Creatinine 0.81 Est GFR ( Amer) 113.7 Est GFR (Non-Af Amer) 93.9 BUN/Creatinine Ratio 17.3 Glucose 144 H POC Glucose (mg/dL) 142 H Calcium 8.6 Total Bilirubin 1.40 H AST 72 H ALT 141 H Alkaline Phosphatase 151 H Total Protein 6.0 L Albumin 3.1 L Globulin 2.9 Albumin/Globulin Ratio 1.1 Physical exam: abdomen- soft, non tender, minimally distended. incisions c/d/i with steristrips in place A/P: 73M POD 2 from laparoscopic cholecystsectomy for choledocholithiasis, sp ERCP, doing well. - After DC please follow up with [facility] in 1[facility]2 weeks - Bilirubin slightly elevated today from yesterday (1.4 today) but would not continue checking LFTs unless patient were symptomatic as it is not uncommon for LFTs to increase slightly after cholecystectomy, ERCP with sphincterotomy. Patient should have return precautions upon discharge.
[2018-11-24] MEDS: Atorvastatin* 40 MG TAB PO SCH (09:14)
[2018-11-24] MEDS: Pantoprazole IV* 40 MG IV SCH (09:14)
[2018-11-24] MEDS: Potassium Chlor TAB* 20 MEQ TAB.ER PO SCH ×3 (09:14→17:55)
[2018-11-24] MEDS: Metoprolol Succinate XL TAB* 25 MG PO SCH (09:14)
[2018-11-24] MEDS: Lisinopril TAB* 5 MG PO SCH (09:14)
[2018-11-24] MEDS: Furosemide TAB* 20 MG PO SCH (09:14)
--- NOTE | 2018-11-24 10:40 | PN ---
Subjective Date of Service: 11/24/18 Interval History: VS: HTN Lab: leukocytosis- trending down; anemia- likely post-operative; hypokalemia- repleted; LFT- trending down, except increase in bili Pt is feeling well. He denies abdominal pain, n/v/d/c. States he is having BM daily and urinating well. He states that he is eating and drinking well. He is eager to go home. Objective Active Medications: Acetaminophen (Tylenol Tab*) 650 mg PO Q4H PRN Atorvastatin Calcium (Lipitor*) 40 mg PO DAILY [facility] Dextrose (D50w Syringe 50 Ml*) 12.5 gm IV PUSH .FOR FS < 60 - SS PRN Furosemide (Lasix Tab*) 20 mg PO DAILY [facility] Heparin Sodium (Porcine) (Heparin Flush Picc/Ml/Cvc(*)) 1 - 3 ml FLUSH 0600, 1800 [facility]; Protocol Hydralazine HCl (Apresoline Iv*) 5 mg IV SLOW PU Q6H PRN Piperacillin Sod/Tazobactam (Sod 3.375 gm/ Sodium Chloride) 100 mls @ 25 mls/ hr IVPB Q8H [facility] Lactated Ringer's (Lactated Ringers 1000 Ml Bag*) 1,000 mls @ 33 mls/hr IV PER RATE [facility] Insulin Human Lispro (Humalog*) 0 units SUBCUT Q6HR [facility]; Protocol Lisinopril (Prinivil Tab*) 5 mg PO DAILY [facility] Metoprolol Succinate (Toprol Xl Tab*) 25 mg PO DAILY [facility] Morphine Sulfate (Morphine Inj (Syringe))*) 2 mg IV Q4HR PRN Ondansetron HCl (Zofran Inj*) 4 mg IV Q6H PRN Oxycodone/Acetaminophen (Percocet 5/325 Tab*) 1 tab PO Q4H PRN Pantoprazole Sodium (Protonix Iv*) 40 mg IV Q24H [facility] Pharmacy Consult (Zosyn Per Pharmacy*) 1 note FOLLOW UP .ZOSYN PER PHARMACY [facility] Potassium Chloride (Klor Con Er Tab*) 20 meq PO Q2H [facility] Vital Signs: Temp Pulse Resp BP Pulse Ox 98.3 F 85 18 153/90 99 11/24/18 07:35 11/24/18 07:35 11/24/18 10:41 11/24/18 07:35 11/24/18 10:40 Oxygen Devices in Use Now: None Appearance: Pt is pleasant 73yom who is laying flat in bed. He is in no acute distress and appears well. Eyes: No Scleral Icterus, PERRLA Ears/Nose/Mouth/Throat: NL Teeth, Lips, Gums, Clear Oropharnyx, Mucous Membranes Moist Neck: NL Appearance and Movements; NL JVP, Trachea Midline Respiratory: Symmetrical Chest Expansion and Respiratory Effort, Clear to Auscultation Cardiovascular: NL Sounds; No Murmurs; No JVD, No Edema - Irregular rhythm, rate controlled Abdominal: NL Sounds; No Tenderness; No Distention, No Hepatosplenomegaly, - - Surgical site x4 with steri-strips in place. No erythema, drainage. Some dried blood. Extremities: No Edema, No Clubbing, Cyanosis Neurological: Alert and Oriented x 3 Result Diagrams: 11/25/18 05:00 11/25/18 05:00 Microbiology and Other Data: Microbiology 11/19/18 09:45 Aerobic Blood Culture - Final Blood Venous Enterococ Casseliflavus(Grp D) Esbl Escherichia Coli Anaerobic Blood Culture - Final Esbl Escherichia Coli Enterococ Casseliflavus(Grp D) 11/19/18 09:45 Aerobic Blood Culture - Final Blood Venous Esbl Escherichia Coli Anaerobic Blood Culture - Final Esbl Escherichia Coli 11/19/18 07:40 Urine Culture - Final Urine No Growth (<1,000 CFU/mL) 11/19/18 11:53 Nasal Screen MRSA (PCR) - Final Nasal Mrsa Not Detected Assess/Plan/Problems-Billing Assessment: Pt is a 73 yom with PMHx cardiomyopathy, AF, HTN, HLD, CAD, DMII who presents with cholangitis. ERCP 11/20, cholecystectomy planned for 11/22. - Patient Problems (1) Choledocholithiasis Comment: -POD2 cholecystecomy -Tolerating PO intake, decreased abd pain, LFT trending down, with increase in bili -Will monitor LFT tomorrow -BC show ESBL, Enterococcus- treated with Zosyn since 11/19. BC now clear. Continue Zosyn for total of 7 days -Likely d/c on Monday after 7 days of Zosyn; discharge on Augmentin x3d, per [facility] recommendations (2) Diabetes mellitus Comment: -BS trending down -Metformin on hold currently -Continue Lispro -Restart Metformin at discharge (3) Atrial fibrillation Comment: -Rate controlled on metoprolol -Was on Eliquis in past, d/c 08/2017 due to iliopsoas hematoma. Cardiology deferred future anticoagulation decisions to PCP. Will continue to defer to PCP. -CHADS-VASc: 4, HAS-BLED: 2 (4) HTN (hypertension) Comment: -Elevated post-operatively, now with adequate control -Continue home Lisinopril, Metoprolol, furosemide (5) Hyperlipidemia Comment: -Continue atorvastatin (6) Chronic systolic (congestive) heart failure Comment: -TTE 11/19/2018 EF 50-55% -Continue metoprolol, lisinopril, furosemide (7) DVT prophylaxis Comment: -Continue SCDs (8) Full code status Status and Disposition: Inpatient. Surgery co-managing. Yordy 11/[address] Montoya, ID, at [place], who recommended continueing Zosyn x7 days inpatient with discharge on Augmentin for 3 more days.
[2018-11-25] MEDS: Insulin LISPRO* 1 UNITS UNIT SUBCUT SCH ×4 (00:16→18:13)
[2018-11-25] MEDS: ZOSYN 3.375 GM Q8H per EXTENDED INFUSION IVPB SCH ×6 (05:00→20:55)
[2018-11-25 05:21] LABS: Hematocrit 39 % (42-52); Hemoglobin 12.3 g/dL (14.0-18.0); Mean Corpuscular HGB Conc 32 g/dL (31-36); Mean Corpuscular Hemoglobin 25 pg (27-31); Mean Corpuscular Volume 78 fL (80-94); Mean Platelet Volume 9.2 fL (7.4-10.4); Platelet Count 163 10^3/uL (150-450); Red Blood Count 4.92 10^6 /uL (4.18-5.48); Red Cell Distribution Width 14 % (10.5-15); White Blood Count 13.5 10^3/uL (3.5-10.8)
[2018-11-25 05:32] LABS: Albumin 3.4 g/dL (3.2-5.2); BUN/Creatinine Ratio 11.6 (8-20); Calcium 9.2 mg/dL (8.6-10.3); EGFR African American 106.1 (>60); EGFR Non-African American 87.7 (>60); Globulin 3.4 g/dL (2-4); Total Bilirubin 1.7 mg/dL (0.2-1.0); Total Protein 6.8 g/dL (6.4-8.9)
[2018-11-25] MEDS: Lactated Ringers 1000 ML Bag* 1,000 ML IV SCH (10:01)
[2018-11-25] MEDS: Furosemide TAB* 20 MG PO SCH (10:03)
[2018-11-25] MEDS: Atorvastatin* 40 MG TAB PO SCH (10:03)
[2018-11-25] MEDS: Lisinopril TAB* 5 MG PO SCH (10:03)
[2018-11-25] MEDS: Pantoprazole IV* 40 MG IV SCH (10:03)
[2018-11-25] MEDS: Metoprolol Succinate XL TAB* 25 MG PO SCH (10:03)
--- NOTE | 2018-11-25 14:41 | PN ---
Subjective Date of Service: 11/25/18 Interval History: Pt feels well, denies abd pain. Seen by Reema Ochoa today who anticipates d/c tomorrow(as per pt) Objective Active Medications: Acetaminophen (Tylenol Tab*) 650 mg PO Q4H PRN PRN Reason: PAIN - MILD, OR TEMP >101 Atorvastatin Calcium (Lipitor*) 40 mg PO DAILY [facility] Last Admin: 11/25/18 10:03 Dose: 40 mg Dextrose (D50w Syringe 50 Ml*) 12.5 gm IV PUSH .FOR FS < 60 - SS PRN PRN Reason: FS < 60 Furosemide (Lasix Tab*) 20 mg PO DAILY [facility] Last Admin: 11/25/18 10:03 Dose: 20 mg Heparin Sodium (Porcine) (Heparin Flush Picc/Ml/Cvc(*)) 1 - 3 ml FLUSH 0600, 1800 [facility]; Protocol Last Admin: 11/25/18 05:06 Dose: 1 ml Hydralazine HCl (Apresoline Iv*) 5 mg IV SLOW PU Q6H PRN PRN Reason: sbp >170 Last Admin: 11/22/18 18:33 Dose: 5 mg Piperacillin Sod/Tazobactam (Sod 3.375 gm/ Sodium Chloride) 100 mls @ 25 mls/ hr IVPB Q8H [facility] Last Admin: 11/25/18 13:17 Dose: 25 mls/hr Insulin Human Lispro (Humalog*) 0 units SUBCUT Q6HR [facility]; Protocol Last Admin: 11/25/18 13:17 Dose: 8 unit Lisinopril (Prinivil Tab*) 5 mg PO DAILY [facility] Last Admin: 11/25/18 10:03 Dose: 5 mg Metoprolol Succinate (Toprol Xl Tab*) 25 mg PO DAILY [facility] Last Admin: 11/25/18 10:03 Dose: 25 mg Morphine Sulfate (Morphine Inj (Syringe))*) 2 mg IV Q4HR PRN PRN Reason: PAIN Last Admin: 11/23/18 08:25 Dose: 2 mg Ondansetron HCl (Zofran Inj*) 4 mg IV Q6H PRN PRN Reason: NAUSEA Oxycodone/Acetaminophen (Percocet 5/325 Tab*) 1 tab PO Q4H PRN PRN Reason: PAIN Last Admin: 11/23/18 01:39 Dose: 1 tab Pantoprazole Sodium (Protonix Iv*) 40 mg IV Q24H [facility] Last Admin: 11/25/18 10:03 Dose: 40 mg Pharmacy Consult (Zosyn Per Pharmacy*) 1 note FOLLOW UP .ZOSYN PER PHARMACY [facility] Vital Signs - 8 hr 11/25/18 11/25/18 11/25/18 07:28 08:00 11:18 Temperature 98.1 F 97.4 F Pulse Rate 85 94 Respiratory 20 16 16 Rate Blood Pressure 147/90 148/88 (mmHg) O2 Sat by Pulse 98 100 Oximetry Oxygen Devices in Use Now: None Appearance: 73 yo M in nAD, AAOx3 Eyes: No Scleral Icterus, PERRLA Ears/Nose/Mouth/Throat: NL Teeth, Lips, Gums, Mucous Membranes Moist Neck: NL Appearance and Movements; NL JVP, Trachea Midline Respiratory: Symmetrical Chest Expansion and Respiratory Effort, Clear to Auscultation Cardiovascular: NL Sounds; No Murmurs; No JVD, - - irregular Abdominal: - - slightly distended, soft, NT BS+, post op incisions steri stripped, no evidence of dehiscence Lymphatic: No Cervical Adenopathy Extremities: No Edema Skin: No Rash or Ulcers, No Nodules or Sclerosis Neurological: Alert and Oriented x 3, NL Muscle Strength and Tone Result Diagrams: 11/25/18 05:00 11/25/18 05:00 Microbiology and Other Data: Microbiology 11/19/18 09:45 Aerobic Blood Culture - Final Blood Venous Enterococ Casseliflavus(Grp D) Esbl Escherichia Coli Anaerobic Blood Culture - Final Esbl Escherichia Coli Enterococ Casseliflavus(Grp D) 11/19/18 09:45 Aerobic Blood Culture - Final Blood Venous Esbl Escherichia Coli Anaerobic Blood Culture - Final Esbl Escherichia Coli 11/19/18 07:40 Urine Culture - Final Urine No Growth (<1,000 CFU/mL) 11/19/18 11:53 Nasal Screen MRSA (PCR) - Final Nasal Mrsa Not Detected Assess/Plan/Problems-Billing Assessment: Pt is a 73 yom with PMHx cardiomyopathy, AF, HTN, HLD, CAD, DMII who presents with cholangitis. ERCP 11/20, s/p cholecystectomy 11/22. - Patient Problems (1) Choledocholithiasis Comment: -s/p cholecystecomy 11/22/18 -Tolerating PO intake, decreased abd pain. LFT's up-but as per Dr. Seymour -should follow clinical course post op -BC show ESBL, Enterococcus- treated with Zosyn since 11/19. BC now clear. Continue Zosyn for total of 7 days -Likely d/c on Monday after 7 days of Zosyn; discharge on Augmentin x3d, per [facility] recommendations (2) Diabetes mellitus Comment: -BS trending down -Metformin on hold currently -Continue Lispro -Restart Metformin at discharge (3) Hyperlipidemia Comment: -Continue atorvastatin (4) Atrial fibrillation Comment: -Rate controlled on metoprolol -Was on Eliquis in past, d/c 08/2017 due to iliopsoas hematoma. Cardiology deferred future anticoagulation decisions to PCP. Will continue to defer to PCP. -CHADS-VASc: 4, HAS-BLED: 2 (5) Chronic systolic (congestive) heart failure Comment: -TTE 11/19/2018 EF 50-55% -Continue metoprolol, lisinopril, furosemide (6) DVT prophylaxis Comment: -Continue SCDs Status and Disposition: Inpatient. Surgery co-managing. Cherelle LYMAN, spoke with Dr. Montoya, ID, at [facility], who recommended continuing Zosyn x7 days inpatient with discharge on Augmentin for 3 more days.
[2018-11-26] MEDS: Insulin LISPRO* 1 UNITS UNIT SUBCUT SCH ×3 (00:08→13:15)
[2018-11-26] MEDS: ZOSYN 3.375 GM Q8H per EXTENDED INFUSION IVPB SCH ×4 (05:05→13:16)
[2018-11-26 05:58] LABS: Albumin 3.4 g/dL (3.2-5.2); BUN/Creatinine Ratio 14.8 (8-20); C Reactive Protein 23.78 mg/L (<8.01); Calcium 9.1 mg/dL (8.6-10.3); EGFR African American 113.7 (>60); EGFR Non-African American 93.9 (>60); Globulin 3.4 g/dL (2-4); Total Bilirubin 1.8 mg/dL (0.2-1.0); Total Protein 6.8 g/dL (6.4-8.9)
[2018-11-26] MEDS: Atorvastatin* 40 MG TAB PO SCH (07:26)
[2018-11-26] MEDS: Furosemide TAB* 20 MG PO SCH (07:27)
[2018-11-26] MEDS: Metoprolol Succinate XL TAB* 25 MG PO SCH (07:27)
[2018-11-26] MEDS: Lisinopril TAB* 5 MG PO SCH (07:27)
--- NOTE | 2018-11-26 07:36 | PN ---
Progress Note - Progress Note Date of Service: 11/25/18 SOAP: Subjective: Pt seen and examined. tolerating diet, no complaints Objective: af; vss abdo: soft/ ND/ NT steri strips in place labs noted Assessment: POD 3 lap freddy; resolving cholangitis, on iv abx Plan: IV to PO abx per hosp f/i [facility] no need to repeat labs
[2018-11-26] MEDS: Pantoprazole IV* 40 MG IV SCH (08:01)
--- NOTE | 2018-11-26 08:57 | PN ---
Progress Note - Progress Note Date of Service: 11/26/18 Note: POD#4 sw/p lap freddy for cholangitis Afeb Feels well, no pain khushbu po's ambulating moved bowels Abd benign, soft non-tender Discharge whenever medically able IV abx per ID F/U surgical office 5-7 d
[2018-11-26 11:28] VITALS: BP 111/71
--- NOTE | 2018-11-27 02:14 | DS ---
CC: Dr. Rudolph; Dr. Benavidez; Dr. Parnell; Dr. Seymour; patient's chart; Dr. Haynes. * DISCHARGE SUMMARY: DATE OF ADMISSION: 11/19/18 DATE OF DISCHARGE: To home, 11/26/18 PRIMARY CARE PROVIDER: Dr. Rudolph. CONDITION AT DISCHARGE: Stable. DISCHARGE DIAGNOSIS: Extended-spectrum beta-lactamase Escherichia coli bacteremia with sepsis due to acute cholangitis, status post laparoscopic cholecystectomy performed by Dr. Haynes on 11/22/18. SECONDARY DIAGNOSES: 1. Diabetes. 2. Chronic atrial fibrillation, not anticoagulated since 2018 when the patient developed psoas muscle hematoma. 3. Hyperlipidemia. 4. History of heart disease. MEDICATIONS AT DISCHARGE: Include 1. Augmentin 875 mg b.i.d. for a total of 3 days, then stop. The remaining medications are unchanged from admission and include: 1. Lipitor 40 mg daily. 2. Lasix 40 mg daily. 3. Prednisone 5 mg daily. 4. Metformin 1000 mg daily. 5. Metoprolol succinate 25 mg a day. 6. Omeprazole 1 tablet of 20 mg daily. LABORATORY DATA AND STUDIES PERFORMED DURING THE HOSPITAL STAY: Included: On 11/25/18, white blood cell count of 13.5, hemoglobin of 12.3, hematocrit 39, and platelets of 163. Sodium was 137, potassium of 4.0, chloride of 104, carbon dioxide 26, BUN 12, creatinine 0.81. Liver function tests showed bilirubin level of 1.8, AST of 62, ALT of 133, alkaline phosphatase of 250. C-reactive protein of 23 that was reported on 01/09. Pathology from the gallbladder is still pending at the time of dictation. The patient's MRCP obtained on 11/19/18, impression "common bile duct termination at inferior pancreatic head with etiologies including choledocholithiasis, common bile duct stenosis, and less likely cholangiocarcinoma or ampullary region. Consider followup ERCP." Dr. 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 Free access to the duct and the air enters and exits. Cholangitis. Common duct duct had been cleared and there is no obstruction. Surgery is considered when stable. Cholecystectomy would appear indicated." Transthoracic echocardiogram obtained on 11/19/18 showed EF of 50% to 55% with moderate tricuspid regurgitation and [id number] mitral regurgitation and elevated pulmonary arterial pressures at 52 which is new. CONSULTATIONS DURING THE HOSPITAL STAY: Included Dr. Leno, Dr. Haynes, Dr. Seymour, and Dr. Benavidez from Surgery as well as Dr. Parnell and Dr. Beltran from Gastroenterology. PROCEDURES PERFORMED: Included: 1. ERCP performed by Dr. Beltran as above mentioned on 11/20/18. 2. Laparoscopic cholecystectomy performed by Dr. Haynes on 11/22/18. 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 At that point, the anticoagulation was never restarted. The patient came into the hospital with abdominal pain. For further details of the patient's presentation, please see history and physical obtained on the day of admission. Shortly, the patient was noted to have abdomen and pelvis CTA obtained on 11/19/18 which really did not show any acute abnormalities. Subsequent gallbladder ultrasound obtained on 11/19/18 showed positive sonography of [place] sign and gallbladder wall thickening concerning for acute cholecystitis. The common bile duct was also dilated up to 1 cm. The patient was placed on broad-spectrum antibiotics and the surgical team was consulted. An MRCP done on 11/19/18 was noted as above and recommended ERCP and that was performed a day later by Dr. Beltran. After ERCP treatment, the patient went to the OR on 11/22/18 for laparoscopic cholecystectomy by Dr. Haynes. Postoperatively, he did very well. Diet was advanced without any problems. Please note that the patient's microbiology studies showed up with positive blood cultures for ESBL E. coli as well as Enterococcus casseliflavus. The patient was treated according to the sensitivities with Zosyn for a total of 7 days intravenous treatment. Our service contacted the infectious disease specialist from [place] since our specialist was not available during the time of the patient's treatment. The recommendation was to continue treatment with Zosyn for a total of 7 days and then Augmentin for a total of 3 days orally to complete a 10-day total of antibiotic treatment. The patient is being discharged today after his Zosyn treatment was completed for 7 days. His Augmentin is going to be continued for another 3 days. The patient is recommended to follow up with his primary care provider in approximately 4 to [address] Haynes in approximately 5 to 7 days. The patient is recommended to continue his cardiac diet with small frequent meals due to his recent cholecystectomy. PHYSICAL EXAM AT THE TIME OF DISCHARGE: Blood pressure of 131/66, heart rate of 92 and irregular, respiratory rate 20, oxygen saturation 100% on room air, temperature 98.0. General: The patient is very pleasant 73-year-old male, who is not in acute distress. Alert and oriented x3. HEENT: Head atraumatic, normocephalic. Eyes: Pupils are equal reactive to light and accommodation. Oropharynx is clear. Mucosa moist. Neck: Supple. No JVD. No bruits bilaterally. Cardiovascular: Irregular rate and rhythm. No murmurs. Respiratory: Clear to auscultation bilaterally. Abdomen: Soft and nontender. Bowel sounds are present in all 4 quadrants. Slightly distended. Postoperative incisions are Steri-Striped without evidence of dehiscence or cellulitis. Extremities: There is no edema. Pulses 2+ bilaterally. No clubbing or cyanosis. On neuro evaluation, speech is clear. Cranial nerves II through XII are intact. Motor strength is 5/5 bilaterally. Please also note that the patient was noted to have an acute on chronic atrial fibrillation and his anticoagulation was stopped for iliopsoas hematoma documented in the beginning of 2018. At this point, the patient is in perioperative status. His anticoagulation was not restarted, but the patient is strongly recommended to follow up with primary care provider in regard to consideration of restarting his anticoagulation for his chronic atrial fibrillation due to his [place] VASc score at 4. CONDITION ON DISCHARGE: Stable. Please note that this is a short summary of the patient's hospitalization. Please refer to further medical records for details. TIME SPENT: Approximately 40 minutes was spent on this patient's discharge. [id number]/[facility] #: [id number] EAN
== END 2018-11-26 13:00 | disposition home or self-care (01) | DRG 853 ==
LOC: ED 04:36 → ICU 09:27 → MED 11-20 10:03
PROVIDERS: ADMIT Hospitalist; ATTEND Internal Medicine
PROC: 5A09357 Assistance with Respiratory Ventilation, Less than 24 Consecutive Hours, Continuous Positive Airway Pressure (ICD-10-PCS; 2018-11-19)
PROC: 0F798ZZ Dilation of Common Bile Duct, Via Natural or Artificial Opening Endoscopic (ICD-10-PCS; 2018-11-20)
PROC: 0FT44ZZ Resection of Gallbladder, Percutaneous Endoscopic Approach (ICD-10-PCS; principal; 2018-11-22 13:30)
DX: A41.51 Sepsis due to Escherichia coli [E. coli] (principal); J96.00 Acute respiratory failure, unspecified whether with hypoxia or hypercapnia; I42.8 Other cardiomyopathies; K80.42 Calculus of bile duct with acute cholecystitis without obstruction; I50.22 Chronic systolic (congestive) heart failure; K80.32 Calculus of bile duct with acute cholangitis without obstruction; E78.00 Pure hypercholesterolemia, unspecified; I11.0 Hypertensive heart disease with heart failure; K76.0 Fatty (change of) liver, not elsewhere classified; E78.5 Hyperlipidemia, unspecified; I25.10 Atherosclerotic heart disease of native coronary artery without angina pectoris; R65.20 Severe sepsis without septic shock; E11.9 Type 2 diabetes mellitus without complications; K21.9 Gastro-esophageal reflux disease without esophagitis; I48.2 Chronic atrial fibrillation; E87.6 Hypokalemia; D64.9 Anemia, unspecified; B95.2 Enterococcus as the cause of diseases classified elsewhere; K57.10 Diverticulosis of small intestine without perforation or abscess without bleeding; Z82.49 Family history of ischemic heart disease and other diseases of the circulatory system; I25.2 Old myocardial infarction; Z79.84 Long term (current) use of oral hypoglycemic drugs; Z79.52 Long term (current) use of systemic steroids
CPT/HCPCS: 36415; 71045; 74174; 74181; 74330; 76376; 76705; 80053; 81003; 81015; 82803; 83605; 83690; 84484; 85025; 85027; 85610; 86140; 86850; 86900; 86901; 87040; 87077; 87086; 87186; 87205; 87641; 88304; 93005; 93306; 99285; A9270-GY; C1751; C1769; J0360; J1100; J1644; J1885; J1940; J2250; J2270; J2405; J2543; J2704; J2710; J2930; J3010; J3370; J3490; Q9967